=== PATIENT | female | born 1985 | race African-American/Black ===

== ENCOUNTER 2017-05-27 10:51 | Inpatient (IN) | payer OTHER ==
[~2017-05-27] VITALS: Ht 167.6 cm; Wt 62.7 kg
[~2017-05-27 10:51] MED LIST: ACET325T33 PO; BISA-57 PO; BUPR1PAT TD; BUPR1PAT10 TD; CIPR500T4 PO; DOCU-144 PO; FER325 PO; HYDR-3498 PO; LEVO150T87 PO; LEVO25TA59 PO; MEDR10TA2 PO; MELO-216 PO; NITR-58 PO; ONDA4TAB35 PO; ONDA4TAB8 PO; ORTNOV PO; OXYC-283 PO
[2017-05-27 10:53] VITALS: Ht 167.6 cm; Wt 62.7 kg
[2017-05-27] MEDS ORDERED: ONDANSETRON 4 MG INJ IV STA ×2 (12:10→13:38)
[2017-05-27] MEDS ORDERED: SOD CHLORIDE 0.9% 500 ML IV STA ×2 (12:10→13:52)
[2017-05-27] MEDS ORDERED: HYDROmorphONE 1 MG/ML SYG IV STA (12:10)
[2017-05-27 12:53] LABS: ADD UMIC NO; UR ASCORBIC ACID NEGATIVE (NEGATIVE); UR BILIRUBIN (Dip) NEGATIVE (NEGATIVE); UR BLOOD (Dip) NEGATIVE (NEGATIVE); UR CLARITY CLEAR (CLEAR); UR COLOR YELLOW (YELLOW); UR GLUCOSE (Dip) NEGATIVE (NEGATIVE); UR KETONES (Dip) NEGATIVE (NEGATIVE); UR LEUKOCYTE ESTERASE (Dip) NEGATIVE Leu/ul (NEGATIVE); UR NITRITE (Dip) NEGATIVE (NEGATIVE); UR SPECIFIC GRAVITY (Dip) 1.013 (1.003-1.030); UR TOTAL PROTEIN (Dip) NEGATIVE (NEGATIVE); UR UROBILINOGEN (Dip) 1+ mg/dL (NEGATIVE)
[2017-05-27 12:58] LABS: EOSINOPHILS # 0.2 10^3/ul (0.0-0.5); EOSINOPHILS % 4.2 % (0.0-7.0); HEMATOCRIT 23.7 % (37.0-47.0); LYMPHOCYTES # 1.6 10^3/ul (0.8-2.9); LYMPHOCYTES % 42.8 % (15.0-51.0); MEAN CORPUSCULAR HGB CONC 33.8 g/dl (32.0-37.0); MEAN CORPUSCULAR VOLUME 91.9 fl (82.0-101.0); MONOCYTE # 0.5 10^3/ul (0.3-0.9); NEUTROPHIL # 1.5 10^3/ul (1.6-7.5); NEUTROPHILS % 39.7 % (39.0-77.0); PLATELET COUNT 136 10^3/UL (140-415); RED BLOOD COUNT 2.58 10^6/ul (4.20-5.40); RED CELL DISTRIBUTION WIDTH 13.6 % (11.5-14.5); WHITE BLOOD COUNT 3.8 10^3/ul (4.8-10.8)
[2017-05-27 12:59] LABS: MEAN PLATELET VOLUME 11.4 fl (7.4-10.4)
[2017-05-27 13:17] LABS: ALBUMIN 4.6 g/dl (3.3-4.9); ALBUMIN/GLOBULIN RATIO 0.83; BILIRUBIN,INDIRECT 0.3 mg/dl (0-1.1); BILIRUBIN,TOTAL 0.3 mg/dl (0.2-1.3); CALCIUM 9.6 mg/dl (8.4-10.2); CREATININE 1.32 mg/dl (0.44-1.00); TOTAL PROTEIN 10.1 g/dl (6.1-8.1)
[2017-05-27] MEDS ORDERED: HYDROmorphONE 2 MG/ML SYG IV STA ×2 (13:38→15:10)
--- NOTE | 2017-05-27 15:02 | ERD ---
ER Documentation Chief Complaint Chief Complaint Complains of pain from lupus flare up HPI 31-year-old -[place] female with history of sickle cell disease, lupus, ITP, presents to the emergency department complaining of generalized arthralgia and muscle pain for 2 days, according to the patient, probably caused by upper respiratory symptoms. The pain is described as throbbing, 10/10. She has been taking Springer without improvement of the symptoms. Denies fevers, chills, no chest pain, no abdominal pain, no urinary symptoms. ROS A 12-point review of systems was performed and negative other than presented in the history of present illness. SYSTEMIC symptoms: no fever, chills, no night sweats, no weight loss EYE symptoms: No blurred vision, no eye discharge OTOLARYNGEAL symptoms: No hearing loss. No ear pain, +sore throat CARDIOVASCULAR symptoms: No chest pain or discomfort, no palpitations. PULMONARY symptoms: No dyspnea, no cough, no wheezing. GASTROINTESTINAL symptoms: No abdominal pain, no nausea, no vomiting, no diarrhea MUSCULOSKELETAL symptoms: Generalized arthralgias and muscle aches. NEUROLOGY symptoms: No confusion, no syncope, no numbness or tingling. SKIN: No rashes Medications Home Meds Active Scripts Norethindrone-Ethinyl Estradiol (Ortho-Novum ()) 0.035-1 Mg Tablet, 1 TAB PO DAILY, #28 TAB Prov:MARIA L CASTILLO PA-C 03/26/16 Buprenorphine (BUTRANS) 1 Each Patch.tdwk, 10 MG TD weekly, #1 BOX Prov:NOBLE CORRIGAN PA-C 03/08/16 Buprenorphine (BUTRANS) 1 Each Patch.tdwk, 1 EACH TD weekly, #1 BOX Prov:NOBLE CORRIGAN PA-C 03/08/16 Ciprofloxacin Hcl* (Ciprofloxacin Hcl*) 500 Mg Tablet, 500 MG PO BID for 7 Days , TAB Prov:NANETTE SAGASTUME NP 01/26/16 Ondansetron Hcl* (Zofran* ODT) 4 mg -ODT Tab.disper, 4 MG PO Q8 Y for NAUSEA AND /OR VOMITING, #30 TAB Prov:NANETTE SAGASTUME NP 01/26/16 Hydrocodone Bit-Acetaminophen* (Springer*) 5-325 Mg Tab, 1 TAB PO Q6 Y for PAIN, # 20 TAB Prov:NANETTE SAGASTUME NP 01/26/16 Ondansetron Hcl* (Zofran*) 4 Mg Tablet, 4 MG PO Q6H for NAUSEA AND/OR VOMITING, #30 TAB Prov:MICA VALENTINE PA-C 12/27/15 Nitrofurantoin Monohyd Macrocr* (Macrobid*) 100 Mg Capsr, 100 MG PO BID for 14 Days, CAP Prov:MICA VALENTINE PA-C 12/27/15 Hydrocodone Bit-Acetaminophen* (Springer*) 5-325 Mg Tab, 1 TAB PO Q6 Y for PAIN, # 7 TAB Prov:MICA VALENTINE PA-C 12/27/15 Docusate Sodium* (Colace*) 100 Mg Capsule, 100 MG PO TID, #60 CAP Prov:NANETTE SAGASTUME NP 12/10/15 Ondansetron Hcl* (Zofran* ODT) 4 mg -ODT Tab.disper, 4 MG PO Q8 Y for NAUSEA AND /OR VOMITING, #30 TAB Prov:NANETTE SAGASTUME NP 12/10/15 Oxycodone Hcl-Acetaminophen* (Percocet*) 7.5-325 Mg Tablet, 1 TAB PO Q6 Y for SEVERE PAIN LEVEL 7-10, #20 TAB Prov:NANETTE SAGASTUME NP 12/10/15 Ondansetron Hcl* (Zofran* ODT) 4 mg -ODT Tab.disper, 4 MG PO Q6 Y for NAUSEA AND /OR VOMITING, #10 TAB Prov:MICA VALENTINE PA-C 11/28/15 Acetaminophen* (Tylenol*) 325 Mg Tablet, 2 TAB PO Q6 Y for PAIN AND OR ELEVATED TEMP, #20 TAB Prov:MICA VALENTINE PA-C 11/28/15 Medroxyprogesterone Acetate* (Provera*) 10 Mg Tablet, 10 MG PO DAILY for 5 Days , TAB Prov:MICA VALENTINE PA-C 11/28/15 Ferrous Sulfate* (Ferrous Sulfate*) 325 Mg Tabec, 325 MG PO BID, #60 TAB Prov:AUGUSTIN BURKETT PA-C 11/06/15 Ondansetron Hcl* (Zofran* ODT) 4 mg -ODT Tab.disper, 4 MG PO Q8 Y for NAUSEA AND /OR VOMITING, #30 TAB Prov:NANETTE SAGASTUME NP 08/27/15 Ondansetron Hcl* (Zofran* ODT) 4 mg -ODT Tab.disper, 4 MG PO Q6 Y for NAUSEA AND /OR VOMITING, #30 TAB Prov:CHON CULLEN MD 08/15/15 Levothyroxine Sodium* (Synthroid*) 150 Mcg Tab, 150 MCG PO AC BREAKFAST for 30 Days, TAB Prov:RICK VIERA MD 08/10/15 Docusate Sodium* (Colace*) 100 Mg Cap, 100 MG PO Q12H Y for CONSTIPATION for 14 Days, CAP Prov:RICK VIERA MD 08/10/15 Bisacodyl* (Dulcolax*) 5 Mg Tabec, 5 MG PO DAILY Y for CONSTIPATION for 30 Days , BOT Prov:RICK VIERA MD 08/10/15 Reported Medications Levothyroxine Sodium* (Synthroid*) Unknown Strength Tablet, PO BEFORE BREAKFAST , #30 TAB 12/10/15 Meloxicam* (Meloxicam*) 7.5 Mg Tablet, 7.5 MG PO DAILY, #30 TAB 08/07/15 Buprenorphine (Butrans) 1 Each Patch.tdwk, 1 EACH TD DAILY 08/07/15 Hydrocodone Bit-Acetaminophen* (Springer*) 5-325 Mg Tab, 1 TAB PO Q4H Y for PAIN, TAB 08/07/15 Allergies Allergies: Coded Allergies: immune globulin,gamma (IgG) human (Verified Allergy, Unknown, HYPOTENSION , 05/27/17) AFTER HYPOTENSION EVENT RELATED TO CARIMUNE, PATIENT TOLERATED 4 DAYS OF CARIMUNE THERAPY AT A MAX RATE OF 50 ML/HR STARTED EVERY DAY AT 25 ML/HR THEN INCREASED TO 50 ML/HR AFTER ON HOUR WAS PREMEDICATED WITH BENADRYL 50 MG PO 30 MINUTES PRIOR INFUSION DAILY VM PMhx/Soc History of Surgery: Yes (C-SEC X1, SPLENECTOMY, IVC FILTER) Anesthesia Reaction: No Hx Neurological Disorder: No Hx Respiratory Disorders: No Hx Cardiac Disorders: No Hx Psychiatric Problems: No Hx Miscellaneous Medical Probl: Yes (LUPUS, ITP, hypothyroidislm, sickle cell disease) Hx Alcohol Use: No Hx Substance Use: No Hx Tobacco Use: Yes Smoking Status: Current some day smoker Physical Exam Vitals Vital Signs Date Time Temp Pulse Resp B/P Pulse Ox O2 Delivery O2 Flow Rate FiO2 05/27/17 10:53 98.1 92 20 125/74 96 Physical Exam Patient is in mild distress due to pain, vital signs stable. Alert and fully oriented. EYES: PERRLA, EOMI, Sclera and conjunctiva appear normal. EARS: Canals clear, tympanic membranes WNL THROAT: Normal oropharynx. NECK: Supple, No lymphadenopathy. Full ROM without pain or tenderness. HEART: RRR, no rubs, murmurs, clicks or gallops. LUNGS: Clear to auscultation. ABDOMEN: Soft, non-tender without masses or hepatosplenomegaly. EXTREMITIES: No edema bilaterally. BACK: Full ROM, no deformity, normal back exam NEURO: Cranial nerves grossly intact, no motor or sensory deficit Result Diagram: 05/27/17 1245 05/27/17 1245 Results 24 hrs Laboratory Tests Test 05/27/17 12:25 05/27/17 12:45 05/27/17 17:45 Urine Color YELLOW Urine Clarity CLEAR Urine pH 5.0 Urine Specific Lena 1.013 Urine Ketones NEGATIVEmg/dL Urine Nitrite NEGATIVEmg/dL Urine Bilirubin NEGATIVEmg/dL Urine Urobilinogen 1+mg/dL Urine Leukocyte Esterase NEGATIVELeu/ul Urine Hemoglobin NEGATIVEmg/dL Urine Glucose NEGATIVEmg/dL Urine Total Protein NEGATIVEmg/dl White Blood Count 3.810^3/ul Red Blood Count 2.5810^6/ul Hemoglobin 8.0g/dl Hematocrit 23.7% Mean Corpuscular Volume 91.9fl Mean Corpuscular Hemoglobin 31.0pg Mean Corpuscular Hemoglobin Concent 33.8g/dl Red Cell Distribution Width 13.6% Platelet Count 38103^3/UL Mean Platelet Volume 11.4fl Neutrophils % 39.7% Lymphocytes % 42.8% Monocytes % 12.0% Eosinophils % 4.2% Basophils % 1.0% Nucleated Red Blood Cells % 0.0/100WBC Neutrophils # 1.510^3/ul Lymphocytes # 1.610^3/ul Monocytes # 0.510^3/ul Eosinophils # 0.210^3/ul Basophils # 0.010^3/ul Nucleated Red Blood Cells # 0.010^3/ul Absolute Reticulocyte Count 0.026X10^6 Percent Reticulocyte Count 1.0% Sodium Level 141mmol/L Potassium Level 4.0mmol/L Chloride Level 102mmol/L Carbon Dioxide Level 29mmol/L Anion Gap 14 Blood Urea Nitrogen 6mg/dl Creatinine 1.32mg/dl Glucose Level 79mg/dl Calcium Level 9.6mg/dl Total Bilirubin 0.3mg/dl Direct Bilirubin 0.00mg/dl Indirect Bilirubin 0.3mg/dl Aspartate Amino Transf (AST/SGOT) 56IU/L Alanine Aminotransferase (ALT/SGPT) 66IU/L Alkaline Phosphatase 50IU/L Total Protein 10.1g/dl Albumin 4.6g/dl Globulin 5.50g/dl Albumin/Globulin Ratio 0.83 Prothrombin Time 15.3Sec Prothrombin Time Ratio 1.2 INR International Normalized Ratio 1.19 Activated Partial Thromboplast Time 34.0Sec Current Medications Medications (Trade) Dose Ordered Sig/Navi Route PRN Reason Start Time Stop Time Status Last Admin Dose Admin Sodium Chloride (NS) 500 ml @ 500 mls/hr Q1H STAT IV 05/27/17 12:10 05/27/17 13:09 DC 05/27/17 12:44 Hydromorphone HCl (Dilaudid) 1 mg ONCE STAT IV 05/27/17 12:10 05/27/17 12:15 DC 05/27/17 12:44 Ondansetron HCl (Zofran Inj) 4 mg ONCE STAT IV 05/27/17 12:10 05/27/17 12:15 DC 05/27/17 12:43 Ondansetron HCl (Zofran Inj) 4 mg ONCE STAT IV 05/27/17 13:38 05/27/17 13:40 DC 05/27/17 13:54 Hydromorphone HCl 2 mg 2 mg ONCE STAT IV 05/27/17 13:38 05/27/17 13:40 DC 05/27/17 13:54 Sodium Chloride 500 ml @ 500 mls/hr Q1H STAT IV 05/27/17 13:52 05/27/17 14:51 DC 05/27/17 13:59 Sodium Chloride (NS) 1,000 ml @ 1,000 mls/hr Q1H ONCE IV 05/27/17 15:30 05/27/17 16:29 DC 05/27/17 15:42 Hydromorphone HCl (Dilaudid) 2 mg ONCE STAT IV 05/27/17 15:10 05/27/17 15:19 DC 05/27/17 15:43 Ondansetron HCl (Zofran Inj) 4 mg BRIDGE ORDER PRN IV NAUSEA AND/OR VOMITING 05/27/17 18:30 05/28/17 18:29 Acetaminophen 650 mg 650 mg ER BRIDGE PRN PO MILD PAIN/FEVER 05/27/17 18:30 05/28/17 18:29 Sodium Chloride (NS) 1,000 ml @ 125 mls/hr Q8H IV 05/27/17 18:09 UNV IV Flush (NS 3 ml) 3 ml PER PROTOCOL IV 05/27/17 18:30 UNV Ondansetron HCl (Zofran Inj) 4 mg Q6H PRN IV NAUSEA AND/OR VOMITING 05/27/17 18:30 UNV Acetaminophen (Tylenol Tab) 650 mg Q6H PRN PO PAIN LEVEL 1-3 OR FEVER 05/27/17 18:30 UNV Oxycodone/ Acetaminophen (Percocet (5/ 325)) 2 tab Q6H PRN PO SEVERE PAIN LEVEL 7-10 05/27/17 18:30 UNV Hydromorphone HCl (Dilaudid) 0.5 mg Q4H PRN IV SEVERE PAIN LEVEL 7-10 05/27/17 18:30 UNV Famotidine (Pepcid) 20 mg Q12 PO 05/27/17 21:00 UNV Bisacodyl (Dulcolax) 5 mg DAILY PRN PO CONSTIPATION 05/27/17 18:30 UNV Ferrous Sulfate (Ferrous Sulfate (Ec)) 325 mg BID PO 05/27/17 21:00 UNV Levothyroxine Sodium (Synthroid) 150 mcg AC BREAKFAST PO 05/28/17 07:00 UNV Medroxyprogesterone Acetate (Provera) 10 mg DAILY PO 05/28/17 09:00 UNV Docusate Sodium (Colace) 100 mg TID PO 05/27/17 21:00 UNV Procedures/MDM 31y/o -[place] female patient with history of sickle cell, lupus, ITP, presents to the ED c/o intractable pain for 3 days. Vital signs stable, Physical exam diffuse tenderness to palpation. Differential diagnosis include but not limited to: Vaso-occlusive crisis, aplastic crisis, splenic sequestration crisis, less likely acute chest syndrome. Pertinent Data: Labs: CBC: Hemoglobin 8.0, hematocrit 3.8, BMP: Creatinine 1.3, normal electrolytes. Retic count: 1% Radiology: CXR: normal Physical examination and clinical presentation consistent most likely with vaso- occlusive crisis with intractable pain. During the ED course the patient received treatment with multiple doses of Dilaudid up to 6mg and IV hydration 2 L of normal saline, persistent with severe pain 03/29, therefore, I will request an evaluation for hospitalist for admission. Case discussed with Dr. Jorge who accepts the admission. The patient is stable to go to [facility] [place]. Results and clinical impression discussed with patient who agrees with management. The patient most likely needs to be admitted for pain management. Disclaimer: Inadvertent spelling and grammatical errors are likely due to EHR/ dictation software use and do not reflect on the overall quality of patient care. Also, please note that the electronic time recorded on this note does not necessarily reflect the actual time of the patient encounter. Departure Diagnosis: Primary Impression: Intractable pain Additional Impressions: Sickle cell anemia Lupus (systemic lupus erythematosus) Condition: Stable RENETTA MERAZ MD May 27, 2017 15:02
[2017-05-27] MEDS ORDERED: SOD CHLORIDE 0.9% 1,000 ML IV ONE (15:30)
--- NOTE | 2017-05-27 15:41 | RADRPT ---
PROCEDURE: XR Chest. CLINICAL INDICATION: Chest pain TECHNIQUE: PA and Lateral views of the chest were obtained. COMPARISON: None. FINDINGS: The cardiomediastinal silhouette is within normal limits. The lungs are clear. No signs of pleural fluid or pneumothorax are seen. The osseous structures and soft tissues are unremarkable. Surgical clips are seen in the left upper quadrant. IMPRESSION: No evidence for active cardiopulmonary disease. RPTAT:AAJJ Caden Elkins Physician Date Time Electronically viewed and signed by Caden Elkins Physician on 05/27/2017 15:40 /
[2017-05-27] MEDS ORDERED: ONDANSETRON 4 MG INJ IV PRN (18:30)
[2017-05-27] MEDS ORDERED: HYDROmorphONE 0.5 MG/0.5 ML SYG IV PRN (18:30)
[2017-05-27] MEDS ORDERED: ACETAMINOPHEN 325 MG TAB PO PRN ×2 (18:30)
[2017-05-27] MEDS ORDERED: NACL 0.9% 3 ML SYG IV SCH (18:30)
[2017-05-27] MEDS ORDERED: BISACODYL (EC) 5 MG TAB PO PRN ×2 (18:30→19:30)
[2017-05-27 18:33] LABS: INR 1.19; PROTIME 15.3 Sec (11.9-14.9); PT RATIO 1.2
[2017-05-27] MEDS: SOD CHLORIDE 0.9% 1,000 ML IV SCH (19:26)
[2017-05-27] MEDS: HYDROmorphONE 1 MG/ML SYG IV PRN (19:43)
--- NOTE | 2017-05-27 20:22 | HP ---
Date/Time of Note Date/Time of Note DATE: 05/27/17 TIME: 20:00 Assessment/Plan VTE Prophylaxis VTE Prophylaxis Intervention: ambulation, anti-embolic stocking Lines/Catheters IV Catheter Type (from Nrsg): Peripheral IV Central line still needed: No Urinary Cath still in place: No Assessment/Plan Problems: (1) Sickle cell crisis Status: Acute Comment: The patient is having sickle cell crisis with intractable pain over body including multiple and bilateral hand and leg joint pain . No arthritic change leaded to active lupus at this time, Plan 1.Hydration 2.Pain management with IV Dilaudid for severe pain and Percocet for moderate pain 3.Ferrous sulfate 4.To find out if there is any precipitating factor like sepsis or any source of infection. Procalcitonin level checked . Blood culture if T >101 . (2) Intractable pain Status: Acute Comment: The patient is having sickle cell crisis with intractable pain over body including multiple and bilateral hand and leg joint pain . No arthritic change leaded to active lupus at this time, Plan 1.Hydration 2.Pain management with IV Dilaudid for severe pain and Percocet for moderate pain 3.Ferrous sulfate 4.To find out if there is any precipitating factor like sepsis or any source of infection. Procalcitonin level checked . Blood culture if T >101 . (3) Sickle cell anemia Status: Chronic Comment: Repeated CBC in the morning Reticulocyte counts checked Ferrous sulfate and folic acid to be continued. Stool for occult blood if applicable Qualifiers: Sickle-cell associated disorders: with unspecified crisis Qualified Code: D57.00 - Hb-SS disease with crisis (4) Pain syndrome, chronic Status: Acute Comment: Acute on top of chronic pain syndrome. Butrans held but will be resumed upon discharge IV Dilaudid for sever pain and Percocet given for moderate pain given. (5) Anemia Status: Chronic Comment: Due to Sickle cell trait S/P splenectomy and Lupus. Iron study . folic acid given Cont'd Hospitalization Reason: IV pain management and IV fluid given HPI/ROS Admit Date/Time Admit Date/Time 05/27/2017 ROS Constitutional: fatigue, nausea, poor po, No chills, No diaphoresis, No disoriented, No febrile, No improved, No no complaints, No other, No weight change Eyes: other (upper eye lids swollen), No discharge, No no complaints, No pain, No redness, No visual change ENT: No bleeding, No congestion, No discharge, No dysphagia, No no complaints, No other, No pain, No sore throat Respiratory: No cough, No no complaints, No other, No pain, No pleuritic pain, No shortness of breath, No sputum, No wheezing Cardiovascular: No chest pain, No edema, No lightheadedness, No no complaints, No orthopenea, No other, No palpitations, No paroxysmal nocturnal dyspnea Gastrointestinal: decreased appetite, nausea, No blood, No constipation, No diarrhea, No flatus, No no complaints, No other , No pain, No passing stool, No vomiting Musculoskeletal: back pain, bone/joint pain, neck pain, No no complaints, No other, No restricted range of motion, No swelling Skin: No bruising, No erythema, No laceration, No no complaints, No other, No pruritis, No rash, No skin lesions Neurologic: No confusion, No dizziness, No focal-weakness, No headache, No no complaints, No other, No seizure, No syncope Endocrine: No dry skin, No no complaints, No other, No polydypsia, No polyuria , No temp intolerance, No weight change Lymphatic: No adenopathy, No lymphadema, No no complaints, No other, No tender nodes Psychological: No anxiety, No confusion, No depression, No nl mood/affect, No no complaints, No other, No suicidal Immunologic: No immunodeficiency, No no complaints, No other, No pruritis, No rhinitis, No urticaria PMH/Family/Social Past Medical History Sickle cell trait Chronic ITP Chronic pain on Butrans Hypothyroidism Lupus Past Surgical History Past Surgical Hx: other (splenectomy,Hystercetomy and IVC filter placement in 2012) Family History Significant Family History: other (sicckle diease and Lupus) Social History Alcohol Use: none Smoking Status: Current some day smoker (1 -2 cigarettes every 1-2 days) Drug Use: none Exam/Review of Systems Vital Signs Vitals Vital Signs Date Time Temp Pulse Resp B/P Pulse Ox O2 Delivery O2 Flow Rate FiO2 05/27/17 19:23 97.5 67 20 109/60 97 Room Air Exam Constitutional: alert, oriented, well developed Psych: nl mood/affect, no complaints, No anxiety, No confusion, No depression, No other, No suicidal Head: atraumatic, normocephalic, No hematomas, No lacerations, No other Eyes: EOMI, PERRL, nl sclera, other (moderately pallor but no jaundice) ENMT: mucosa pink and moist, nl external ears & nose, nl lips & teeth, nl nasal mucosa & septum, No intubated, No other, No tympanic membranes Neck: non-tender, supple, No bruits, No jvd, No masses, No nuchal rigidity, No other, No thyromegaly Respiratory: clear to auscultation, normal air movement, No congested cough, No crackles/rales, No diminished breath sounds, No intercostal retraction, No labored breathing, No other, No respirations, No tactile fremitus, No wheezing Cardiovascular: nl pulses, regular rate and rhythm, No S3, No S4, No bruits, No diastolic murmur, No edema, No gallop, No irregular rhythm, No jugular venous distention (JVD), No murmurs/extra sounds, No other, No rub, No systolic murmur Gastrointestinal: nl liver, spleen, non-tender, soft, No ascites, No bowel sounds, No distended, No firm, No hepatomegaly, No mass , No other, No rebound or guarding, No splenomegaly, No surgical scars, No tender Musculoskeletal: nl extremities to inspection, nl gait and stance, No joint tenderness, No muscle tone, No muscle weakness, No other, No range of motion, No spine non-tender, No swelling Extremities: No calf tenderness, No clubbing, No cyanosis, No edema, No normal pulses, No other, No palpable cord, No pitting pedal edema, No tenderness Neurological: KNIFE GLAZER II-XII intact, nl mental status, nl speech, nl strength Skin: nl turgor, No diaphoresis, No ecchymosis, No laceration, No other, No puncture, No rash or lesions Lymph: No enlarged, No nontender, No other Labs Result Diagram: 05/27/17 1245 05/27/17 1245 Medications Medications Current Medications Sodium Chloride (NS) 1,000 ml @ 125 mls/hr Q8H IV Last administered on t 19:26; Admin Dose 125 MLS/HR; Start 12/8/17 at 18:09 Ondansetron HCl (Zofran Inj) 4 mg Q6H PRN IV NAUSEA AND/OR VOMITING; Start 05/27/17 at 18:30 Oxycodone/ Acetaminophen (Percocet (5/ 325)) 2 tab Q6H PRN PO SEVERE PAIN LEVEL 7-10; Start 05/27/17 at 18:30 Famotidine (Pepcid) 20 mg Q12 PO ; Start 05/27/17 at 21:00 Ferrous Sulfate (Ferrous Sulfate (Ec)) 325 mg BID PO ; Start 05/27/17 at 21:00 Medroxyprogesterone Acetate (Provera) 10 mg DAILY PO ; Start 05/28/17 at 09:00 Docusate Sodium (Colace) 100 mg TID PO ; Start 05/27/17 at 21:00 Hydromorphone HCl (Dilaudid) 1 mg Q4H PRN IV SEVERE PAIN LEVEL 7-10 Last administered on 05/27/17t 19:43; Admin Dose 1 MG; Start 05/27/17 at 22:30 Bisacodyl (Dulcolax) 10 mg DAILY PRN PO CONSTIPATION; Start 05/27/17 at 19:30 NICOL CHAVEZ MD May 27, 2017 20:14
[2017-05-27] MEDS ORDERED: FERROUS SULFATE (EC) 325 MG TAB PO SCH (21:00)
[2017-05-27 22:29] VITALS: TEMP 98
[2017-05-27] MEDS: FAMOTIDINE 20 MG TAB PO SCH (22:34)
[2017-05-28] VITALS: BP 107/67; PULSE 56; RESP 18
[2017-05-28] MEDS: DIPHENHYDRAMINE 50 MG INJ IV SCH ×5 (00:17→18:01)
[2017-05-28] MEDS: DOCUSATE SODIUM 100 MG CAP PO SCH ×4 (00:17→20:57)
[2017-05-28] MEDS: HYDROmorphONE 1 MG/ML SYG IV PRN ×2 (00:24→05:32)
[2017-05-28] MEDS: METHYLPREDNISOLONE 125 MG INJ IV SCH ×4 (00:34→18:01)
[2017-05-28] MEDS: OXYCODONE/ACETAMINOPHEN (5/325) TAB PO PRN (03:09)
[2017-05-28] MEDS: SOD CHLORIDE 0.9% 1,000 ML IV SCH ×3 (03:11→12:54)
[2017-05-28 05:45] LABS: HEMATOCRIT 22.8 % (37.0-47.0); HEMOGLOBIN 7.4 g/dl (12.0-16.0); MEAN CORPUSCULAR HEMOGLOBIN 31.1 pg (29.0-33.0); MEAN CORPUSCULAR HGB CONC 32.5 g/dl (32.0-37.0); MEAN CORPUSCULAR VOLUME 95.8 fl (82.0-101.0); PLATELET COUNT 115 10^3/UL (140-415); RED BLOOD COUNT 2.38 10^6/ul (4.20-5.40); RED CELL DISTRIBUTION WIDTH 14.1 % (11.5-14.5); WHITE BLOOD COUNT 5.2 10^3/ul (4.8-10.8)
[2017-05-28 06:11] LABS: POSITIVE DIFF @See below
[2017-05-28] MEDS: LEVOTHYROXINE 150 MCG TAB PO SCH (07:25)
[2017-05-28 07:53] LABS: ADD UMIC NO; UR ASCORBIC ACID NEGATIVE (NEGATIVE); UR BILIRUBIN (Dip) NEGATIVE (NEGATIVE); UR BLOOD (Dip) NEGATIVE (NEGATIVE); UR CLARITY CLEAR (CLEAR); UR COLOR YELLOW (YELLOW); UR GLUCOSE (Dip) NEGATIVE (NEGATIVE); UR KETONES (Dip) NEGATIVE (NEGATIVE); UR LEUKOCYTE ESTERASE (Dip) NEGATIVE Leu/ul (NEGATIVE); UR NITRITE (Dip) NEGATIVE (NEGATIVE); UR SPECIFIC GRAVITY (Dip) 1.012 (1.003-1.030); UR TOTAL PROTEIN (Dip) NEGATIVE (NEGATIVE); UR UROBILINOGEN (Dip) NEGATIVE (NEGATIVE)
[2017-05-28 08:00] VITALS: BP 100/60; RESP 18
[2017-05-28] MEDS ORDERED: HYDROmorphONE 0.5 MG/0.5 ML SYG IV PRN (09:00)
[2017-05-28] MEDS ORDERED: MEDROXYPROGESTERONE 10 MG TAB PO SCH (09:00)
[2017-05-28] MEDS: FAMOTIDINE 20 MG TAB PO SCH ×2 (09:20→20:57)
[2017-05-28] MEDS ORDERED: DIPHENHYDRAMINE 50 MG INJ IV PRN (09:30)
[2017-05-28 09:41] LABS: IRON 76 ug/dl (35-150)
[2017-05-28 09:50] LABS: TOTAL IRON BINDING CAPACITY 252 ug/dl (241-421)
[2017-05-28] MEDS ORDERED: FUROSEMIDE 20 MG INJ IV ONE (10:00)
[2017-05-28] MEDS ORDERED: SOD CHLORIDE 0.9% 250 ML IV* ONE (10:00)
--- NOTE | 2017-05-28 10:31 | PN ---
Date/Time of Note Date/Time of Note DATE: 05/28/17 TIME: 10:12 Assessment/Plan VTE Prophylaxis VTE Prophylaxis Intervention: ambulation, anti-embolic stocking Lines/Catheters IV Catheter Type (from Nrsg): Peripheral IV Central line still needed: No Urinary Cath still in place: No Assessment/Plan Problems: (1) Sickle cell anemia Status: Chronic Comment: Blood transfusion given. She is medicated with Benadryl,Solu Medrol before blood transfusion and Lasix given after 1 U PRBC given. CBC repeated in A.M. 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 Plan to discharge her home tomorrow if her pain controlled and her weakness and tiredness better after blood transfusion. (4) Pain syndrome, chronic Status: Acute Comment: Butrans patch resumed along with IV Dilaudid for breakthrough pain. (5) Lupus (systemic lupus erythematosus) Status: Chronic Comment: IV Solumedral given Qualifiers: Systemic lupus erythematosus organ involvement: unspecified (6) Anemia Status: Chronic Comment: It is relate to sickle cell crisis at this time. She has symptomatic anemia. She feels weak ,short of breath and tired when walking 2 levels of upstairs. 2 Units PRBCs transfusion given today .Repeated CBC after 2 Units PRBCs Qualifiers: Anemia type: other cause Other causes of anemia: chronic disease, other Qualified Code: D63.8 - Anemia in other chronic diseases classified elsewhere (7) Hypothyroid Status: Chronic Comment: TSH repeated in A.M. Synthroid resumed Qualifiers: Hypothyroidism type: acquired Qualified Code: E03.9 - Acquired hypothyroidism Cont'd Hospitalization Reason: Blood tansfusion,IV hydration and IV Dilaudid given as pain management Subjective 24 Hr Interval Summary Free Text/Dictation She stated that she was a little bit better. She is still having generalized aching pain over her body. Dilaudid was helpful for her at this time. She was still having poor appetite since yesterday. No headache or blurred vision. No blood in urine or in stool. Denied N/V. No abdominal pain, Upper eye lid was swollen still. No flu like symptom today. No fever nor chill. No chest pain nor short of breath. No PND or orthopnea. Constitutional: No chills, No diaphoresis, No disoriented, No febrile, No improved, No no complaints, No other, No poor po, No requiring IVF, No requiring O2 Eyes: other (swollen upper eye lids), No discharge, No no complaints, No pain, No redness, No visual change Respiratory: No cough, No no complaints, No other, No pain, No pleuritic pain, No shortness of breath, No sputum, No wheezing Cardiovascular: No chest pain, No edema, No lightheadedness, No no complaints, No orthopenea, No other, No palpitations, No paroxysmal nocturnal dyspnea Gastrointestinal: No blood, No constipation, No decreased appetite, No diarrhea , No flatus, No nausea, No no complaints, No other, No pain, No passing stool, No vomiting Genitourinary: No bleeding, No discharge, No dysuria, No flank pain, No hematuria, No no complaints, No other Musculoskeletal: back pain, bone/joint pain, other (generalized body ache and multiple wrist and knee joints pain), No neck pain, No no complaints, No restricted range of motion, No swelling Skin: No bruising, No erythema, No laceration, No no complaints, No other, No pruritis, No rash, No skin lesions Neurologic: No confusion, No dizziness, No focal-weakness, No headache, No no complaints, No other, No seizure, No syncope Endocrine: No dry skin, No no complaints, No other, No polydypsia, No polyuria , No temp intolerance Lymphatic: No adenopathy, No lymphadema, No no complaints, No other, No tender nodes Psychological: No anxiety, No confusion, No depression, No nl mood/affect, No no complaints, No other, No suicidal Immunologic: No immunodeficiency, No no complaints, No other, No pruritis, No rhinitis, No urticaria Exam/Review of Systems Vital Signs Vitals Vital Signs Date Time Temp Pulse Resp B/P Pulse Ox O2 Delivery O2 Flow Rate FiO2 05/28/17 08:00 97.9 60 18 100/60 95 05/27/17 22:29 Room Air Intake and Output 05/27/17 05/27/17 05/28/17 15:00 23:00 07:00 Intake Total 1730 ml Output Total 600 ml Balance 1130 ml Exam Constitutional: alert, oriented, well developed Psych: nl mood/affect, no complaints, No anxiety, No confusion, No depression, No other, No suicidal Head: atraumatic, normocephalic Eyes: EOMI, PERRL, nl lids, nl sclera, other (markedly pallor) ENMT: mucosa pink and moist, nl external ears & nose, nl lips & teeth, nl nasal mucosa & septum, No intubated, No other, No tympanic membranes Neck: non-tender, supple, No bruits, No jvd, No masses, No nuchal rigidity, No other, No thyromegaly Respiratory: clear to auscultation, normal air movement, No congested cough, No crackles/rales, No diminished breath sounds, No intercostal retraction, No labored breathing, No other, No respirations, No tactile fremitus, No wheezing Cardiovascular: nl pulses, regular rate and rhythm Gastrointestinal: nl liver, spleen, non-tender, soft, No ascites, No bowel sounds, No distended, No firm, No hepatomegaly, No mass , No other, No rebound or guarding, No splenomegaly, No surgical scars, No tender Musculoskeletal: nl extremities to inspection, nl gait and stance, No joint tenderness, No muscle tone, No muscle weakness, No other, No range of motion, No spine non-tender, No swelling Extremities: normal pulses, No calf tenderness, No clubbing, No cyanosis, No edema, No other, No palpable cord, No pitting pedal edema, No tenderness Neurological: AIRCONDITIONING ENGINEER II-XII intact, nl mental status, nl speech, nl strength, No DTR's symmetric, No confused, No focal weakness, No lethargic, No numbness , No other, No reflexes, No unresponsive Skin: nl turgor, No diaphoresis, No ecchymosis, No laceration, No other, No puncture, No rash or lesions Lymph: nl lymph nodes, No enlarged, No nontender, No other Results Result Diagram: 05/28/17 0423 05/27/17 1245 Results 24 hrs Laboratory Tests Test 05/27/17 12:25 05/27/17 12:45 05/27/17 17:45 05/28/17 00:15 Urine Color YELLOW YELLOW Urine Clarity CLEAR CLEAR Urine pH 5.0 5.0 Urine Specific [place] 1.013 1.012 Urine Ketones NEGATIVE NEGATIVE Urine Nitrite NEGATIVE NEGATIVE Urine Bilirubin NEGATIVE NEGATIVE Urine Urobilinogen 1+ H NEGATIVE Urine Leukocyte Esterase NEGATIVE NEGATIVE Urine Hemoglobin NEGATIVE NEGATIVE Urine Glucose NEGATIVE NEGATIVE Urine Total Protein NEGATIVE NEGATIVE White Blood Count 3.8 #L Red Blood Count 2.58 L Hemoglobin 8.0 L Hematocrit 23.7 L Mean Corpuscular Volume 91.9 Mean Corpuscular Hemoglobin 31.0 Mean Corpuscular Hemoglobin Concent 33.8 Red Cell Distribution Width 13.6 Platelet Count 136 L Mean Platelet Volume 11.4 #H Neutrophils % 39.7 Lymphocytes % 42.8 Monocytes % 12.0 H Eosinophils % 4.2 Basophils % 1.0 Nucleated Red Blood Cells % 0.0 Neutrophils # 1.5 L Lymphocytes # 1.6 Monocytes # 0.5 Eosinophils # 0.2 Basophils # 0.0 Nucleated Red Blood Cells # 0.0 Absolute Reticulocyte Count 0.026 Percent Reticulocyte Count 1.0 Sodium Level 141 Potassium Level 4.0 Chloride Level 102 Carbon Dioxide Level 29 Anion Gap 14 Blood Urea Nitrogen 6 L Creatinine 1.32 H Glucose Level 79 Calcium Level 9.6 Total Bilirubin 0.3 Direct Bilirubin 0.00 Indirect Bilirubin 0.3 Aspartate Amino Transf (AST/SGOT) 56 H Alanine Aminotransferase (ALT/SGPT) 66 Alkaline Phosphatase 50 Total Protein 10.1 H Albumin 4.6 Globulin 5.50 H Albumin/Globulin Ratio 0.83 Prothrombin Time 15.3 H Prothrombin Time Ratio 1.2 INR International Normalized Ratio 1.19 Activated Partial Thromboplast Time 34.0 Test 05/28/17 04:23 05/28/17 04:30 White Blood Count 5.2 # Red Blood Count 2.38 L Hemoglobin 7.4 L Hematocrit 22.8 L Mean Corpuscular Volume 95.8 Mean Corpuscular Hemoglobin 31.1 Mean Corpuscular Hemoglobin Concent 32.5 Red Cell Distribution Width 14.1 Platelet Count 115 L Mean Platelet Volume 12.0 H Neutrophils % Lymphocytes % Monocytes % Eosinophils % Basophils % Nucleated Red Blood Cells % 0.0 Neutrophils # Lymphocytes # Monocytes # Eosinophils # Basophils # Nucleated Red Blood Cells # Iron Level 76 Total Iron Binding Capacity 252 Percent Iron Saturation 30 Magnesium Level 1.9 Medications Medications Current Medications Sodium Chloride (NS) 1,000 ml @ 125 mls/hr Q8H IV Last administered on 03:11; Admin Dose 125 MLS/HR; Start 05/27/17 at 18:09 Ondansetron HCl (Zofran Inj) 4 mg Q6H PRN IV NAUSEA AND/OR VOMITING; Start 05/27/17 at 18:30 Oxycodone/ Acetaminophen (Percocet (5/ 325)) 2 tab Q6H PRN PO SEVERE PAIN LEVEL 7-10 Last administered on 05/28/17 03:09; Admin Dose 2 TAB; Start at 18:30 Famotidine (Pepcid) 20 mg Q12 PO Last administered on 05/28/17 09:20; Admin Dose 20 MG; Start 05/27/17 at 21:00 Docusate Sodium (Colace) 100 mg TID PO Last administered on 05/28/17 09:20; Admin Dose 100 MG; Start 05/27/17 at 21:00 Bisacodyl (Dulcolax) 10 mg DAILY PRN PO CONSTIPATION; Start 05/27/17 at 19:30 Methylprednisolone Sodium Succinate (Solu-Medrol) 60 mg Q6 IV Last administered on 05/28/17 05:31; Admin Dose 60 MG; Start 05/28/17 at 00:00 Diphenhydramine HCl (Benadryl) 25 mg Q6 IV ; Start 05/28/17 at 10:00 Hydromorphone HCl (Dilaudid) 0.5 mg Q3H PRN IV SEVERE PAIN LEVEL 7-10; Start 05/28/17 at 12:00 NICOL CHAVEZ MD May 28, 2017 10:23
[2017-05-28 11:00] LABS: EOSINOPHILS % (M) 1 % (0-7); MONOCYTES % (M) 4 % (0-11); PLATELET ESTIMATE DECREASED; POLYCHROMASIA 1+ (0-0)
[2017-05-28] MEDS: HYDROmorphONE 0.5 MG/0.5 ML SYG IV PRN ×4 (12:20→21:32)
[2017-05-28] MEDS: FOLIC ACID 1 MG TAB PO SCH (18:27)
[2017-05-28 20:32] VITALS: BP 103/67; RESP 22
[2017-05-29] MEDS: HYDROmorphONE 0.5 MG/0.5 ML SYG IV PRN ×3 (00:14→06:49)
[2017-05-29] MEDS: METHYLPREDNISOLONE 125 MG INJ IV SCH ×2 (00:14→06:38)
[2017-05-29] MEDS: DIPHENHYDRAMINE 50 MG INJ IV SCH ×2 (00:14→06:38)
[2017-05-29] MEDS: ONDANSETRON 4 MG INJ IV PRN ×2 (00:24→06:42)
[2017-05-29 01:30] VITALS: BP 105/58; PULSE 74; RESP 18
[2017-05-29] MEDS: SOD CHLORIDE 0.9% 1,000 ML IV SCH (03:43)
[2017-05-29 05:25] LABS: HEMATOCRIT 29.7 % (37.0-47.0); HEMOGLOBIN 10.1 g/dl (12.0-16.0); LYMPHOCYTES # 0.9 10^3/ul (0.8-2.9); LYMPHOCYTES % 9.7 % (15.0-51.0); MEAN CORPUSCULAR HEMOGLOBIN 30.3 pg (29.0-33.0); MEAN CORPUSCULAR VOLUME 89.2 fl (82.0-101.0); MEAN PLATELET VOLUME 12.4 fl (7.4-10.4); MONOCYTE # 0.3 10^3/ul (0.3-0.9); MONOCYTES % 3.8 % (0.0-11.0); NEUTROPHIL # 7.6 10^3/ul (1.6-7.5); NEUTROPHILS % 85.3 % (39.0-77.0); PLATELET COUNT 109 10^3/UL (140-415); RED BLOOD COUNT 3.33 10^6/ul (4.20-5.40); RED CELL DISTRIBUTION WIDTH 14.5 % (11.5-14.5); WHITE BLOOD COUNT 8.9 10^3/ul (4.8-10.8)
[2017-05-29 06:36] LABS: ALBUMIN 4.1 g/dl (3.3-4.9); ALBUMIN/GLOBULIN RATIO 0.85; BILIRUBIN,INDIRECT 0.7 mg/dl (0-1.1); BILIRUBIN,TOTAL 0.7 mg/dl (0.2-1.3); CALCIUM 8.8 mg/dl (8.4-10.2); CREATININE 1.06 mg/dl (0.44-1.00); POTASSIUM 3.6 mmol/L (3.5-5.1); TOTAL PROTEIN 8.9 g/dl (6.1-8.1)
[2017-05-29] MEDS: LEVOTHYROXINE 150 MCG TAB PO SCH (06:38)
[2017-05-29 07:26] VITALS: BP 122/80; RESP 20
[2017-05-29] MEDS: FOLIC ACID 1 MG TAB PO SCH (09:39)
[2017-05-29] MEDS: FAMOTIDINE 20 MG TAB PO SCH (09:39)
[2017-05-29] MEDS: DOCUSATE SODIUM 100 MG CAP PO SCH (09:39)
[2017-05-29] MEDS ORDERED: HYDROmorphONE 1 MG/ML SYG IM STA (09:47)
[2017-05-29] MEDS: OXYCODONE/ACETAMINOPHEN (5/325) TAB PO PRN (09:49)
--- NOTE | 2017-05-29 09:52 | PDOCDIS ---
Discharge Instructions DIAGNOSIS Discharge Diagnosis 1.Sickle cell crisis and acute pain due to sickle cell crisis 2.Sickle cell anemia S/P blood transfusion 3.Dehydration 4.Chronic pain CONDITION Patient Condition: Good HOME CARE INSTRUCTIONS: Diet Instructions: Regular ACTIVITY: Activity Restrictions: No Restrictions Bathing Restrictions: Shower FOLLOW UP/APPOINTMENTS Follow-up Plan Follow up with her primary care in 1 week SCHOOL/WORK RELEASE May return to School/Work with: With Restrictions NICOL CHAVEZ MD May 29, 2017 09:52
[2017-05-29] MEDS ORDERED: FOLI-49 PO (09:54)
--- NOTE | 2017-05-29 10:08 | DS ---
Date/Time of Note Date/Time of Note DATE: 05/29/17 TIME: 10:01 Discharge Summary Admission/Discharge Info Admit Date/Time May 27, 2017 at 18:14 Discharge Date/Time 05/29/2017 Discharge Diagnosis 1.Sickle cell crisis and acute pain due to sickle cell crisis 2.Sickle cell anemia S/P blood transfusion 3.Dehydration 4.Chronic pain Patient Condition: Good Consults None. Procedures None Hx of Present Illness This is a 31-year-old -[place] female with significant medical illness of chronic pain syndrome,sickle cell disease, lupus, ITP, presents to the emergency department complaining of generalized arthralgia and muscle pain for 2 days, according to the patient, probably caused by upper respiratory symptoms. The pain is described as throbbing, /10. She has been taking Colbert without improvement of the symptoms. Denies fevers, chills, no chest pain , no abdominal pain, no urinary symptoms. Hospital Course While she was her ,she has got 2 Units of packed red blood cell transfusion due to symptomatic anemia . She also got pain management with IV Dilaudid for sickle cell crisis. Her symptom was controlled today . No precipitating factor like sepsis . No active bleeding. She has been having chronic anemia due to chronic illness with Lupus. She is medically stable to be discharged home today. She has been on Butrans which has been resumed upon discharged. Follow up with her pain specialist in 1 week since her pain was not controlled requiring hospitalization. Fair prognosis Home Meds Active Scripts Folic Acid* (Folic Acid*) 1 Mg Tablet, 1 MG PO DAILY for 90 Days, #90 TAB Prov:NICOL CHAVEZ MD 05/29/17 Norethindrone-Ethinyl Estradiol (Ortho-Novum ()) 0.035-1 Mg Tablet, 1 TAB PO DAILY, #28 TAB Prov:MARIA L CASTILLO PA-C 03/26/16 Buprenorphine (BUTRANS) 1 Each Patch.tdwk, 10 MG TD weekly, #1 BOX Prov:NOBLE CORRIGAN PA-C 03/08/16 Buprenorphine (BUTRANS) 1 Each Patch.tdwk, 1 EACH TD weekly, #1 BOX Prov:NOBLE CORRIGAN PA-C 03/08/16 Ciprofloxacin Hcl* (Ciprofloxacin Hcl*) 500 Mg Tablet, 500 MG PO BID for 7 Days , TAB Prov:CUISIA,NANETTE TINEO T. CORE ANALYSIS OPERATOR 01/26/16 Ondansetron Hcl* (Zofran* ODT) 4 mg -ODT Tab.disper, 4 MG PO Q8 Y for NAUSEA AND /OR VOMITING, #30 TAB Prov:NANETTE SAGASTUME NP 01/26/16 Hydrocodone Bit-Acetaminophen* (Colbert*) 5-325 Mg Tab, 1 TAB PO Q6 Y for PAIN, # 20 TAB Prov:NANETTE SAGASTUME NP 01/26/16 Ondansetron Hcl* (Zofran*) 4 Mg Tablet, 4 MG PO Q6H for NAUSEA AND/OR VOMITING, #30 TAB Prov:MICA VALENTINE PA-C 12/27/15 Nitrofurantoin Monohyd Macrocr* (Macrobid*) 100 Mg Capsr, 100 MG PO BID for 14 Days, CAP Prov:MICA VALENTINE PA-C 12/27/15 Hydrocodone Bit-Acetaminophen* (Colbert*) 5-325 Mg Tab, 1 TAB PO Q6 Y for PAIN, # 7 TAB Prov:MICA VALENTINE PA-C 12/27/15 Docusate Sodium* (Colace*) 100 Mg Capsule, 100 MG PO TID, #60 CAP Prov:NANETTE SAGASTUME NP 12/10/15 Ondansetron Hcl* (Zofran* ODT) 4 mg -ODT Tab.disper, 4 MG PO Q8 Y for NAUSEA AND /OR VOMITING, #30 TAB Prov:NANETTE SAGASTUME NP 12/10/15 Oxycodone Hcl-Acetaminophen* (Percocet*) 7.5-325 Mg Tablet, 1 TAB PO Q6 Y for SEVERE PAIN LEVEL 7-10, #20 TAB Prov:NANETTE SAGASTUME NP 12/10/15 Ondansetron Hcl* (Zofran* ODT) 4 mg -ODT Tab.disper, 4 MG PO Q6 Y for NAUSEA AND /OR VOMITING, #10 TAB Prov:MICA VALENTINE PA-C 11/28/15 Acetaminophen* (Tylenol*) 325 Mg Tablet, 2 TAB PO Q6 Y for PAIN AND OR ELEVATED TEMP, #20 TAB Prov:MICA VALENTINE PA-C 11/28/15 Medroxyprogesterone Acetate* (Provera*) 10 Mg Tablet, 10 MG PO DAILY for 5 Days , TAB Prov:MICA VALENTINE PA-C 11/28/15 Ferrous Sulfate* (Ferrous Sulfate*) 325 Mg Tabec, 325 MG PO BID, #60 TAB Prov:AUGUSTIN BURKETT PA-C 11/06/15 Ondansetron Hcl* (Zofran* ODT) 4 mg -ODT Tab.disper, 4 MG PO Q8 Y for NAUSEA AND /OR VOMITING, #30 TAB Prov:NANETTE SAGASTUME NP 08/27/15 Ondansetron Hcl* (Zofran* ODT) 4 mg -ODT Tab.disper, 4 MG PO Q6 Y for NAUSEA AND /OR VOMITING, #30 TAB Prov:CHON CULLEN MD 08/15/15 Levothyroxine Sodium* (Synthroid*) 150 Mcg Tab, 150 MCG PO AC BREAKFAST for 30 Days, TAB Prov:RICK VIERA MD 08/10/15 Docusate Sodium* (Colace*) 100 Mg Cap, 100 MG PO Q12H Y for CONSTIPATION for 14 Days, CAP Prov:RICK VIERA MD 08/10/15 Bisacodyl* (Dulcolax*) 5 Mg Tabec, 5 MG PO DAILY Y for CONSTIPATION for 30 Days , BOT Prov:RICK VIERA MD 08/10/15 Reported Medications Levothyroxine Sodium* (Synthroid*) Unknown Strength Tablet, PO BEFORE BREAKFAST , #30 TAB 12/10/15 Meloxicam* (Meloxicam*) 7.5 Mg Tablet, 7.5 MG PO DAILY, #30 TAB 08/07/15 Buprenorphine (Butrans) 1 Each Patch.tdwk, 1 EACH TD DAILY 08/07/15 Hydrocodone Bit-Acetaminophen* (Colbert*) 5-325 Mg Tab, 1 TAB PO Q4H Y for PAIN, TAB 08/07/15 Follow-up Plan Follow up with her primary care in 1 week Primary Care Provider Time spent on discharge: > 30 minutes Pending Labs Laboratory Tests Test 05/29/17 04:46 05/29/17 06:40 White Blood Count 8.910^3/ul (4.8-10.8) Red Blood Count 3.3310^6/ul (4.20-5.40) Hemoglobin 10.1g/dl (12.0-16.0) Hematocrit 29.7% (37.0-47.0) Mean Corpuscular Volume 89.2fl (82.0-101.0) Mean Corpuscular Hemoglobin 30.3pg (29.0-33.0) Mean Corpuscular Hemoglobin Concent 34.0g/dl (32.0-37.0) Red Cell Distribution Width 14.5% (11.5-14.5) Platelet Count 40901^3/UL (140-415) Mean Platelet Volume 12.4fl (7.4-10.4) Neutrophils % 85.3% (39.0-77.0) Lymphocytes % 9.7% (15.0-51.0) Monocytes % 3.8% (0.0-11.0) Eosinophils % 0.0% (0.0-7.0) Basophils % 0.0% (0.0-2.0) Nucleated Red Blood Cells % 0.0/100WBC (0.0-0.0) Neutrophils # 7.610^3/ul (1.6-7.5) Lymphocytes # 0.910^3/ul (0.8-2.9) Monocytes # 0.310^3/ul (0.3-0.9) Eosinophils # 0.010^3/ul (0.0-0.5) Basophils # 0.010^3/ul (0.0-0.1) Nucleated Red Blood Cells # 0.010^3/ul (0.0-0.0) Sodium Level 144mmol/L (135-144) Potassium Level 3.6mmol/L (3.5-5.1) Chloride Level 109mmol/L (97-110) Carbon Dioxide Level 24mmol/L (21-31) Anion Gap 15 (8-16) Blood Urea Nitrogen 6mg/dl (7-20) Creatinine 1.06mg/dl (0.44-1.00) Glucose Level 130mg/dl (70-220) Calcium Level 8.8mg/dl (8.4-10.2) Total Bilirubin 0.7mg/dl (0.2-1.3) Direct Bilirubin 0.00mg/dl (0.00-0.20) Indirect Bilirubin 0.7mg/dl (0-1.1) Aspartate Amino Transf (AST/SGOT) 82IU/L (15-46) Alanine Aminotransferase (ALT/SGPT) 80IU/L (13-69) Alkaline Phosphatase 51IU/L (42-121) Total Protein 8.9g/dl (6.1-8.1) Albumin 4.1g/dl (3.3-4.9) Globulin 4.80g/dl (1.3-3.2) Albumin/Globulin Ratio 0.85 Lab Scanned Report BLOOD [id number] NICOL CHAVEZ MD May 29, 2017 10:08
== END 2017-05-29 13:30 | disposition home or self-care (01) | DRG 812 ==
LOC: FTE 10:51 → MS1 18:14
PROVIDERS: ADMIT Family Medicine; ATTEND Family Medicine
PROC: 30233N1 Transfusion of Nonautologous Red Blood Cells into Peripheral Vein, Percutaneous Approach (ICD-10-PCS; principal; 2017-05-28)
DX: D57.00 Hb-SS disease with crisis, unspecified (principal); M32.9 Systemic lupus erythematosus, unspecified; G89.29 Other chronic pain; Z90.710 Acquired absence of both cervix and uterus; Z90.81 Acquired absence of spleen; Z95.828 Presence of other vascular implants and grafts; F17.210 Nicotine dependence, cigarettes, uncomplicated; E03.9 Hypothyroidism, unspecified; E86.0 Dehydration
CPT/HCPCS: 36415; 36430; 71020; 80053; 81003; 82728; 83540; 83735; 84145; 85025; 85045; 85610; 85730; 86850; 86900; 86901; 86920; 93005; 96361; 96374; 96375; 96376; J1940; J1170; J1200; J2405; J2930; J7030; J7040; P9016

== ENCOUNTER 2017-07-03 13:36 | Emergency (ER) | END 2017-07-03 17:57 | disposition home or self-care (01) ==

== ENCOUNTER 2017-08-25 19:48 | Emergency (ER) | END 2017-08-26 02:13 | disposition home or self-care (01) ==

== ENCOUNTER 2017-08-26 19:10 | Emergency (ER) | END 2017-08-27 01:18 | disposition home or self-care (01) ==

== ENCOUNTER 2017-12-05 16:38 | Emergency (ER) | END 2017-12-05 23:22 | disposition home or self-care (01) ==

== ENCOUNTER 2018-02-12 12:25 | Emergency (ER) | END 2018-02-12 16:03 | disposition home or self-care (01) ==

== ENCOUNTER 2018-04-16 12:30 | Emergency (ER) | END 2018-04-16 14:36 | disposition home or self-care (01) ==

== ENCOUNTER 2018-07-16 13:04 | Emergency (ER) | payer OTHER ==
[~2018-07-16] VITALS: Ht 157.5 cm; Wt 65.2 kg
[~2018-07-16 13:04] MED LIST changes: +ACET500C5 PO; +CEPH-443 PO; -CIPR500T4 PO; +FOLI-49 PO; +IBUP-1542 PO; +IBUP800T48 PO; -LEVO25TA59 PO; +MECL12.574 PO; -MEDR10TA2 PO; -MELO-216 PO; +MELO7.5T38 PO; -NITR-58 PO; -ONDA4TAB35 PO; -OXYC-283 PO; +SULF1TAB31 PO
[2018-07-16 13:11] VITALS: Ht 157.5 cm; Wt 65.2 kg
[2018-07-16] MEDS ORDERED: HYDROmorphONE 0.5 MG/0.5 ML SYG IV STA (13:37)
[2018-07-16] MEDS ORDERED: SOD CHLORIDE 0.9% 1,000 ML IV ONE (14:00)
[2018-07-16] MEDS ORDERED: METHYLPREDNISOLONE 125 MG INJ IV ONE (14:00)
[2018-07-16] MEDS ORDERED: ONDANSETRON 4 MG INJ IV STA (14:51)
[2018-07-16] MEDS ORDERED: HYDROmorphONE 2 MG/ML SYG IV STA (14:51)
--- NOTE | 2018-07-16 15:25 | ERD ---
ER Documentation Chief Complaint Chief Complaint Complains of generalized pain Hx of immune diease HPI This is a 32-year-old female with a past medical history of lupus, ITP, sickle cell trait, hypothyroidism, previous pulmonary embolism status post IVC filter, previous splenectomy, chronic kidney disease, fibromyalgia and chronic pain who is presenting with reported left-sided facial and leg swelling along with exacerbated pain. The patient has had these symptoms in the past. She does take narcotic medications at home, but she comes to the emergency department when she is unable to get her pain under control. The patient has chronic thrombocytopenia and is evaluated by an oncologist, Dr. Holguin, on an outpatient basis. The patient had been on Promacta in the past with improvement of her platelet count, but she stopped taking this medication due to side effects the patient does report an episode this morning of gingival bleeding, which concerned her as well. Her bleeding has since resolved. The patient denies feeling sick recently. The patient denies fever or chills. The patient has had no headache or vision changes. The patient does not endorse neck or back pain. The patient denies lightheadedness or dizziness. The patient has had no chest pain or trouble breathing. The patient denies nausea or vomiti ng. The patient denies abdominal pain. The patient denies changes to bowel movements or urination. The patient has had no focal deficits. The patient has had no weakness or numbness or tingling to the face or extremities. ROS All systems reviewed and are negative except as per history of present illness. Medications Home Meds Active Scripts Ferrous Sulfate* (Ferrous Sulfate*) 325 Mg Tabec, 325 MG PO DAILY for 30 Days, TAB Prov:TINO SANTIAGO 02/12/18 Meclizine Hcl* (Antivert*) 12.5 Mg Tab, 12.5 MG PO Q6H PRN for DIZZINESS, #20 TAB Prov:TINO SANTIAGO 02/12/18 Acetaminophen* (Tylophen*) 500 Mg Capsule, 1 CAP PO Q6H PRN for PAIN AND OR ELEVATED TEMP, #20 CAP Prov:TINO SANTIAGO F 02/12/18 Ibuprofen* (Motrin*) 800 Mg Tab, 800 MG PO Q6H PRN for PAIN AND OR ELEVATED TEMP, #30 TAB Prov:TINO SANTIAGO 02/12/18 Ondansetron Hcl* (Zofran*) 4 Mg Tablet, 4 MG PO Q8H PRN for NAUSEA AND/OR VOMITING, #30 TAB Prov:TINO SANTIAGO 02/12/18 Cephalexin* (Keflex*) 500 Mg Capsule, 500 MG PO TID for 7 Days, CAP Prov:TINO SANTIAGO F 02/12/18 Ibuprofen* (Motrin*) 600 Mg Tab, 600 MG PO Q6, #30 TAB Prov:TRISTAN VILLALOBOS PA-C 12/05/17 Sulfamethoxazole/Trimethoprim* (Bactrim Ds* Tablet) 1 Each Tablet, 1 TAB PO BID, #14 TAB Prov:OMKAR JAMA MD 08/26/17 Folic Acid* (Folic Acid*) 1 Mg Tablet, 1 MG PO DAILY for 90 Days, #90 TAB Prov:NICOL CHAVEZ MD 05/29/17 Norethindrone-Ethinyl Estradiol (Ortho-Novum ()) 0.035-1 Mg Tablet, 1 TAB PO DAILY, #28 TAB Prov:MARIA L CASTILLO PA-C 03/26/16 Buprenorphine (BUTRANS) 1 Each Patch.tdwk, 10 MG TD weekly, #1 BOX Prov:NOBLE CORRIGAN PA-C 03/08/16 Buprenorphine (BUTRANS) 1 Each Patch.tdwk, 1 EACH TD weekly, #1 BOX Prov:NOBLE CORRIGAN PA-C 03/08/16 Hydrocodone Bit-Acetaminophen* ([place]*) 5-325 Mg Tab, 1 TAB PO Q6 PRN for PAIN, #20 TAB Prov:NANETTE SAGASTUME NP 01/26/16 Ondansetron Hcl* (Zofran*) 4 Mg Tablet, 4 MG PO Q6H for NAUSEA AND/OR VOMITING, #30 TAB Prov:MICA VALENTINE PA-C 12/27/15 Docusate Sodium* (Colace*) 100 Mg Capsule, 100 MG PO TID, #60 CAP Prov:NANETTE SAGASTUME NP 12/10/15 Acetaminophen* (Tylenol*) 325 Mg Tablet, 2 TAB PO Q6 PRN for PAIN AND OR ELEVATED TEMP, #20 TAB Prov:MICA VALENTINE PA-C 11/28/15 Ferrous Sulfate* (Ferrous Sulfate*) 325 Mg Tabec, 325 MG PO BID, #60 TAB Prov:AUGUSTIN BURKETT PA-C 11/06/15 Levothyroxine Sodium* (Synthroid*) 150 Mcg Tab, 150 MCG PO AC BREAKFAST for 30 Days, TAB Prov:RICK VIERA MD 08/10/15 Bisacodyl* (Dulcolax*) 5 Mg Tabec, 5 MG PO DAILY PRN for CONSTIPATION for 30 Days, BOT Prov:RICK VIERA MD 08/10/15 Reported Medications Meloxicam* (Meloxicam*) 7.5 Mg Tablet, 7.5 MG PO DAILY, #30 TAB 08/07/15 Buprenorphine (Butrans) 1 Each Patch.tdwk, 1 EACH TD DAILY 08/07/15 Allergies Allergies: Coded Allergies: immune globulin,gamma (IgG) human (Verified Allergy, Unknown, HYPOTENSION, 02/12/18) AFTER HYPOTENSION EVENT RELATED TO CARIMUNE, PATIENT TOLERATED 4 DAYS OF CARIMUNE THERAPY AT A MAX RATE OF 50 ML/HR STARTED EVERY DAY AT 25 ML/HR THEN INCREASED TO 50 ML/HR AFTER ON HOUR WAS PREMEDICATED WITH BENADRYL 50 MG PO 30 MINUTES PRIOR INFUSION DAILY VM PMhx/Soc History of Surgery: Yes (IVC FILTER, C SEC X'S 1, SPLENECTOMY) Anesthesia Reaction: No Hx Neurological Disorder: No Hx Respiratory Disorders: Yes (Previous pulmonary embolism) Hx Cardiac Disorders: No Hx Psychiatric Problems: No Hx Miscellaneous Medical Probl: Yes (Chronic pain, LUPUS, HYPOTHYROID, fibromyalgia, sickle cell trait) Hx Alcohol Use: No Hx Substance Use: No Hx Tobacco Use: Yes Smoking Status: Former smoker FmHx Family History: No diabetes Physical Exam Vitals Vital Signs Date Temp Pulse Resp B/P (MAP) Pulse Ox O2 O2 Flow FiO2 Time Delivery Rate 07/16/18 98.8 87 20 107/68 100 13:11 (81) Physical Exam Const: No apparent distress, well-developed, well-nourished Head: Normocephalic, Atraumatic Eyes: Normal Conjunctiva. Extraocular movements intact. Pupils equal, round and reactive to light ENT: Normal External Ears, Nose and Mouth. Neck: Full range of motion. No meningismus. Resp: Clear to auscultation bilaterally, No wheezes, rales or rhonchi Cardio: Regular rate and rhythm. No murmurs, rubs or gallops Abd: Soft, non tender, non distended. Normal bowel sounds Skin: No petechiae or rashes Back: No midline tenderness. No CVA tenderness Ext: No cyanosis, or edema Neur: Awake and alert, oriented 4. Cranial nerves intact. No facial droop. Normal strength, sensation and coordination. Psych: Normal Mood and Affect Result Diagram: 07/16/18 1400 07/16/18 1400 Results 24 hrs Laboratory Tests Test 07/16/18 14:00 07/16/18 14:07 White Blood Count 5.3 10^3/ul Red Blood Count 2.82 10^6/ul Hemoglobin 8.7 g/dl Hematocrit 26.1 % Mean Corpuscular Volume 92.6 fl Mean Corpuscular Hemoglobin 30.9 pg Mean Corpuscular Hemoglobin Concent 33.3 g/dl Red Cell Distribution Width 14.2 % Platelet Count 30 10^3/UL Mean Platelet Volume 12.3 fl Immature Granulocytes % 0.200 % Neutrophils % % Segmented Neutrophils % (Manual) 46 % Band Neutrophils % (Manual) 5 % Lymphocytes % % Lymphocytes % (Manual) 31 % Reactive Lymphocytes % (Manual) 2 % Monocytes % % Monocytes % (Manual) 9 % Eosinophils % % Eosinophils % (Manual) 5 % Basophils % % Basophils % (Manual) 2 % Nucleated Red Blood Cells % 0.0 /100WBC Immature Granulocytes # 0.010 10^3/ul Neutrophils # 10^3/ul Neutrophils # (Manual) 2.4 10^3/ul Band Neutrophils # 0.2 10^3/ul Lymphocytes (Manual) 1.6 10^3/ul Lymphocytes # 10^3/ul Reactive Lymphocytes # 0.1 10^3/ul Monocytes # 10^3/ul Monocytes # (Manual) 0.4 10^3/ul Eosinophils # 10^3/ul Basophils # 10^3/ul Basophils # (Manual) 0.1 10^3/ul Nucleated Red Blood Cells # 10^3/ul Pathologist Review (Hematology) YES Platelet Estimate DECREASED Polychromasia 1+ Absolute Reticulocyte Count 0.037 X10^6 Percent Reticulocyte Count 1.3 % Prothrombin Time 12.8 Sec Prothrombin Time Ratio 1.0 INR International Normalized Ratio 0.95 Activated Partial Thromboplast Time 31.3 Sec Sodium Level 142 mmol/L Potassium Level 4.0 mmol/L Chloride Level 101 mmol/L Carbon Dioxide Level 26 mmol/L Anion Gap 15 Blood Urea Nitrogen 8 mg/dl Creatinine 1.19 mg/dl Est Glomerular Filtrat Rate mL/min > 60 mL/min Glucose Level 102 mg/dl Calcium Level 10.0 mg/dl Total Bilirubin 0.2 mg/dl Direct Bilirubin 0.00 mg/dl Indirect Bilirubin 0.2 mg/dl Aspartate Amino Transf (AST/SGOT) 49 IU/L Alanine Aminotransferase (ALT/SGPT) 24 IU/L Alkaline Phosphatase 58 IU/L Total Protein 11.1 g/dl Albumin 5.2 g/dl Globulin 5.90 g/dl Albumin/Globulin Ratio 0.88 POC Beta HCG, Qualitative NEGATIVE Current Medications Medications Dose Sig/Navi Start Time Status Last (Trade) Ordered Route PRN Stop Time Admin Dose Reason Admin Sodium 1,000 ml @ Q1H ONCE 07/16/18 DC 07/16/18 Chloride 1,000 mls/hr IV 14:00 14:05 07/16/18 14:59 1 mg ONCE STAT 07/16/18 DC 07/16/18 Hydromorphone IV 13:37 14:05 HCl 07/16/18 13:42 (Dilaudid) 125 mg ONCE ONCE 07/16/18 DC 07/16/18 Methylprednis IV 14:00 14:05 olone Sodium 07/16/18 14:01 Succinate (Solu-Medrol) Ondansetron 4 mg ONCE STAT 07/16/18 DC 07/16/18 HCl (Zofran IV 14:51 15:02 Inj) 07/16/18 14:56 1 mg ONCE STAT 07/16/18 DC 07/16/18 Hydromorphone IV 14:51 15:02 HCl 07/16/18 14:56 (Dilaudid) Procedures/MDM MDM The patient's presentation warrants further investigation. Previous medical records, if available, were reviewed. LABS The patient's laboratory testing was obtained and reviewed. No emergent treat ment was required unless described below. CBC: Significant thrombocytopenia, but no evidence of active bleeding, appears to be at baseline compared most recent studies. Normocytic anemia, chronic, d oes not require emergent transfusion. No leukocytosis or concerning bandemia. CMP: No E/o severe acidosis or alkalosis or liver disease or diabetic ketoacidosis. Mildly elevated creatinine in line with previous studies, indicating chronic kidney disease. PT/INR: No E/o significant coagulopathy TREATMENT/DISPOSITION The patient's presenting with exacerbated chronic pains. This was controlled w hillary Monte in the emergency department. The patient has a prescription for narcotic medications at home that she is taking compliantly. The patient understands that I am not able to refill this medication. She will follow up with her outpatient physicians regarding refills as needed. I have very low suspicion for narcotic abuse. I do not feel the patient requires a prescription for Narcan. The patient does have chronic anemia that does not require emergent treatment. The patient is also thrombocytopenic, at similar levels to her previous emergency department visit in March of last year. I was able to speak to the patient's oncology team. I spoke with Dr. Brizuela, who is the partner of the patient's oncologist, Dr. Holguin. He was reassured by the stability of the platelet count. As the patient is not actively bleeding at this time, no emergent treatment is required. In addition to narcotic medication in the emergency department, the patient was also given Solu-Medrol. The patient will be discharged with a prescription for a short course of steroids. Upon reevaluation of the patient, symptoms have improved. No emergent diagnoses were identified. At this time, I feel that the patient stable for discharge. The patient was instructed to follow-up with a primary care physician in 1-3 days. The patient will be given strict precautions with which to return to the emergency department. Prescriptions: Prednisone Disclaimer: Inadvertent spelling and grammatical errors are likely due to EHR/dictation software use and do not reflect on the overall quality of patient care. Note that the electronic time recorded on this note does not necessarily reflect the actual time of the patient encounter. Departure Diagnosis: Primary Impression: Chronic pain Chronic pain type: chronic pain syndrome Qualified Codes: G89.4 - Chronic pain syndrome Additional Impressions: Chronic ITP (idiopathic thrombocytopenia) Thrombocytopenia Chronic anemia Chronic kidney disease Chronic kidney disease stage: unspecified stage Qualified Codes: N18.9 - Chronic kidney disease, unspecified Condition: SIS Alba MD Jul 16, 2018 15:25
[2018-07-16] MEDS ORDERED: PRED20TA PO (15:26)
[2018-07-16] MEDS ORDERED: ONDA4TAB8 PO (15:32)
[2018-07-16 15:50] VITALS: BP 110/76; PULSE 65; RESP 19
== END 2018-07-16 15:52 | disposition home or self-care (01) ==
LOC: E/R 13:04
DX: G89.4 Chronic pain syndrome (principal); D69.3 Immune thrombocytopenic purpura; D64.9 Anemia, unspecified; N18.9 Chronic kidney disease, unspecified; E03.9 Hypothyroidism, unspecified; Z87.891 Personal history of nicotine dependence
CPT/HCPCS: 80053; 81025; 85025; 85045; 85610; 85730; 96374; 96375; 96376; J1170; J2405; J2930; J7030; Z7502

== ENCOUNTER 2018-09-17 12:41 | Emergency (ER) | payer OTHER ==
[~2018-09-17] VITALS: Ht 167.6 cm; Wt 65.3 kg
[~2018-09-17 12:41] MED LIST changes: +PRED20TA PO
[2018-09-17 12:53] VITALS: Ht 167.6 cm; Wt 65.3 kg
[2018-09-17] MEDS ORDERED: HYDROmorphONE 1 MG/ML SYG IV STA ×2 (14:42→17:12)
[2018-09-17] MEDS ORDERED: ONDANSETRON 4 MG INJ IV STA ×2 (14:42→17:12)
[2018-09-17] MEDS ORDERED: SOD CHLORIDE 0.9% 1,000 ML IV STA (14:42)
[2018-09-17] MEDS ORDERED: DIPHENHYDRAMINE 50 MG INJ IV ONE ×2 (15:00→17:30)
[2018-09-17] MEDS ORDERED: ARTIFICIAL TEARS 15 ML OPH BOTH EYES ONE (15:00)
[2018-09-17] MEDS ORDERED: TETRACAINE 0.5% 4 ML OPH BOTH EYES ONE (15:00)
[2018-09-17] MEDS ORDERED: ONDA4TAB13 PO (15:22)
[2018-09-17] MEDS ORDERED: OXYC-431 PO (15:23)
[2018-09-17] MEDS ORDERED: LEVO200T6 PO (15:24)
[2018-09-17] MEDS ORDERED: BUPR1PAT10 TD (15:25)
--- NOTE | 2018-09-17 17:31 | ERD ---
ER Documentation Chief Complaint Chief Complaint bilat eyes burn/ water/ itch x1d; vision WNL. no meds taken. HPI This is a very pleasant 32-year-old female with past medical history of lupus, severe anemia, fibromyalgia, sickle cell disease who indicates she is having bilateral eye pain. She states it is a burning-like sensation with no changes in vision. She believes this occurred after being in [place] yesterday and having multiple dust exposure. She does not wear glasses or contacts. She indicates that several hours prior to arrival she also developed diffuse myalgias of her upper and lower extremities. She states it is a dull achy sensation. She indicates that she has had similar episodes when she develops vesicles or lupus flare. She said no fevers or shaking or chills. She denies any chest pain but she has no shortness of breath at rest or exertion ROS All systems reviewed and are negative except as per history of present illness. Medications Home Meds Reported Medications Buprenorphine (Butrans) 1 Each Patch.tdwk, 1 EACH TD Q7D 09/17/18 Levothyroxine Sodium* (Levothyroxine Sodium*) 200 Mcg Tablet, 200 MCG PO BEFORE BREAKFAST, #30 TAB 09/17/18 Oxycodone HCl/Acetaminophen (Oxycodone-Acetaminophen 10-325) 1 Each Tablet, 1 EACH PO TID, TAB 09/17/18 Ondansetron Hcl* (Zofran*) 4 Mg Tab, 4 MG PO Q6H PRN for NAUSEA AND OR VOMITING, TAB 09/17/18 Discontinued Reported Medications Meloxicam* (Meloxicam*) 7.5 Mg Tablet, 7.5 MG PO DAILY, #30 TAB 08/07/15 Buprenorphine (Butrans) 1 Each Patch.tdwk, 1 EACH TD DAILY 08/07/15 Discontinued Scripts Ondansetron Hcl* (Zofran*) 4 Mg Tablet, 4 MG PO Q6H for NAUSEA AND/OR VOMITING, #30 TAB Prov:SIS MURRY MD 07/16/18 Prednisone* (Prednisone*) 20 Mg Tab, 40 MG PO DAILY for 4 Days, TAB Prov:SIS MURRY MD 07/16/18 Ferrous Sulfate* (Ferrous Sulfate*) 325 Mg Tabec, 325 MG PO DAILY for 30 Days, TAB Prov:TINO SANTIAGO 02/12/18 Meclizine Hcl* (Antivert*) 12.5 Mg Tab, 12.5 MG PO Q6H PRN for DIZZINESS, #20 TAB Prov:TINO SANTIAGO 02/12/18 Acetaminophen* (Tylophen*) 500 Mg Capsule, 1 CAP PO Q6H PRN for PAIN AND OR ELEVATED TEMP, #20 CAP Prov:PASILATINO PEDRAZA 02/12/18 Ibuprofen* (Motrin*) 800 Mg Tab, 800 MG PO Q6H PRN for PAIN AND OR ELEVATED TEMP, #30 TAB Prov:KISHAILABANTINO 02/12/18 Ondansetron Hcl* (Zofran*) 4 Mg Tablet, 4 MG PO Q8H PRN for NAUSEA AND/OR VOMITING, #30 TAB Prov:TINO SANTIAGO 02/12/18 Cephalexin* (Keflex*) 500 Mg Capsule, 500 MG PO TID for 7 Days, CAP Prov:TINO SANTIAGO 02/12/18 Ibuprofen* (Motrin*) 600 Mg Tab, 600 MG PO Q6, #30 TAB Prov:TRISTAN VILLALOBOS PA-C 12/05/17 Sulfamethoxazole/Trimethoprim* (Bactrim Ds* Tablet) 1 Each Tablet, 1 TAB PO BID, #14 TAB Prov:OMKAR JAMA MD 08/26/17 Folic Acid* (Folic Acid*) 1 Mg Tablet, 1 MG PO DAILY for 90 Days, #90 TAB Prov:NICOL CHAVEZ MD 05/29/17 Norethindrone-Ethinyl Estradiol (Ortho-Novum ()) 0.035-1 Mg Tablet, 1 TAB PO DAILY, #28 TAB Prov:MARIA L CASTILLO PA-C 03/26/16 Buprenorphine (BUTRANS) 1 Each Patch.tdwk, 10 MG TD weekly, #1 BOX Prov:NOBLE CORRIGAN PA-C 03/08/16 Buprenorphine (BUTRANS) 1 Each Patch.tdwk, 1 EACH TD weekly, #1 BOX Prov:NOBLE CORRIGAN PA-C 03/08/16 Hydrocodone Bit-Acetaminophen* ([place]*) 5-325 Mg Tab, 1 TAB PO Q6 PRN for PAIN, #20 TAB Prov:NANETTE SAGASTUME NP 01/26/16 Ondansetron Hcl* (Zofran*) 4 Mg Tablet, 4 MG PO Q6H for NAUSEA AND/OR VOMITING, #30 TAB Prov:MICA VALENTINE PA-C 12/27/15 Docusate Sodium* (Colace*) 100 Mg Capsule, 100 MG PO TID, #60 CAP Prov:NANETTE SAGASTUME NP 12/10/15 Acetaminophen* (Tylenol*) 325 Mg Tablet, 2 TAB PO Q6 PRN for PAIN AND OR ELEVATED TEMP, #20 TAB Prov:MICA VALENTINE PA-C 11/28/15 Ferrous Sulfate* (Ferrous Sulfate*) 325 Mg Tabec, 325 MG PO BID, #60 TAB Prov:AUGUSTIN BURKETT PA-C 11/06/15 Levothyroxine Sodium* (Synthroid*) 150 Mcg Tab, 150 MCG PO AC BREAKFAST for 30 Days, TAB Prov:RICK VIERA MD 08/10/15 Bisacodyl* (Dulcolax*) 5 Mg Tabec, 5 MG PO DAILY PRN for CONSTIPATION for 30 Days, BOT Prov:RICK VIERA MD 08/10/15 Allergies Allergies: Coded Allergies: immune globulin,gamma (IgG) human (Verified Allergy, Unknown, HYPOTENSION, 09/17/18) AFTER HYPOTENSION EVENT RELATED TO CARIMUNE, PATIENT TOLERATED 4 DAYS OF CARIMUNE THERAPY AT A MAX RATE OF 50 ML/HR STARTED EVERY DAY AT 25 ML/HR THEN INCREASED TO 50 ML/HR AFTER ON HOUR WAS PREMEDICATED WITH BENADRYL 50 MG PO 30 MINUTES PRIOR INFUSION DAILY VM PMhx/Soc History of Surgery: Yes (IVC FILTER (abd), C SEC X'S 1, SPLENECTOMY) Anesthesia Reaction: No Hx Neurological Disorder: No Hx Respiratory Disorders: Yes (Previous pulmonary embolism) Hx Cardiac Disorders: No Hx Miscellaneous Medical Probl: Yes (Chronic pain, LUPUS, HYPOTHYROID, fibromyalgia, sickle cell trait) Hx Alcohol Use: No Hx Substance Use: No Hx Tobacco Use: No Smoking Status: Former smoker Physical Exam Vitals Vital Signs Date Temp Pulse Resp B/P (MAP) Pulse Ox O2 O2 Flow FiO2 Time Delivery Rate 09/17/18 98.6 66 16 130/79 99 12:53 (96) Physical Exam Constitutional:Well-developed. Well-nourished. HEENT:Normocephalic. Atraumatic.Pupils were equal round reactive to light. Moist mucous membranes.No tonsillar exudates. Conjunctival injection bilaterally. Fluorescein stain negative for corneal abrasions. Visual acuity 20/20 bilaterally. Neck: No nuchal rigidity. No lymphadenopathy. No posterior cervical spine tenderness or step-offs. Respiratory: Not using accessory muscles of respiration.Lungs were clear to auscultation bilaterally. No rhonchi. No rales. No wheezing. Cardiovascular: Regular rate regular rhythm.No murmurs. No rubs were appreciated.S1, S2 normal. Distal pulses are palpable 2+ bilaterally. GI: Abdomen was soft. Nontender. Non Distended. No pulsatile abdominal masses or bruits. No rebound. No guarding. Bowel sounds were present and normal. Muscle skeletal: Full range of motion of both the upper and lower extremities bilaterally.Normal muscle tone.No assymetrical calf tenderness or swelling. Skin: No petechia, no purpura. No lesions on the palms or the soles of the feet. No maculopapular rash. NEURO: Patient was alert, awake, orientated x3.No facial droop. Gait observed and normal with no ataxia.Speech had regular rate and rhythm. No focal neurological deficits. Result Diagram: 09/17/18 1438 09/17/18 1438 Results 24 hrs Laboratory Tests Test 09/17/18 14:38 White Blood Count 5.3 10^3/ul Red Blood Count 2.66 10^6/ul Hemoglobin 8.3 g/dl Hematocrit 25.4 % Mean Corpuscular Volume 95.5 fl Mean Corpuscular Hemoglobin 31.2 pg Mean Corpuscular Hemoglobin Concent 32.7 g/dl Red Cell Distribution Width 12.9 % Platelet Count 27 10^3/UL Mean Platelet Volume 12.2 fl Immature Granulocytes % 0.200 % Neutrophils % % Segmented Neutrophils % (Manual) 42 % Lymphocytes % % Lymphocytes % (Manual) 36 % Monocytes % % Monocytes % (Manual) 7 % Eosinophils % % Eosinophils % (Manual) 14 % Basophils % % Basophils % (Manual) 1 % Nucleated Red Blood Cells % 1 % Immature Granulocytes # 0.010 10^3/ul Neutrophils # 10^3/ul Lymphocytes (Manual) 1.9 10^3/ul Lymphocytes # 10^3/ul Monocytes # 10^3/ul Monocytes # (Manual) 0.3 10^3/ul Eosinophils # 10^3/ul Basophils # 10^3/ul Basophils # (Manual) 0.0 10^3/ul Nucleated Red Blood Cells # 10^3/ul Platelet Estimate SIG DECREASED Polychromasia 1+ Hypochromasia 1+ Absolute Reticulocyte Count 0.043 X10^6 Percent Reticulocyte Count 1.6 % Prothrombin Time 13.3 Sec Prothrombin Time Ratio 1.0 INR International Normalized Ratio 1.00 Activated Partial Thromboplast Time 32.2 Sec Sodium Level 143 mmol/L Potassium Level 4.1 mmol/L Chloride Level 103 mmol/L Carbon Dioxide Level 31 mmol/L Anion Gap 9 Blood Urea Nitrogen 10 mg/dl Creatinine 1.06 mg/dl Est Glomerular Filtrat Rate mL/min > 60 mL/min Glucose Level 78 mg/dl Calcium Level 9.4 mg/dl Total Bilirubin 0.2 mg/dl Direct Bilirubin 0.00 mg/dl Indirect Bilirubin 0.2 mg/dl Aspartate Amino Transf (AST/SGOT) 34 IU/L Alanine Aminotransferase (ALT/SGPT) 29 IU/L Alkaline Phosphatase 53 IU/L Total Protein 9.7 g/dl Albumin 4.7 g/dl Globulin 5.00 g/dl Albumin/Globulin Ratio 0.94 Serum HCG, Qualitative NEGATIVE Current Medications Medications Dose Sig/Navi Start Time Status Last (Trade) Ordered Route PRN Stop Time Admin Dose Reason Admin Sodium 1,000 ml @ Q1H STAT 09/17/18 DC 09/17/18 Chloride 1,000 mls/hr IV 14:42 15:12 09/17/18 15:41 1 mg ONCE STAT 09/17/18 DC 09/17/18 Hydromorphone IV 14:42 14:52 HCl 09/17/18 14:45 (Dilaudid) Ondansetron 4 mg ONCE STAT 09/17/18 DC 09/17/18 HCl (Zofran IV 14:42 14:52 Inj) 09/17/18 14:45 25 mg ONCE ONCE 09/17/18 DC 09/17/18 Diphenhydrami IV 15:00 14:52 ne HCl 09/17/18 15:01 (Benadryl) Tetracaine 1 drop ONCE ONCE 09/17/18 DC HCl BOTH EYES 15:00 (Tetracaine 09/17/18 15:01 0.5% Steri-Unit Jeanette) Eye 1 drop ONCE ONCE 09/17/18 DC 09/17/18 Lubricant BOTH EYES 15:00 15:12 (Artificial 09/17/18 15:01 Tears Oph) 1 mg ONCE STAT 09/17/18 DC Hydromorphone IV 17:12 HCl 09/17/18 17:15 (Dilaudid) Ondansetron 4 mg ONCE STAT 09/17/18 DC HCl (Zofran IV 17:12 Inj) 09/17/18 17:15 25 mg ONCE ONCE 09/17/18 DC Diphenhydrami IV 17:30 ne HCl 09/17/18 17:31 (Benadryl) Procedures/MDM This is a very pleasant 32-year-old female that presented to the emergency department with diffuse myalgias and physical exam findings that were likely suggestive of a lupus flareup. The patient also had bilateral conjunctival injection which appeared to be contact conjunctivitis. There is no evidence of corneal ulcer or abrasion. Tetracaine had been utilized to assess in the ocular examination. She was given Lacri-Lube ophthalmic ointments and states she had significant improvement of her symptoms. The patient has severe thrombocytopenia. The patient's platelet count was 27,000. However I reviewed the records and the patient's baseline is 29,000. Observation Note: Time: 4 hours Family Hx: No Hypertension Evaluation: Multiple exams showed improving symptoms and no evidence of sepsis or severe life-threatening etiology. The patient has a known history of ITP. The patient's pain had resolved and she did feel comfortable being discharged home. The patient was discharged home in fair condition. They were instructed to return to the emergency department at any time if there was any worsening of their condition. The patient stated they would follow up with their PCP in the next 24-48 hours to initiate a suitable medication regimen under the care of their PCP as well as to allow their PCP to monitor any drug reactions. The patient was discharged home with prescriptions after they gave informed consent to the new medication. They were also fully informed by myself on the adverse effects and adverse drug interactions in order to provide adequate safeguards to prevent possible adverse reactions to medications. Departure Diagnosis: Primary Impression: Corneal irritation of both eyes Additional Impressions: Thrombocytopenia SLE exacerbation Condition: GERARD Tobias MD Sep 17, 2018 17:31
[2018-09-17 18:50] VITALS: BP 118/72; PULSE 81; RESP 16
== END 2018-09-17 19:00 | disposition home or self-care (01) ==
LOC: FTE 12:41 → E/R 19:00
DX: H18.893 Other specified disorders of cornea, bilateral (principal); D69.6 Thrombocytopenia, unspecified; M32.9 Systemic lupus erythematosus, unspecified; Z87.891 Personal history of nicotine dependence
CPT/HCPCS: 36415; 80053; 84703; 85025; 85045; 85610; 85730; 96374; 96375; 96376; J1170; J1200; J2405; J7030; Z7502; Z7610

== ENCOUNTER 2018-11-08 11:24 | Emergency (ER) | payer OTHER ==
[~2018-11-08] VITALS: Ht 165.1 cm; Wt 64.5 kg
[~2018-11-08 11:24] MED LIST changes: -ACET325T33 PO; -ACET500C5 PO; -BISA-57 PO; -BUPR1PAT TD; -CEPH-443 PO; -DOCU-144 PO; -FER325 PO; -FOLI-49 PO; -HYDR-3498 PO; -IBUP-1542 PO; -IBUP800T48 PO; -LEVO150T87 PO; +LEVO200T6 PO; -MECL12.574 PO; -MELO7.5T38 PO; +ONDA4TAB13 PO; -ONDA4TAB8 PO; -ORTNOV PO; +OXYC-431 PO; -PRED20TA PO; -SULF1TAB31 PO
[2018-11-08 11:46] VITALS: Ht 165.1 cm; Wt 64.5 kg
[2018-11-08] MEDS ORDERED: ONDANSETRON 4 MG INJ IV STA (12:26)
[2018-11-08] MEDS ORDERED: HYDROmorphONE 1 MG/ML SYG IV STA (12:26)
[2018-11-08] MEDS ORDERED: SOD CHLORIDE 0.9% 1,000 ML IV STA (12:26)
[2018-11-08] MEDS ORDERED: CHOL100062 PO (12:57)
[2018-11-08] MEDS ORDERED: DIPHENHYDRAMINE 50 MG INJ IV ONE (13:00)
[2018-11-08] MEDS ORDERED: HYDROmorphONE 2 MG/ML SYG IV STA (13:15)
--- NOTE | 2018-11-08 13:17 | ERD ---
ER Documentation Chief Complaint Chief Complaint c/o joint pain, mostly on her left side. Hx: Sickle cell disease HPI Patient is a 33-year-old female with sickle cell disease who presents with a "sickle cell crisis". The symptoms started yesterday and have been worsening. She has left-sided leg pain and whole body pain consistent with her sickle cell disease. She tried pain medication and CBD oil. She said that it is a stabbing type pain. Upon review of old medical records the patient has multiple visits to the ER for various complaints. She does have a care plan which says treatment will be left up to the provider judgment. She does have a primary doctor. ROS All systems reviewed and are negative except as per history of present illness. Medications Home Meds Reported Medications Cholecalciferol* (Vitamin D3*) 1,000 Unit Tablet, 1000 UNIT PO DAILY, TAB 11/08/18 Buprenorphine (Butrans) 1 Each Patch.tdwk, 1 EACH TD Q FRI 09/17/18 Levothyroxine Sodium* (Levothyroxine Sodium*) 200 Mcg Tablet, 200 MCG PO BEFORE BREAKFAST, #30 TAB 09/17/18 Oxycodone HCl/Acetaminophen (Oxycodone-Acetaminophen 10-325) 1 Each Tablet, 1 EACH PO TID, TAB 09/17/18 Ondansetron Hcl* (Zofran*) 4 Mg Tab, 4 MG PO Q6H PRN for NAUSEA AND OR VOMITING, TAB 09/17/18 Allergies Allergies: Coded Allergies: immune globulin,gamma (IgG) human (Verified Allergy, Unknown, HYPOTENSION, 11/08/18) AFTER HYPOTENSION EVENT RELATED TO CARIMUNE, PATIENT TOLERATED 4 DAYS OF CARIMUNE THERAPY AT A MAX RATE OF 50 ML/HR STARTED EVERY DAY AT 25 ML/HR THEN INCREASED TO 50 ML/HR AFTER ON HOUR WAS PREMEDICATED WITH BENADRYL 50 MG PO 30 MINUTES PRIOR INFUSION DAILY VM PMhx/Soc History of Surgery: Yes (IVC FILTER (abd), C SEC X'S 1, SPLENECTOMY) Anesthesia Reaction: No Hx Neurological Disorder: No Hx Respiratory Disorders: Yes (Previous pulmonary embolism) Hx Cardiac Disorders: No Hx Miscellaneous Medical Probl: Yes (Chronic pain, LUPUS, HYPOTHYROID, fibromyalgia, sickle cell trait) Hx Alcohol Use: No Hx Substance Use: No Hx Tobacco Use: No Smoking Status: Former smoker FmHx Family History: No diabetes Physical Exam Vitals Vital Signs Date Temp Pulse Resp B/P (MAP) Pulse Ox O2 O2 Flow FiO2 Time Delivery Rate 11/08/18 79 20 120/78 99 Room Air 14:31 (92) 11/08/18 Nasal 2 12:51 Cannula 11/08/18 99.1 71 20 138/82 100 11:46 (100) Physical Exam Const: Mild distress secondary to pain Head: Atraumatic Eyes: Normal Conjunctiva ENT: Normal External Ears, Nose and Mouth. Neck: Full range of motion. No meningismus. Resp: Clear to auscultation bilaterally Cardio: Regular rate and rhythm, no murmurs Abd: Soft, non tender, non distended. Normal bowel sounds Skin: No petechiae or rashes Back: No midline or flank tenderness Ext: No cyanosis, or edema Neur: Awake and alert Psych: Normal Mood and Affect Result Diagram: 11/08/18 1246 11/08/18 1244 Results 24 hrs Laboratory Tests Test 11/08/18 12:44 11/08/18 12:46 11/08/18 12:54 Urine Color YELLOW Urine Clarity CLOUDY Urine pH 6.0 Urine Specific [place] 1.014 Urine Ketones NEGATIVE mg/dL Urine Nitrite NEGATIVE mg/dL Urine Bilirubin NEGATIVE mg/dL Urine Urobilinogen 1+ mg/dL Urine Leukocyte Esterase NEGATIVE Ramiro/ul Urine Microscopic RBC 0 /HPF Urine Microscopic WBC 2 /HPF Urine Squamous Epithelial Cells MODERATE /HPF Urine Bacteria FEW /HPF Urine Mucus FEW /HPF Urine Hemoglobin NEGATIVE mg/dL Urine Glucose NEGATIVE mg/dL Urine Total Protein NEGATIVE mg/dl Sodium Level 142 mmol/L Potassium Level 3.8 mmol/L Chloride Level 107 mmol/L Carbon Dioxide Level 28 mmol/L Anion Gap 7 Blood Urea Nitrogen 7 mg/dl Creatinine 0.88 mg/dl Est Glomerular Filtrat > 60 mL/min Rate mL/min Glucose Level 64 mg/dl Calcium Level 9.3 mg/dl White Blood Count 7.5 10^3/ul Red Blood Count 3.14 10^6/ul Hemoglobin 9.9 g/dl Hematocrit 28.6 % Mean Corpuscular Volume 91.1 fl Mean Corpuscular Hemoglobin 31.5 pg Mean Corpuscular 34.6 g/dl Hemoglobin Concent Red Cell Distribution Width 13.2 % Platelet Count 47 10^3/UL Mean Platelet Volume fl Immature Granulocytes % 0.700 % Neutrophils % % Lymphocytes % % Monocytes % % Eosinophils % % Basophils % % Nucleated Red Blood Cells % 0.0 /100WBC Immature Granulocytes # 0.050 10^3/ul Neutrophils # 10^3/ul Lymphocytes # 10^3/ul Monocytes # 10^3/ul Eosinophils # 10^3/ul Basophils # 10^3/ul Nucleated Red Blood Cells # 10^3/ul POC Beta HCG, Qualitative NEGATIVE Current Medications Medications Dose Sig/Navi Start Time Status Last (Trade) Ordered Route PRN Stop Time Admin Dose Reason Admin Sodium 1,000 ml @ Q1H STAT 11/08/18 DC 11/08/18 Chloride 1,000 mls/hr IV 12:26 12:54 11/08/18 13:25 1 mg ONCE STAT 11/08/18 DC 11/08/18 Hydromorphone IV 12:26 12:54 HCl 11/08/18 12:27 (Dilaudid) Ondansetron 4 mg ONCE STAT 11/08/18 DC 11/08/18 HCl (Zofran IV 12:26 12:54 Inj) 11/08/18 12:27 25 mg ONCE ONCE 11/08/18 DC 11/08/18 Diphenhydrami IV 13:00 12:54 ne HCl 11/08/18 13:01 (Benadryl) 1 mg ONCE STAT 11/08/18 DC 11/08/18 Hydromorphone IV 13:15 13:27 HCl 11/08/18 13:16 (Dilaudid) Procedures/MDM EKG read by me: Rate/Rhythm: Regular rate and rhythm at a rate of 60 Intervals: Normal Impression: No evidence of ischemia or arrhythmia Patient is a 33-year-old female who presents with sickle cell pain. Her hemoglobin is 9 at this time and I believe outpatient management is appropriate. She does not need transfusion. She was given Dilaudid and Benadryl for pain. The patient will be discharged and can return for any worsening symptoms. Departure Diagnosis: Primary Impression: Sickle cell crisis Condition: Fair Patient Instructions: Sickle Cell Pain Crisis Referrals: Your terminal computer operator Additional Instructions: Call your primary care doctor TOMORROW for an appointment during the next 1-2 days.See the doctor sooner or return here if your condition worsens before your appointment time. CHON CULLEN MD November 08, 2018 13:17
[2018-11-08 14:31] VITALS: BP 120/78; PULSE 79; RESP 20
== END 2018-11-08 14:33 | disposition home or self-care (01) ==
LOC: E/R 11:24
DX: D57.00 Hb-SS disease with crisis, unspecified (principal); E03.9 Hypothyroidism, unspecified; Z87.891 Personal history of nicotine dependence
CPT/HCPCS: 36415; 80048; 81001; 81025; 85025; 93005; 96374; 96375; 96376; J1170; J2405; J7030; Z7502

== ENCOUNTER 2018-12-13 12:51 | Inpatient (IN) | payer OTHER ==
[~2018-12-13] VITALS: Ht 165.1 cm; Wt 65.0 kg
[~2018-12-13 12:51] MED LIST changes: +CHOL100062 PO
[2018-12-13] MEDS ORDERED: SOD CHLORIDE 0.9% 1,000 ML IV STA (15:31)
[2018-12-13] MEDS ORDERED: ONDANSETRON 4 MG INJ IV STA ×2 (15:53→17:41)
[2018-12-13] MEDS ORDERED: HYDROmorphONE 1 MG/ML SYG IV STA ×2 (15:53→17:13)
[2018-12-13] MEDS ORDERED: DIPHENHYDRAMINE 50 MG INJ IV STA (15:53)
[2018-12-13] MEDS ORDERED: BISACODYL 10 MG SUPP PR PRN (17:30)
[2018-12-13] MEDS ORDERED: NACL 0.9% 3 ML SYG IV SCH (17:30)
[2018-12-13] MEDS ORDERED: DOCUSATE SODIUM 100 MG CAP PO PRN (17:30)
[2018-12-13] MEDS ORDERED: MAGNESIUM HYDROXIDE 30ML CUP PO PRN (17:30)
[2018-12-13] MEDS ORDERED: ACETAMINOPHEN 325 MG TAB PO PRN ×2 (17:30)
[2018-12-13] MEDS ORDERED: ONDANSETRON 4 MG INJ IV PRN (17:30)
--- NOTE | 2018-12-13 17:40 | HP ---
Date/Time of Note Date/Time of Note DATE: 12/13/18 TIME: 17:37 Assessment/Plan VTE Prophylaxis SCD applied (from Nsg): No SCD contraindicated: other Pharmacological prophylaxis: NA/contraindicated Pharm contraindication: thrombocytopenia Lines/Catheters IV [facility]ter [facility]from [facility] Saline [facility] Assessment/Plan Assessment/Plan 33-year-old female with: 1. Acute on chronic thrombocytopenia, known ITP. Usually platelet levels in the 30s to upper 20s at least over the past few months, presented with platelets of 3 and episodes of gum bleeding Patient to receive 1 unit of platelet transfusion. Discussed with hematology, agreeable with platelet transfusion, also will initiate IVIG 1 g/kg daily x2 doses, discussed with pharmacy and ordered to start today, patient also may need steroids, this will be determined in a.m. after she is seen by hematology. Dr. Oro has been consulted Monitoring telemetry during IVIG infusion, patient had a history of previous hypotensive episode during transfusion, discussed with pharmacy, her rate of transfusion will be adjusted and also she is to receive Benadryl 50 mg p.o. at least 30 minutes prior to transfusion. Monitor CBC 2. Sickle cell, known chronic anemia, hemoglobin stable. 3. Chronic pain, secondary to sickle cell, usually on Sandy Level or Percocet as needed, will order Dilaudid temporarily while inpatient for severe pain. 4. Hypothyroidism: Continue Synthroid, check TFTs in a.m. 5. Systemic lupus erythematous, per history, will clarify which cruise staff member is following patient as an outpatient. Prophylaxis: SCDs and pharmacological prophylaxis contraindicated currently given severe thrombocytopenia and high risk of bleeding and very easy bruising. Disposition: Admit to telemetry, platelet transfusion today, IVIG to be initiated also, hematology consult in a.m. Result Diagram: 12/13/18 1541 12/13/18 1540 Results 24hrs Laboratory Tests Test 12/13/18 15:40 12/13/18 15:41 12/13/18 15:42 Sodium Level 143 Potassium Level 3.9 Chloride Level 103 Carbon Dioxide Level 30 Anion Gap 10 Blood Urea Nitrogen 8 Creatinine 0.98 Est Glomerular Filtrat Rate mL/min > 60 Glucose Level 94 Calcium Level 9.7 Total Bilirubin 0.5 Direct Bilirubin 0.00 Indirect Bilirubin 0.5 Aspartate Amino Transf (AST/SGOT) 38 Alanine Aminotransferase (ALT/SGPT) 14 Alkaline Phosphatase 69 Total Protein 10.6 H Albumin 4.9 Globulin 5.70 H Albumin/Globulin Ratio 0.85 White Blood Count 6.5 Red Blood Count 3.60 L Hemoglobin 10.6 L Hematocrit 31.9 L Mean Corpuscular Volume 88.6 Mean Corpuscular Hemoglobin 29.4 Mean Corpuscular Hemoglobin Concent 33.2 Red Cell Distribution Width 13.5 Platelet Count 3 #*L Mean Platelet Volume Immature Granulocytes % 0.300 Neutrophils % Segmented Neutrophils % (Manual) 65 Lymphocytes % Lymphocytes % (Manual) 23 Monocytes % Monocytes % (Manual) 9 Eosinophils % Eosinophils % (Manual) 2 Basophils % Basophils % (Manual) 1 Nucleated Red Blood Cells % 0.0 Immature Granulocytes # 0.020 Neutrophils # Lymphocytes (Manual) 1.4 Lymphocytes # Monocytes # Monocytes # (Manual) 0.5 Eosinophils # Basophils # Basophils # (Manual) 0.0 Nucleated Red Blood Cells # Pathologist Review (Hematology) YES Anisocytosis 1+ Macrocytosis 1+ Absolute Reticulocyte Count 0.054 Percent Reticulocyte Count 1.5 Prothrombin Time 13.4 Prothrombin Time Ratio 1.0 INR International Normalized Ratio 1.01 Activated Partial Thromboplast Time 29.7 HPI/ROS Admit Date/Time Admit Date/Time Hx of Present Illness Chief complaint: Bleeding gums, known history of thrombocytopenia and ITP History of presenting illness: This is a 33-year-old female with a known history of sickle cell, systemic lupus erythematous, ITP, lately platelet count stable in the upper 30s/upper 20s, chronic pain, hypothyroidism who presented the emergency department sent over by her primary physician with complaints of bleeding gum for 2 days, given her known history of ITP, she was sent to the emergency department for evaluation. Patient denies any recent viral infection as far she knows, no URI, no UTI. No recent sickle cell crisis as far she knows, she does have chronic pain for which she uses Endocet or Sandy Level as needed. No recent changes in her medications except for Flexeril that she takes rarely as needed for muscle spasms. She has noted bleeding gum for the past 2 days, she went to her primary care physician who referred her to the emergency department with suspicion of severe thrombocytopenia. In the emergency department, her platelet count is 3, given her episodes of bleeding, she will be transfused 1 unit of platelets, her new oncologist as an outpatient is Dr. Holguin with [facility]. I have contacted him, and his colleague, , will be seeing the patient in a.m., in the meantime I have talked with Dr Oro and she agrees with platelet transfusion, initiation of IVIG 1 g/kg daily x2 days, she will see the patient in AM and decide if additional steroids needs to be given. Patient is agreeable with the plan and is being admitted to telemetry. I have ordered IVIG and discussed administration with pharmacy, patient has a history of episode of hypotension with IVIG transfusion but was subsequently tolerated at a lower rate of transfusion and with Benadryl to be given half an hour prior to transfusion. ROS Constitutional: no complaints Eyes: no complaints ENT: bleeding (gums x 2 days ) Respiratory: no complaints Cardiovascular: no complaints Gastrointestinal: no complaints Genitourinary: no complaints Musculoskeletal: no complaints Skin: other (petechiae) Neurologic: no complaints Endocrine: no complaints Lymphatic: no complaints Psychological: no complaints Immunologic: no complaints PMH/Family/Social Past Medical History Systemic lupus erythematous Sickle cell anemia, chronic anemia ITP with chronic thrombocytopenia Hypothyroidism Chronic pain Medications Current Medications Ondansetron HCl (Zofran Inj) 4 mg ER BRIDGE PRN IV NAUSEA/VOMITING; Start 12/13/18 at 17:30; Stop 12/14/18 at 17:29 Acetaminophen (Tylenol Tab) 650 mg ER BRIDGE PRN PO .MILD PAIN 1-3 OR TEMP; Start 12/13/18 at 17:30; Stop 12/14/18 at 17:29 Cholecalciferol (Vitamin D) 1,000 unit DAILY PO ; Start 12/14/18 at 09:00 Levothyroxine Sodium (Synthroid) 200 mcg BEFORE BREAKFAST PO ; Start 12/14/18 at 07:00 Immune Globulin (Carimune Nf) 65 gm DAILY IV ; Start 12/13/18 at 17:30; Status UNV IV Flush (NS 3 ml) 3 ml PER PROTOCOL IV ; Start 12/13/18 at 17:30 Ondansetron HCl (Zofran Inj) 4 mg Q6H PRN IV NAUSEA/VOMITING; Start 12/13/18 at 17:30 Acetaminophen (Tylenol Tab) 650 mg Q6H PRN PO .PAIN 1-3 OR TEMP; Start 12/13/18 at 17:30 Oxycodone/ Acetaminophen (Percocet (5/ 325)) 1 tab Q6H PRN PO PAIN LEVEL 1-5; Start 12/13/18 at 17:30 Hydromorphone HCl (Dilaudid) 0.5 mg Q4H PRN IV .PAIN 7-10; Start 12/13/18 at 17:30 Docusate Sodium (Colace) 100 mg Q12H PRN PO .CONSTIPATION; Start 12/13/18 at 17:30 Magnesium Hydroxide (Milk Of Mag) 30 ml DAILY PRN PO .CONSTIPATION; Start 12/13/18 at 17:30 Bisacodyl (Dulcolax Supp) 10 mg DAILY PRN VT .CONSTIPATION; Start 12/13/18 at 17:30 Diphenhydramine HCl (Benadryl) 50 mg Q6H PRN PO ITCHING; Start 12/13/18 at 17:30 Cyclobenzaprine HCl (Flexeril) 10 mg TID PRN PO MUSCLE SPASMS; Start 12/13/18 at 17:30 Coded Allergies: immune globulin,gamma (IgG) human (Verified Adverse Reaction, Mild, HYPOTENSION, 12/13/18) PATIENT HAS RECEIVED IVIG IN THE PAST. MONITOR BP IF GIVEN Past Surgical History S/p splenectomy S/p hystercetomy S/p IVC filter placement in 2012 Past Surgical Hx: other Family History Significant Family History: other Social History Alcohol Use: none Smoking Status: Former smoker Drug Use: none Exam/Review of Systems Vital Signs Vitals Vital Signs Date Temp Pulse Resp B/P (MAP) Pulse Ox O2 O2 Flow FiO2 Time Delivery Rate 12/13/18 98.7 63 16 120/84 100 Room Air 15:34 (96) Exam Constitutional: alert, oriented, well developed Head: normocephalic, atraumatic Eyes: nl conjunctiva, EOMI, nl sclera ENMT: nl lips & teeth, mucosa pink and moist Neck: supple, non-tender Respiratory: clear to auscultation, normal air movement Cardiovascular: regular rate and rhythm, nl pulses Gastrointestinal: soft, non-tender Musculoskeletal: nl extremities to inspection, nl gait and stance Extremities: normal pulses, other (no edema, clubbing or cyanosis ) Neurological: SURG RN II-XII intact, nl mental status, nl speech, nl strength Skin: other (petechiae ) VEL ALTAMIRANO Dec 13, 2018 17:40
--- NOTE | 2018-12-13 18:05 | ERD ---
ER Documentation Chief Complaint Chief Complaint gen pain feels like sickle cell crisis coming. bleed gums x2d. hx ITP HPI This is a very pleasant 33-year-old female with a known history of sickle cell disease, lupus, fibromyalgia and ITP presented to the emergency department complaining of generalized weakness and muscle aches of the upper and lower extremities for the past 48 hours. The patient stated this feels like her previ ous sickle cell crisis. However the patient became concerned that she stated for the past 48 hours she is also been experiencing petechiae of her upper extremities. She stated she awoke this morning with blood in her oropharynx. She went to her primary care physician who instructed her to immediately come to the emergency department to be further evaluated. The patient denies any hemoptysis hematemesis or melanotic stools. She said no fevers no shaking no chills. She denies any shortness of breath. She has had no recent travel or hospitalizations. She denies any illicit drug use. ROS All systems reviewed and are negative except as per history of present illness. Medications Home Meds Reported Medications Cholecalciferol* (Vitamin D3*) 1,000 Unit Tablet, 1000 UNIT PO DAILY, TAB 11/08/18 Buprenorphine (Butrans) 1 Each Patch.tdwk, 1 EACH TD Q FRI 09/17/18 Levothyroxine Sodium* (Levothyroxine Sodium*) 200 Mcg Tablet, 200 MCG PO BEFORE BREAKFAST, #30 TAB 09/17/18 Oxycodone HCl/Acetaminophen (Oxycodone-Acetaminophen 10-325) 1 Each Tablet, 1 EACH PO TID, TAB 09/17/18 Ondansetron Hcl* (Zofran*) 4 Mg Tab, 4 MG PO Q6H PRN for NAUSEA AND OR VOMITING, TAB 09/17/18 Allergies Allergies: Coded Allergies: immune globulin,gamma (IgG) human (Verified Adverse Reaction, Mild, HYPOTENSION, 12/13/18) PATIENT HAS RECEIVED IVIG IN THE PAST. MONITOR BP IF GIVEN PMhx/Soc History of Surgery: Yes (IVC FILTER (abd), C SEC X'S 1, SPLENECTOMY) Anesthesia Reaction: No Hx Neurological Disorder: No Hx Respiratory Disorders: Yes (Previous pulmonary embolism) Hx Cardiac Disorders: No Hx Miscellaneous Medical Probl: Yes (Chronic pain, LUPUS, HYPOTHYROID, fibromyalgia, sickle cell trait) Hx Alcohol Use: No Hx Substance Use: No Hx Tobacco Use: No (QUIT 2 WEEKS AGO) Smoking Status: Former smoker Physical Exam Vitals Vital Signs Date Temp Pulse Resp B/P (MAP) Pulse Ox O2 O2 Flow FiO2 Time Delivery Rate 12/13/18 98.7 63 16 120/84 100 Room Air 15:34 (96) 12/13/18 98.7 77 16 134/80 100 12:55 (98) Physical Exam Constitutional:Well-developed. Well-nourished. HEENT:Normocephalic. Atraumatic.Pupils were equal round reactive to light. Moist mucous membranes.No tonsillar exudates. Conjunctival pallor. No blood present within the oropharynx. No bleeding of the gingival mucosa. Neck: No nuchal rigidity. No lymphadenopathy. No posterior cervical spine tenderness or step-offs. Respiratory: Not using accessory muscles of respiration.Lungs were clear to auscultation bilaterally. No rhonchi. No rales. No wheezing. Cardiovascular: Regular rate regular rhythm.No murmurs. No rubs were appreciated.S1, S2 normal. Distal pulses are palpable 2+ bilaterally. GI: Abdomen was soft. Nontender. Non Distended. No pulsatile abdominal masses or bruits. No rebound. No guarding. Bowel sounds were present and normal. Muscle skeletal: Full range of motion of both the upper and lower extremities bilaterally.Normal muscle tone.No assymetrical calf tenderness or swelling. Skin: Multiple petechia of the bilateral upper extremities. No lesions on the palms or the soles of the feet. No maculopapular rash. NEURO: Patient was alert, awake, orientated x3.No facial droop. Gait observed and normal with no ataxia.Speech had regular rate and rhythm. No focal neurological deficits. Result Diagram: 12/13/18 1541 12/13/18 1540 Results 24 hrs Laboratory Tests Test 12/13/18 15:40 12/13/18 15:41 12/13/18 15:42 Sodium Level 143 mmol/L Potassium Level 3.9 mmol/L Chloride Level 103 mmol/L Carbon Dioxide Level 30 mmol/L Anion Gap 10 Blood Urea Nitrogen 8 mg/dl Creatinine 0.98 mg/dl Est Glomerular Filtrat Rate mL/min > 60 mL/min Glucose Level 94 mg/dl Calcium Level 9.7 mg/dl Total Bilirubin 0.5 mg/dl Direct Bilirubin 0.00 mg/dl Indirect Bilirubin 0.5 mg/dl Aspartate Amino Transf (AST/SGOT) 38 IU/L Alanine 14 IU/L Aminotransferase (ALT/SGPT) Alkaline Phosphatase 69 IU/L Total Protein 10.6 g/dl Albumin 4.9 g/dl Globulin 5.70 g/dl Albumin/Globulin Ratio 0.85 White Blood Count 6.5 10^3/ul Red Blood Count 3.60 10^6/ul Hemoglobin 10.6 g/dl Hematocrit 31.9 % Mean Corpuscular Volume 88.6 fl Mean Corpuscular Hemoglobin 29.4 pg Mean Corpuscular 33.2 g/dl Hemoglobin Concent Red Cell Distribution Width 13.5 % Platelet Count 3 10^3/UL Mean Platelet Volume fl Immature Granulocytes % 0.300 % Neutrophils % % Segmented Neutrophils % (Manual) 65 % Lymphocytes % % Lymphocytes % (Manual) 23 % Monocytes % % Monocytes % (Manual) 9 % Eosinophils % % Eosinophils % (Manual) 2 % Basophils % % Basophils % (Manual) 1 % Nucleated Red Blood Cells % 0.0 /100WBC Immature Granulocytes # 0.020 10^3/ul Neutrophils # 10^3/ul Lymphocytes (Manual) 1.4 10^3/ul Lymphocytes # 10^3/ul Monocytes # 10^3/ul Monocytes # (Manual) 0.5 10^3/ul Eosinophils # 10^3/ul Basophils # 10^3/ul Basophils # (Manual) 0.0 10^3/ul Nucleated Red Blood Cells # 10^3/ul Pathologist Review (Hematology) YES Anisocytosis 1+ Macrocytosis 1+ Absolute Reticulocyte Count 0.054 X10^6 Percent Reticulocyte Count 1.5 % Prothrombin Time 13.4 Sec Prothrombin Time Ratio 1.0 INR International Normalized Ratio 1.01 Activated Partial Thromboplast 29.7 Sec Time Current Medications Medications Dose Sig/Navi Start Time Status Last (Trade) Ordered Route PRN Stop Time Admin Dose Reason Admin Sodium 1,000 ml @ Q1H STAT 12/13/18 DC 12/13/18 Chloride 1,000 mls/hr IV 15:31 16:05 12/13/18 16:30 50 mg ONCE STAT 12/13/18 DC 12/13/18 Diphenhydrami IV 15:53 16:07 ne HCl 12/13/18 15:58 (Benadryl) 1 mg ONCE STAT 12/13/18 DC 12/13/18 Hydromorphone IV 15:53 16:07 HCl 12/13/18 15:58 (Dilaudid) Ondansetron 4 mg ONCE STAT 12/13/18 DC 12/13/18 HCl (Zofran IV 15:53 16:07 Inj) 12/13/18 15:58 1 mg ONCE STAT 12/13/18 DC 12/13/18 Hydromorphone IV 17:13 17:54 HCl 12/13/18 17:14 (Dilaudid) Ondansetron 4 mg ER BRIDGE 12/13/18 HCl (Zofran PRN IV 17:30 Inj) NAUSEA/VOMITI 12/14/18 17:29 NG 650 mg ER BRIDGE 12/13/18 Acetaminophen PRN PO 17:30 (Tylenol .MILD PAIN 12/14/18 17:29 Tab) 1-3 OR TEMP 1,000 unit DAILY PO 12/14/18 Cholecalcifer 09:00 ol (Vitamin D) 200 mcg BEFORE 12/14/18 Levothyroxine BREAKFAST 07:00 Sodium PO (Synthroid) Immune 65 gm Q24H IV 12/13/18 UNV Globulin 19:30 (Carimune Nf) 12/14/18 19:31 IV Flush 3 ml PER 12/13/18 (NS 3 ml) PROTOCOL IV 17:30 Ondansetron 4 mg Q6H PRN 12/13/18 HCl (Zofran IV 17:30 Inj) NAUSEA/VOMITI NG 650 mg Q6H PRN 12/13/18 Acetaminophen PO .PAIN 1-3 17:30 (Tylenol OR TEMP Tab) Oxycodone/ 1 tab Q6H PRN 12/13/18 Acetaminophen PO PAIN 17:30 (Percocet LEVEL 1-5 (5/ 325)) 0.5 mg Q4H PRN 12/13/18 Hydromorphone IV .PAIN 17:30 HCl 7-10 (Dilaudid) Docusate 100 mg Q12H PRN 12/13/18 Sodium PO 17:30 (Colace) .CONSTIPATION Magnesium 30 ml DAILY PRN 12/13/18 Hydroxide PO 17:30 (Milk Of Mag) .CONSTIPATION Bisacodyl 10 mg DAILY PRN 12/13/18 (Dulcolax CA 17:30 Supp) .CONSTIPATION 50 mg Q6H PRN 12/13/18 Diphenhydrami PO ITCHING 17:30 ne HCl (Benadryl) 10 mg TID PRN 12/13/18 Cyclobenzapri PO MUSCLE 17:30 ne HCl SPASMS (Flexeril) Ondansetron 4 mg ONCE STAT 12/13/18 12/13/18 HCl (Zofran IV 17:41 17:54 Inj) 12/13/18 17:42 Procedures/MDM This is a very pleasant 33-year-old female that presented to the emergency d epartment physical exam findings were suggestive of a vaso-occlusive crisis. In addition the patient had severe thrombus cytopenia with a platelet count of 3000. Due to the fact that the patient had active bleeding of her gingival mucosa she immediately was given a platelet pack. She provided a written consent to the blood transfusion. She been placed in a cardiac nurse specialist continuous pulse oximetry and IV access was established by nursing to. She was given intravenous Dilaudid Benadryl and Zofran. The patient will be admitted to the renal physician Dr. Simms and will go to the telemetry service. Critical Care: Time: 65 minutes Treatments/Evaluations: Close monitoring and treatment of unstable vital signs, cardiorespiratory, and neurologic status, while maintaining tight balance of fl uid, respiratory, and cardiac interventions. Time does not include performing any of the above billable procedures. Departure Diagnosis: Primary Impression: Sickle cell crisis Additional Impression: ITP (idiopathic thrombocytopenic purpura) Condition: Serious GERARD ASCENCIO MD Dec 13, 2018 18:05
[2018-12-13] MEDS ORDERED: IMMUNE GLOBULIN (HUMAN) 6 GM INJ IV SCH (19:30)
[2018-12-13] MEDS: HYDROmorphONE 0.5 MG/0.5 ML SYG IV PRN (19:56)
[2018-12-13] MEDS: IGA AVG IVPB SCH (20:05)
[2018-12-13] MEDS: IMMUNE GLOBUL IVPB SCH (20:05)
[2018-12-13] MEDS: IMMUNE GLOBULIN IVPB SCH (20:05)
[2018-12-13] MEDS: EVAC CONTAINER IVPB SCH (20:05)
[2018-12-13] MEDS: GLY IVPB SCH (20:05)
[2018-12-13] MEDS ORDERED: DIPHENHYDRAMINE 50 MG INJ IV ONE (20:30)
[2018-12-13] MEDS: OXYCODONE/ACETAMINOPHEN (5/325) TAB PO PRN (21:17)
[2018-12-13 21:20] VITALS: BP 115/77; PULSE 65; RESP 20
[2018-12-13] MEDS ORDERED: HYDROmorphONE 1 MG/ML SYG IV ONE (23:30)
[2018-12-13 23:49] VITALS: BP 111/79; PULSE 70; RESP 20
[2018-12-14] VITALS (7 sets, daily range): BP systolic 105–124; BP diastolic 56–74; PULSE 58–66; RESP 20–21
[2018-12-14] MEDS: HYDROmorphONE 0.5 MG/0.5 ML SYG IV PRN (01:20)
[2018-12-14] MEDS ORDERED: LEVOTHYROXINE 100 MCG TAB PO SCH ×2 (07:00→11:30)
[2018-12-14] MEDS: HYDROmorphONE 1 MG/ML SYG IV PRN ×5 (08:04→21:33)
[2018-12-14] MEDS: ONDANSETRON 4 MG INJ IV PRN (08:05)
[2018-12-14] MEDS: DIPHENHYDRAMINE 50 MG CAP PO PRN (08:15)
[2018-12-14] MEDS: CHOLECALCIFEROL 1,000 UNIT TAB PO SCH (08:15)
--- NOTE | 2018-12-14 08:31 | CONS ---
Assessment/Plan Assessment/Plan Assessment/Plan (Daily) 33 yo F with history of ITP presents with gum bleeding and platelet count of 3,000. # ITP - received 1u platelet and IVIG x 1 - can hold off on further IVIG as platelet count is currently >100K - baseline platelet count is 30-50K - she has been refractory to steroids, splenectomy and rituximab - can consider high dose dexamethasone or restarting promacta as an outpatient - she should have close follow-up with Dr. Holguin (CBC check on within 5 days of discharge) # Anemia - baseline hemoglobin 9-10, anemia on repeat labs ?dilutional - transfuse for Hgb <7 # Sickle cell - continue dilaudid prn for pain, no NSAIDs given thrombocytopenia - IVF - resume home regimen on discharge and follow-up with pain management Thank you for allowing me to participate in this patient's care. Please call dia h further questions or concerns. Consultation Date/Type/Reason Admit Date/Time Date of Consultation: Dec 14, 2018 Type of Consult Hematology Consult Note Reason for Consultation ITP, thrombocytopenia Date/Time of Note DATE: 12/14/18 TIME: 08:14 Hx of Present Illness 33 yo F with history of ITP diagnosed in 2011. 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 She responded to Promacta in the past but she stopped after a while as she was worried about side effects. For the past 2 years she has not required medication or transfusions for thrombocytopenia. A few days prior to admission she noted spontaneous gum bleeding and petechiae and presented to the emergency room. Platelets yesterday upon presentation was 3,000. She received 1u platelets and IVIG and platelets this morning are 102,000. She denies further bleeding. She also has sickle cell disease and follows with pain management as an outpatient and is on a stable regimen. She has worsening bone pain and is receiving dilaudid with minimal relief. She has SLE managed by rheumatology. Constitutional: improved Eyes: no complaints ENT: no complaints Respiratory: no complaints Cardiovascular: no complaints Gastrointestinal: no complaints Genitourinary: no complaints Musculoskeletal: bone/joint pain Skin: other (petechiae- improved) Neurologic: no complaints Endocrine: no complaints Lymphatic: no complaints Psychological: no complaints Immunologic: no complaints Past Medical History SLE Sickle cell trait ITP Hypothyroidism Home Meds Reported Medications Cholecalciferol* (Vitamin D3*) 1,000 Unit Tablet, 1000 UNIT PO DAILY, TAB 11/08/18 Buprenorphine (Butrans) 1 Each Patch.tdwk, 1 EACH TD Q FRI 09/17/18 Levothyroxine Sodium* (Levothyroxine Sodium*) 200 Mcg Tablet, 200 MCG PO BEFORE BREAKFAST, #30 TAB 09/17/18 Oxycodone HCl/Acetaminophen (Oxycodone-Acetaminophen 10-325) 1 Each Tablet, 1 EACH PO TID, TAB 09/17/18 Ondansetron Hcl* (Zofran*) 4 Mg Tab, 4 MG PO Q6H PRN for NAUSEA AND OR VOMITING, TAB 09/17/18 Medications Current Medications Cholecalciferol (Vitamin D) 1,000 unit DAILY PO ; Start 12/14/18 at 09:00 Levothyroxine Sodium (Synthroid) 200 mcg BEFORE BREAKFAST PO Last administered on 12/14/18at 07:02; Admin Dose 200 MCG; Start 12/14/18 at 07:00 IV Flush (NS 3 ml) 3 ml PER PROTOCOL IV ; Start 12/13/18 at 17:30 Ondansetron HCl (Zofran Inj) 4 mg Q6H PRN IV NAUSEA/VOMITING Last administered on 12/14/18at 08:05; Admin Dose 4 MG; Start 12/13/18 at 17:30 Acetaminophen (Tylenol Tab) 650 mg Q6H PRN PO .PAIN 1-3 OR TEMP; Start 12/13/18 at 17:30 Oxycodone/ Acetaminophen (Percocet (5/ 325)) 1 tab Q6H PRN PO PAIN LEVEL 1-5 Last administered on 12/13/18at 21:17; Admin Dose 1 TAB; Start 12/13/18 at 17:30 Docusate Sodium (Colace) 100 mg Q12H PRN PO .CONSTIPATION; Start 12/13/18 at 17:30 Magnesium Hydroxide (Milk Of Mag) 30 ml DAILY PRN PO .CONSTIPATION; Start 12/13/18 at 17:30 Bisacodyl (Dulcolax Supp) 10 mg DAILY PRN MO .CONSTIPATION; Start 12/13/18 at 17:30 Diphenhydramine HCl (Benadryl) 50 mg Q6H PRN PO ITCHING; Start 12/13/18 at 17:30 Cyclobenzaprine HCl (Flexeril) 10 mg TID PRN PO MUSCLE SPASMS; Start 12/13/18 at 17:30 Immune Globulin 60 gm/Immune Globulin 5 gm/ Device 650 ml @ 108.333 mls/hr Q24H IVPB Last administered on 12/13/18at 20:05; Admin Dose 108.333 MLS/HR; Start 12/13/18 at 19:30; Stop 12/15/18 at 01:29 Hydromorphone HCl (Dilaudid) 1 mg Q3H PRN IV PAIN 7-10 Last administered on 12/14/18at 08:04; Admin Dose 1 MG; Start 12/14/18 at 02:00 Allergies: Coded Allergies: immune globulin,gamma (IgG) human (Verified Adverse Reaction, Mild, HYPOTENSION, 12/13/18) PATIENT HAS RECEIVED IVIG IN THE PAST. MONITOR BP IF GIVEN Past Surgical History IVC filter placement Splenectomy Past Surgical Hx: other Family History Significant Family History: no pertinent family hx Social History Alcohol Use: none Smoking Status: Never smoker Drug Use: none Exam/Review of Systems Exam Vitals Vital Signs Date Temp Pulse Resp B/P (MAP) Pulse Ox O2 O2 Flow FiO2 Time Delivery Rate 12/14/18 98.0 61 20 124/74 99 Room Air 07:17 (91) Intake and Output 12/13/18 12/13/18 12/14/18 1515:00 23:00 07:00 IntakeIntake Total 1700 ml BalanceBalance 1700 ml Constitutional: alert, oriented, well developed Psych: nl mood/affect Head: normocephalic, atraumatic Eyes: nl conjunctiva, nl sclera ENMT: mucosa pink and moist Neck: supple Respiratory: clear to auscultation, normal air movement Cardiovascular: regular rate and rhythm Gastrointestinal: soft, non-tender Musculoskeletal: nl extremities to inspection Neurological: COOKIE PADDER II-XII intact Skin: other (no petechiae or bruises) Lymph: nl lymph nodes Results Result Diagram: 12/14/18 0558 12/14/18 0558 Results 24hrs Laboratory Tests Test 12/13/18 15:40 12/13/18 15:41 12/13/18 15:42 12/14/18 05:58 Sodium Level 143 142 Potassium Level 3.9 4.2 Chloride Level 103 107 Carbon Dioxide Level 30 27 Anion Gap 10 8 Blood Urea Nitrogen 8 12 Creatinine 0.98 1.12 H Est Glomerular > 60 > 60 Filtrat Rate mL/min Glucose Level 94 82 Calcium Level 9.7 8.8 Total Bilirubin 0.5 0.4 Direct Bilirubin 0.00 0.00 Indirect Bilirubin 0.5 0.4 Aspartate Amino 38 29 Transf (AST/SGOT) Alanine 14 12 L Aminotransferase (AL T/SGPT) Alkaline Phosphatase 69 56 Total Protein 10.6 H 9.5 H Albumin 4.9 4.0 Globulin 5.70 H 5.50 H Albumin/Globulin 0.85 0.72 Ratio White Blood Count 6.5 6.6 Red Blood Count 3.60 L 2.53 #L Hemoglobin 10.6 L 7.8 #L Hematocrit 31.9 L 23.6 #L Mean Corpuscular 88.6 93.3 Volume Mean Corpuscular 29.4 30.8 Hemoglobin Mean Corpuscular 33.2 33.1 Hemoglobin Concent Red Cell 13.5 14.1 Distribution Width Platelet Count 3 #*L 102 #L Mean Platelet Volume 10.7 H Immature 0.300 0.300 Granulocytes % Neutrophils % 65.0 Segmented 65 Neutrophils % (Manual) Lymphocytes % 24.1 Lymphocytes % 23 (Manual) Monocytes % 7.4 Monocytes % (Manual) 9 Eosinophils % 2.7 Eosinophils % 2 (Manual) Basophils % 0.5 Basophils % (Manual) 1 Nucleated Red Blood 0.0 0.0 Cells % Immature 0.020 0.020 Granulocytes # Neutrophils # 4.3 Lymphocytes (Manual) 1.4 Lymphocytes # 1.6 Monocytes # 0.5 Monocytes # (Manual) 0.5 Eosinophils # 0.2 Basophils # 0.0 Basophils # (Manual) 0.0 Nucleated Red Blood 0.0 Cells # Pathologist YES Review (Hematology) Anisocytosis 1+ Macrocytosis 1+ Absolute 0.054 Reticulocyte Count Percent Reticulocyte 1.5 Count Prothrombin Time 13.4 Prothrombin Time 1.0 Ratio INR International 1.01 Normalized Ratio Activated 29.7 Partial Thromboplast Time Magnesium Level 2.0 Thyroid Stimulating Pending Hormone (TSH) Medications Medication Current Medications Cholecalciferol (Vitamin D) 1,000 unit DAILY PO ; Start 12/14/18 at 09:00 Levothyroxine Sodium (Synthroid) 200 mcg BEFORE BREAKFAST PO Last administered on 12/14/18at 07:02; Admin Dose 200 MCG; Start 12/14/18 at 07:00 IV Flush (NS 3 ml) 3 ml PER PROTOCOL IV ; Start 12/13/18 at 17:30 Ondansetron HCl (Zofran Inj) 4 mg Q6H PRN IV NAUSEA/VOMITING Last administered on 12/14/18 08:05; Admin Dose 4 MG; Start 12/13/18 at 17:30 Acetaminophen (Tylenol Tab) 650 mg Q6H PRN PO .PAIN 1-3 OR TEMP; Start 12/13/18 at 17:30 Oxycodone/ Acetaminophen (Percocet (5/ 325)) 1 tab Q6H PRN PO PAIN LEVEL 1-5 Last administered on 12/13/18at 21:17; Admin Dose 1 TAB; Start 12/13/18 at 17:30 Docusate Sodium (Colace) 100 mg Q12H PRN PO .CONSTIPATION; Start 12/13/18 at 17:30 Magnesium Hydroxide (Milk Of Mag) 30 ml DAILY PRN PO .CONSTIPATION; Start 12/13/18 at 17:30 Bisacodyl (Dulcolax Supp) 10 mg DAILY PRN MO .CONSTIPATION; Start 12/13/18 at 17:30 Diphenhydramine HCl (Benadryl) 50 mg Q6H PRN PO ITCHING; Start 12/13/18 at 1 7:30 Cyclobenzaprine HCl (Flexeril) 10 mg TID PRN PO MUSCLE SPASMS; Start 12/13/18 at 17:30 Immune Globulin 60 gm/Immune Globulin 5 gm/ Device 650 ml @ 108.333 mls/hr Q24H IVPB Last administered on 12/13/18at 20:05; Admin Dose 108.333 MLS/HR; Start 12/13/18 at 19:30; Stop 12/15/18 at 01:29 Hydromorphone HCl (Dilaudid) 1 mg Q3H PRN IV PAIN 7-10 Last administered on 12/14/18at 08:04; Admin Dose 1 MG; Start 12/14/18 at 02:00 SONIA HGUHES MD Dec 14, 2018 08:24
[2018-12-14] MEDS: OXYCODONE/ACETAMINOPHEN (5/325) TAB PO PRN (09:55)
[2018-12-14] MEDS ORDERED: SOD CHLORIDE 0.9% 500 ML IV ONE (11:30)
--- NOTE | 2018-12-14 12:16 | PN ---
Date/Time of Note Date/Time of Note DATE: 12/14/18 TIME: 11:32 Assessment/Plan VTE Prophylaxis Risk score (from [facility])>0 risk: 1 SCD applied (from [facility]): No SCD contraindicated: other (ITP and severe thrombocytopenia ) Pharmacological prophylaxis: NA/contraindicated Pharm contraindication: thrombocytopenia Lines/Catheters IV C[facility]ter Type [facility]from [facility] [place] Urinary Cath still in place: No Assessment/Plan Assessment/Plan 33-year-old female with: 1. Acute on chronic thrombocytopenia, known ITP. Usually platelet levels in the upper 20s to 50s at least over the past few months, presented with platelets of 3 and episodes of gum bleeding S/p 1 dose of IVIG, and 1 unit of platelet transfusion and plts up tp 102 this AM. Discussed with hematology, Dr Oro, this AM, will hold second dose of IVIG today and repeat CBC later today and in AM and if plts drops drastically later today or in AM, will give 2nd dose of IVIG. See consult note from Dr. Oro for additional outpatient recommendations Continue monitoring telemetry during IVIG infusion, patient had a history of previous hypotensive episode during transfusion, discussed with pharmacy, her rate of transfusion will be adjusted and also she is to receive Benadryl 50 mg p.o. at least 30 minutes prior to transfusion. 2. Sickle cell, known chronic anemia, Hb 7.8 with ongoing generalized body ache Possibly in sickle crisis NS bolus followed by NS@100 cc/hr F/u h/h later and in AM, may need pRBC if Hb<or=7 Pain control with Dilaudid, avoiding NSAIDs. 3. Chronic pain, secondary to sickle cell and possibly in crisis, usually on [place] or Percocet as needed. Continue Dilaudid IV prn while inpatient for severe pain. IVF 4. Hypothyroidism: TFTs significantly abnormal, free T4 at 0.15 and TSH up to 374 and according to patient, she has been difficult to control, she is followed by endocrinology, Dr. Rocío Ritter, her Synthroid was recently increased to 225 mcg daily. Increase Synthroid to 250 mcg daily and recheck TFTs in 4 to 6 weeks and follow up with Dr Ritter outpatient as scheduled. 5. Systemic lupus erythematous, f/u with Per Diem Nurse outpatient. Prophylaxis: SCDs and pharmacological prophylaxis contraindicated currently given severe thrombocytopenia and high risk of bleeding, very easy bruising. Disposition: Telemetry, f/u CBC later today and in AM, possible IVIG 2nd dose to be given later tonight or in AM if needed. pRBC transfusion as needed. Result Diagram: 12/14/18 0558 12/14/18 0558 Results 24hrs Laboratory Tests Test 12/13/18 15:40 12/13/18 15:41 12/13/18 15:42 12/14/18 05:58 Sodium Level 143 142 Potassium Level 3.9 4.2 Chloride Level 103 107 Carbon Dioxide Level 30 27 Anion Gap 10 8 Blood Urea Nitrogen 8 12 Creatinine 0.98 1.12 H Est Glomerular > 60 > 60 Filtrat Rate mL/min Glucose Level 94 82 Calcium Level 9.7 8.8 Total Bilirubin 0.5 0.4 Direct Bilirubin 0.00 0.00 Indirect Bilirubin 0.5 0.4 Aspartate Amino 38 29 Transf (AST/SGOT) Alanine 14 12 L Aminotransferase (AL T/SGPT) Alkaline Phosphatase 69 56 Total Protein 10.6 H 9.5 H Albumin 4.9 4.0 Globulin 5.70 H 5.50 H Albumin/Globulin 0.85 0.72 Ratio White Blood Count 6.5 6.6 Red Blood Count 3.60 L 2.53 #L Hemoglobin 10.6 L 7.8 #L Hematocrit 31.9 L 23.6 #L Mean Corpuscular 88.6 93.3 Volume Mean Corpuscular 29.4 30.8 Hemoglobin Mean Corpuscular 33.2 33.1 Hemoglobin Concent Red Cell 13.5 14.1 Distribution Width Platelet Count 3 #*L 102 #L Mean Platelet Volume 10.7 H Immature 0.300 0.300 Granulocytes % Neutrophils % 65.0 Segmented 65 Neutrophils % (Manual) Lymphocytes % 24.1 Lymphocytes % 23 (Manual) Monocytes % 7.4 Monocytes % (Manual) 9 Eosinophils % 2.7 Eosinophils % 2 (Manual) Basophils % 0.5 Basophils % (Manual) 1 Nucleated Red Blood 0.0 0.0 Cells % Immature 0.020 0.020 Granulocytes # Neutrophils # 4.3 Lymphocytes (Manual) 1.4 Lymphocytes # 1.6 Monocytes # 0.5 Monocytes # (Manual) 0.5 Eosinophils # 0.2 Basophils # 0.0 Basophils # (Manual) 0.0 Nucleated Red Blood 0.0 Cells # Pathologist YES Review (Hematology) Anisocytosis 1+ Macrocytosis 1+ Absolute 0.054 Reticulocyte Count Percent Reticulocyte 1.5 Count Prothrombin Time 13.4 Prothrombin Time 1.0 Ratio INR International 1.01 Normalized Ratio Activated 29.7 Partial Thromboplast Time Magnesium Level 2.0 Thyroid Stimulating 374.000 H Hormone (TSH) Free Thyroxine 0.15 L Subjective 24 Hr Interval Summary Free Text/Dictation Patient complaining of total body aches, she feels significant myalgia and also describing almost bone pain, symptoms consistent with a sickle cell crisis more so than lupus flare. Appreciate recommendations from hematology, patient started on IV fluids currently and will continuing pain control with narcotics. Her platelets are up to 102 this AM, unclear if secondary to IVIG or platelet infusion therefore will repeat CBC later today, she may end up needing the second dose of IVIG if there is a drastic drop in her platelet level, otherwise will recheck in a.m. and again decide if she needs that second dose of IVIG. Exam/Review of Systems Exam Vitals Vital Signs Date Temp Pulse Resp B/P (MAP) Pulse Ox O2 O2 Flow FiO2 Time Delivery Rate 12/14/18 97.7 65 20 109/74 100 Room Air 11:24 (86) Intake and Output 12/13/18 12/13/18 12/14/18 1515:00 23:00 07:00 IntakeIntake Total 1700 ml BalanceBalance 1700 ml Constitutional: alert, oriented, well developed, distress (mild 2ry to severe pain ) Respiratory: clear to auscultation, normal air movement Cardiovascular: regular rate and rhythm, nl pulses Gastrointestinal: soft, non-tender Musculoskeletal: nl extremities to inspection, nl gait and stance, other (severe myalgias ) Extremities: normal pulses, other (no edema, clubbing or cyanosis ) Neurological: COMPUTER GAME PROGRAMMER II-XII intact, nl mental status, nl speech, nl strength Results Results 24hrs Laboratory Tests Test 12/13/18 15:40 12/13/18 15:41 12/13/18 15:42 12/14/18 05:58 Sodium Level 143 142 Potassium Level 3.9 4.2 Chloride Level 103 107 Carbon Dioxide Level 30 27 Anion Gap 10 8 Blood Urea Nitrogen 8 12 Creatinine 0.98 1.12 H Est Glomerular > 60 > 60 Filtrat Rate mL/min Glucose Level 94 82 Calcium Level 9.7 8.8 Total Bilirubin 0.5 0.4 Direct Bilirubin 0.00 0.00 Indirect Bilirubin 0.5 0.4 Aspartate Amino 38 29 Transf (AST/SGOT) Alanine 14 12 L Aminotransferase (AL T/SGPT) Alkaline Phosphatase 69 56 Total Protein 10.6 H 9.5 H Albumin 4.9 4.0 Globulin 5.70 H 5.50 H Albumin/Globulin 0.85 0.72 Ratio White Blood Count 6.5 6.6 Red Blood Count 3.60 L 2.53 #L Hemoglobin 10.6 L 7.8 #L Hematocrit 31.9 L 23.6 #L Mean Corpuscular 88.6 93.3 Volume Mean Corpuscular 29.4 30.8 Hemoglobin Mean Corpuscular 33.2 33.1 Hemoglobin Concent Red Cell 13.5 14.1 Distribution Width Platelet Count 3 #*L 102 #L Mean Platelet Volume 10.7 H Immature 0.300 0.300 Granulocytes % Neutrophils % 65.0 Segmented 65 Neutrophils % (Manual) Lymphocytes % 24.1 Lymphocytes % 23 (Manual) Monocytes % 7.4 Monocytes % (Manual) 9 Eosinophils % 2.7 Eosinophils % 2 (Manual) Basophils % 0.5 Basophils % (Manual) 1 Nucleated Red Blood 0.0 0.0 Cells % Immature 0.020 0.020 Granulocytes # Neutrophils # 4.3 Lymphocytes (Manual) 1.4 Lymphocytes # 1.6 Monocytes # 0.5 Monocytes # (Manual) 0.5 Eosinophils # 0.2 Basophils # 0.0 Basophils # (Manual) 0.0 Nucleated Red Blood 0.0 Cells # Pathologist YES Review (Hematology) Anisocytosis 1+ Macrocytosis 1+ Absolute 0.054 Reticulocyte Count Percent Reticulocyte 1.5 Count Prothrombin Time 13.4 Prothrombin Time 1.0 Ratio INR International 1.01 Normalized Ratio Activated 29.7 Partial Thromboplast Time Magnesium Level 2.0 Thyroid Stimulating 374.000 H Hormone (TSH) Free Thyroxine 0.15 L Medications Medication Current Medications Cholecalciferol (Vitamin D) 1,000 unit DAILY PO Last administered on 12/14/18at 08:15; Admin Dose 1,000 UNIT; Start 12/14/18 at 09:00 IV Flush (NS 3 ml) 3 ml PER PROTOCOL IV ; Start 12/13/18 at 17:30 Ondansetron HCl (Zofran Inj) 4 mg Q6H PRN IV NAUSEA/VOMITING Last administered on 12/14/18at 08:05; Admin Dose 4 MG; Start 12/13/18 at 17:30 Acetaminophen (Tylenol Tab) 650 mg Q6H PRN PO .PAIN 1-3 OR TEMP; Start 12/13/18 at 17:30 Oxycodone/ Acetaminophen (Percocet (5/ 325)) 1 tab Q6H PRN PO PAIN LEVEL 1-5 Last administered on 12/14/18at 09:55; Admin Dose 1 TAB; Start 12/13/18 at 17:30 Docusate Sodium (Colace) 100 mg Q12H PRN PO .CONSTIPATION; Start 12/13/18 at 17:30 Magnesium Hydroxide (Milk Of Mag) 30 ml DAILY PRN PO .CONSTIPATION; Start 12/13/18 at 17:30 Bisacodyl (Dulcolax Supp) 10 mg DAILY PRN [place] .CONSTIPATION; Start 12/13/18 at 17:30 Diphenhydramine HCl (Benadryl) 50 mg Q6H PRN PO ITCHING Last administered on 12/14/18at 08:15; Admin Dose 50 MG; Start 12/13/18 at 17:30 Cyclobenzaprine HCl (Flexeril) 10 mg TID PRN PO MUSCLE SPASMS; Start 12/13/18 at 17:30 Immune Globulin 60 gm/Immune Globulin 5 gm/ Device 650 ml @ 108.333 mls/hr Q24H IVPB Last administered on 12/13/18at 20:05; Admin Dose 108.333 MLS/HR; Start 12/13/18 at 19:30; Status Hold Hydromorphone HCl (Dilaudid) 1 mg Q3H PRN IV PAIN 7-10 Last administered on 12/14/18at 08:04; Admin Dose 1 MG; Start 12/14/18 at 02:00 Sodium Chloride 500 ml @ 500 mls/hr Q1H ONCE IV ; Start 12/14/18 at 11:30; Stop 12/14/18 at 12:29; Status UNV Sodium Chloride 1,000 ml @ 100 mls/hr Q10H IV ; Start 12/14/18 at 11:30; Status UNV Levothyroxine Sodium (Synthroid) 300 mcg BEFORE BREAKFAST PO ; Start 12/14/18 at 11:30; Status UNV VEL ALTAMIRANO Dec 14, 2018 12:01
[2018-12-14] MEDS: SOD CHLORIDE 0.9% 1,000 ML IV SCH ×2 (13:14→21:37)
[2018-12-14] MEDS: CYCLOBENZAPRINE 10 MG TAB PO PRN ×2 (14:13→19:54)
[2018-12-14] MEDS ORDERED: OXYCODONE/ACETAMINOPHEN (10/325) TAB PO PRN (14:30)
[2018-12-14] MEDS: OXYCODONE/ACETAMINOPHEN (10/325) TAB PO PRN (17:21)
[2018-12-14] MEDS ORDERED: LEVOTHYROXINE 500 MCG VIAL IV ONE (19:00)
--- NOTE | 2018-12-14 19:23 | CONS ---
Assessment/Plan Assessment/Plan Problems: (1) Hypothyroid Status: Chronic Comment: She has antibody positive thyroid disease in the labs well-established in the chart. There may be an issue with her level of absorption, and there may be an issue with the timing or consistency of taking her tablets. Regardless she has a markedly elevated TSH which is not the first time she is at this year and a severely reduced T4. She is not at risk of myxedema coma however to get her feeling better faster we should treat her in a somewhat more aggressive fashion. I cannot tell you exactly how many of her symptoms that she presently has are due to the thyroid but many of them being aggravated by it. As such we can saturate her T4 receptors by giving her a single IV dose of T4 and then going to an oral regimen on a consistent basis. I would advocate for the combination usage of T4 at 300 mcg a day with T3. We can always back off on that at a future time. This will need to be followed up in roughly 6 weeks. Qualifiers: Qualified Codes: E03.8 - Other specified hypothyroidism; E06.3 - Autoimmune thyroiditis (2) ITP (idiopathic thrombocytopenic purpura) Status: Chronic Comment: As per hematology. In the past she has seen Dr. Mehran ruiz and Dr. Bland (3) Sickle cell trait Status: Chronic Comment: This is noted I am not sure that she is having sickle cell pain crisis at this time (4) Presence of IVC filter Status: Chronic Comment: Noted. (5) History of pulmonary embolus (PE) Onset Date: ~ 11/2012 Status: Chronic Comment: Noted. CC: VEL ALTAMIRANO; SONIA HUGHES MD ; Consultation Date/Type/Reason Admit Date/Time Date of Consultation: Dec 14, 2018 Type of Consult Endocrinology Reason for Consultation Hypothyroidism Requesting Provider: VEL ALTAMIRANO Date/Time of Note DATE: 12/14/18 TIME: 19:13 Hx of Present Illness Charming 33-year-old single -[place] female G1, P1 Ab0 with a long hi story of hypothyroidism. She has been on variable dosages of replacement therapy and has been managed by the endocrine subspecialist of [facility] including Dr. Ritter and Dr. Jaeger. She was seen once in the hospital by our group Dr. Herbert in 2016. She has had variable dosages of le vothyroxine. She reports that she has been taking her medications but has always been told that she is not getting enough. I have reviewed with her the timing of dosing of thyroid medications and the need taken on empty stomach. Patient at this time reports that she was not certain of all of those details (although it is documented in Dr. Herbert's note from 2016). Regardless she is severely hypothyroid at this time. Constitutional: other (Diffuse achy and myalgias) ENT: no complaints Respiratory: no complaints Cardiovascular: no complaints Gastrointestinal: no complaints Past Medical History Medical History: hypothyroid, other (Sickle cell trait; possible fibromyalgia; ITP idiopathic; positive SANJAY; history of pulmonary embolism with IVC filter x1; chronic pain syndrome) Home Meds Reported Medications Cholecalciferol* (Vitamin D3*) 1,000 Unit Tablet, 1000 UNIT PO DAILY, TAB 11/08/18 Buprenorphine (Butrans) 1 Each Patch.tdwk, 1 EACH TD Q FRI 09/17/18 Levothyroxine Sodium* (Levothyroxine Sodium*) 200 Mcg Tablet, 200 MCG PO BEFORE BREAKFAST, #30 TAB 09/17/18 Oxycodone HCl/Acetaminophen (Oxycodone-Acetaminophen 10-325) 1 Each Tablet, 1 EACH PO TID, TAB 09/17/18 Ondansetron Hcl* (Zofran*) 4 Mg Tab, 4 MG PO Q6H PRN for NAUSEA AND OR VOMITING, TAB 09/17/18 Medications Home medications were levothyroxine 225 mcg a day for the last 3 months, otherwise see the notes from our intake people from the emergency room Current Medications Cholecalciferol (Vitamin D) 1,000 unit DAILY PO Last administered on 12/14/18at 08:15; Admin Dose 1,000 UNIT; Start 12/14/18 at 09:00 IV Flush (NS 3 ml) 3 ml PER PROTOCOL IV ; Start 12/13/18 at 17:30 Ondansetron HCl (Zofran Inj) 4 mg Q6H PRN IV NAUSEA/VOMITING Last administered on 12/14/18at 08:05; Admin Dose 4 MG; Start 12/13/18 at 17:30 Acetaminophen (Tylenol Tab) 650 mg Q6H PRN PO .PAIN 1-3 OR TEMP; Start 12/13/18 at 17:30 Docusate Sodium (Colace) 100 mg Q12H PRN PO .CONSTIPATION; Start 12/13/18 at 17:30 Magnesium Hydroxide (Milk Of Mag) 30 ml DAILY PRN PO .CONSTIPATION; Start 12/13/18 at 17:30 Bisacodyl (Dulcolax Supp) 10 mg DAILY PRN [place] .CONSTIPATION; Start 12/13/18 at 17:30 Diphenhydramine HCl (Benadryl) 50 mg Q6H PRN PO ITCHING Last administered on 12/14/18at 08:15; Admin Dose 50 MG; Start 12/13/18 at 17:30 Cyclobenzaprine HCl (Flexeril) 10 mg TID PRN PO MUSCLE SPASMS Last administered on 12/14/18at 14:13; Admin Dose 10 MG; Start 12/13/18 at 17:30 Immune Globulin 60 gm/Immune Globulin 5 gm/ Device 650 ml @ 108.333 mls/hr Q24H IVPB Last administered on 12/13/18at 20:05; Admin Dose 108.333 MLS/HR; Start 12/13/18 at 19:30; Status Hold Hydromorphone HCl (Dilaudid) 1 mg Q3H PRN IV PAIN 7-10 Last administered on 12/14/18at 18:28; Admin Dose 1 MG; Start 12/14/18 at 02:00 Sodium Chloride 1,000 ml @ 100 mls/hr Q10H IV Last administered on 12/14/18at 13:14; Admin Dose 100 MLS/HR; Start 12/14/18 at 11:30 Oxycodone/ Acetaminophen (Endocet (10/ 325)) 1 tab Q4H PRN PO PAIN LEVEL 1-3; Start 12/14/18 at 14:30 Oxycodone/ Acetaminophen (Endocet (10/ 325)) 2 tab Q4H PRN PO MODERATE PAIN LEVEL 4-6 Last administered on 12/14/18at 17:21; Admin Dose 2 TAB; Start 12/14/18 at 14:30 Levothyroxine Sodium (Synthroid) 300 mcg BEFORE BREAKFAST PO ; Start 12/15/18 at 07:00; Status UNV Levothyroxine Sodium (Synthroid Iv) 300 mcg ONCE ONCE IV ; Start 12/14/18 at 19:00; Stop 12/14/18 at 19:01; Status UNV Liothyronine Sodium (Cytomel) 5 mcg DAILY PO ; Start 12/15/18 at 09:00; Status UNV Allergies: Coded Allergies: immune globulin,gamma (IgG) human (Verified Adverse Reaction, Mild, HYPOTENSION, 12/13/18) PATIENT HAS RECEIVED IVIG IN THE PAST. MONITOR BP IF GIVEN Past Surgical History Past Surgical Hx: other (Status post x1; status post IVC filter; status post splenectomy) Family History Significant Family History: no pertinent family hx Social History Alcohol Use: none Smoking Status: Never smoker Drug Use: none Exam/Review of Systems Exam Vitals Vital Signs Date Temp Pulse Resp B/P (MAP) Pulse Ox O2 O2 Flow FiO2 Time Delivery Rate 12/14/18 98.4 61 20 109/56 98 Room Air 15:06 (73) Intake and Output 12/13/18 12/13/18 12/14/18 1515:00 23:00 07:00 IntakeIntake Total 1700 ml BalanceBalance 1700 ml Constitutional: alert, oriented Head: normocephalic, atraumatic Eyes: other (Lateral eyebrows are lost) Neck: thyromegaly Gastrointestinal: soft, nl liver, spleen, non-tender Skin: other (Thickened and cool to the touch) Results Result Diagram: 12/14/18 1615 12/14/18 0558 Results 24hrs Laboratory Tests Test 12/14/18 05:58 12/14/18 16:15 White Blood Count 6.6 5.1 # Red Blood Count 2.53 #L 2.66 L Hemoglobin 7.8 #L 8.2 L Hematocrit 23.6 #L 25.0 L Mean Corpuscular Volume 93.3 94.0 Mean Corpuscular Hemoglobin 30.8 30.8 Mean Corpuscular Hemoglobin Concent 33.1 32.8 Red Cell Distribution Width 14.1 13.8 Platelet Count 102 #L 97 L Mean Platelet Volume 10.7 H 11.3 H Immature Granulocytes % 0.300 0.600 H Neutrophils % 65.0 52.3 Lymphocytes % 24.1 36.1 Monocytes % 7.4 7.7 Eosinophils % 2.7 2.9 Basophils % 0.5 0.4 Nucleated Red Blood Cells % 0.0 0.0 Immature Granulocytes # 0.020 0.030 Neutrophils # 4.3 2.7 Lymphocytes # 1.6 1.8 Monocytes # 0.5 0.4 Eosinophils # 0.2 0.2 Basophils # 0.0 0.0 Nucleated Red Blood Cells # 0.0 0.0 Sodium Level 142 Potassium Level 4.2 Chloride Level 107 Carbon Dioxide Level 27 Anion Gap 8 Blood Urea Nitrogen 12 Creatinine 1.12 H Est Glomerular Filtrat Rate mL/min > 60 Glucose Level 82 Calcium Level 8.8 Magnesium Level 2.0 Total Bilirubin 0.4 Direct Bilirubin 0.00 Indirect Bilirubin 0.4 Aspartate Amino Transf (AST/SGOT) 29 Alanine Aminotransferase (ALT/SGPT) 12 L Alkaline Phosphatase 56 Total Protein 9.5 H Albumin 4.0 Globulin 5.50 H Albumin/Globulin Ratio 0.72 Thyroid Stimulating Hormone (TSH) 374.000 H Free Thyroxine 0.15 L Medications Medication Current Medications Cholecalciferol (Vitamin D) 1,000 unit DAILY PO Last administered on 12/14/18 08:15; Admin Dose 1,000 UNIT; Start 12/14/18 at 09:00 IV Flush (NS 3 ml) 3 ml PER PROTOCOL IV ; Start 12/13/18 at 17:30 Ondansetron HCl (Zofran Inj) 4 mg Q6H PRN IV NAUSEA/VOMITING Last administered on 12/14/18at 08:05; Admin Dose 4 MG; Start 12/13/18 at 17:30 Acetaminophen (Tylenol Tab) 650 mg Q6H PRN PO .PAIN 1-3 OR TEMP; Start 12/13/18 at 17:30 Docusate Sodium (Colace) 100 mg Q12H PRN PO .CONSTIPATION; Start 12/13/18 at 17:30 Magnesium Hydroxide (Milk Of Mag) 30 ml DAILY PRN PO .CONSTIPATION; Start 12/13/18 at 17:30 Bisacodyl (Dulcolax Supp) 10 mg DAILY PRN [place] .CONSTIPATION; Start 12/13/18 at 17:30 Diphenhydramine HCl (Benadryl) 50 mg Q6H PRN PO ITCHING Last administered on 12/14/18at 08:15; Admin Dose 50 MG; Start 12/13/18 at 17:30 Cyclobenzaprine HCl (Flexeril) 10 mg TID PRN PO MUSCLE SPASMS Last administered on 12/14/18at 14:13; Admin Dose 10 MG; Start 12/13/18 at 17:30 Immune Globulin 60 gm/Immune Globulin 5 gm/ Device 650 ml @ 108.333 mls/hr Q24H IVPB Last administered on 12/13/18at 20:05; Admin Dose 108.333 MLS/HR; Start 12/13/18 at 19:30; Status Hold Hydromorphone HCl (Dilaudid) 1 mg Q3H PRN IV PAIN 7-10 Last administered on 12/14/18at 18:28; Admin Dose 1 MG; Start 12/14/18 at 02:00 Sodium Chloride 1,000 ml @ 100 mls/hr Q10H IV Last administered on 12/14/18at 13:14; Admin Dose 100 MLS/HR; Start 12/14/18 at 11:30 Oxycodone/ Acetaminophen (Endocet (10/ 325)) 1 tab Q4H PRN PO PAIN LEVEL 1-3; Start 12/14/18 at 14:30 Oxycodone/ Acetaminophen (Endocet (10/ 325)) 2 tab Q4H PRN PO MODERATE PAIN LEVEL 4-6 Last administered on 12/14/18at 17:21; Admin Dose 2 TAB; Start 12/14/18 at 14:30 Levothyroxine Sodium (Synthroid) 300 mcg BEFORE BREAKFAST PO ; Start 12/15/18 at 07:00; Status UNV Levothyroxine Sodium (Synthroid Iv) 300 mcg ONCE ONCE IV ; Start 12/14/18 at 19:00; Stop 12/14/18 at 19:01; Status UNV Liothyronine Sodium (Cytomel) 5 mcg DAILY PO ; Start 12/15/18 at 09:00; Status TAMIKO NI MD Dec 14, 2018 19:23
[2018-12-14] MEDS ORDERED: LEVOTHYROXINE 100 MCG VIAL IV SCH (20:00)
[2018-12-14] MEDS ORDERED: LEVOTHYROXINE 200 MCG VIAL IV SCH (20:00)
[2018-12-14] MEDS: DIPHENHYDRAMINE 50 MG INJ IV PRN (21:33)
[2018-12-15] MEDS: HYDROmorphONE 1 MG/ML SYG IV PRN ×7 (00:38→23:41)
[2018-12-15] MEDS: DIPHENHYDRAMINE 50 MG INJ IV PRN ×8 (01:12→23:41)
[2018-12-15 03:30] VITALS: BP 118/61; PULSE 61; RESP 18
[2018-12-15] MEDS: LEVOTHYROXINE 100 MCG TAB PO SCH (06:49)
[2018-12-15] MEDS ORDERED: LEVOTHYROXINE 100 MCG TAB PO SCH (07:00)
[2018-12-15] MEDS ORDERED: LEVOTHYROXINE 125 MCG TAB PO SCH (07:00)
[2018-12-15 07:34] VITALS: BP 96/61; PULSE 66; RESP 20
[2018-12-15] MEDS: CHOLECALCIFEROL 1,000 UNIT TAB PO SCH (07:47)
[2018-12-15] MEDS: LIOTHYRONINE 5 MCG TAB PO SCH (10:45)
[2018-12-15 10:56] VITALS: BP 122/81; PULSE 76; RESP 20
--- NOTE | 2018-12-15 11:09 | PN ---
Date/Time of Note Date/Time of Note DATE: 12/15/18 TIME: 11:06 Subjective Doing well. No new complaints. Objective Vitals Vital Signs Date Temp Pulse Resp B/P (MAP) Pulse Ox O2 O2 Flow FiO2 Time Delivery Rate 12/15/18 98.4 76 20 122/81 100 Room Air 10:56 (95) Intake and Output 12/14/18 12/14/18 12/15/18 1515:00 23:00 07:00 IntakeIntake Total 120 ml 960 ml BalanceBalance 120 ml 960 ml Clear to auscultation bilaterally Regular rate and rhythm Soft nontender nondistended normoactive bowel sounds No edema Nonfocal Results Result Diagram: 12/15/1845 12/15/1845 Medications Medications Current Medications Cholecalciferol (Vitamin D) 1,000 unit DAILY PO Last administered on 12/15/18at 07:47; Admin Dose 1,000 UNIT; Start 12/14/18 at 09:00 IV Flush (NS 3 ml) 3 ml PER PROTOCOL IV ; Start 12/13/18 at 17:30 Ondansetron HCl (Zofran Inj) 4 mg Q6H PRN IV NAUSEA/VOMITING Last administered on 12/14/18at 08:05; Admin Dose 4 MG; Start 12/13/18 at 17:30 Acetaminophen (Tylenol Tab) 650 mg Q6H PRN PO .PAIN 1-3 OR TEMP; Start 12/13/18 at 17:30 Docusate Sodium (Colace) 100 mg Q12H PRN PO .CONSTIPATION; Start 12/13/18 at 17:30 Magnesium Hydroxide (Milk Of Mag) 30 ml DAILY PRN PO .CONSTIPATION; Start 12/13/18 at 17:30 Bisacodyl (Dulcolax Supp) 10 mg DAILY PRN [place] .CONSTIPATION; Start 12/13/18 at 17:30 Diphenhydramine HCl (Benadryl) 50 mg Q6H PRN PO ITCHING Last administered on 12/14/18at 08:15; Admin Dose 50 MG; Start 12/13/18 at 17:30 Cyclobenzaprine HCl (Flexeril) 10 mg TID PRN PO MUSCLE SPASMS Last administered on 12/14/18at 19:54; Admin Dose 10 MG; Start 12/13/18 at 17:30 Immune Globulin 60 gm/Immune Globulin 5 gm/ Device 650 ml @ 108.333 mls/hr Q24H IVPB Last administered on 12/13/18 20:05; Admin Dose 108.333 MLS/HR; Start 12/13/18 at 19:30; Stop 12/16/18 at 01:29 Hydromorphone HCl (Dilaudid) 1 mg Q3H PRN IV PAIN 7-10 Last administered on 12/15/18 10:46; Admin Dose 1 MG; Start 12/14/18 at 02:00 Sodium Chloride 1,000 ml @ 100 mls/hr Q10H IV Last administered on 12/14/18 21:37; Admin Dose 100 MLS/HR; Start 12/14/18 at 11:30 Oxycodone/ Acetaminophen (Endocet (10/ 325)) 1 tab Q4H PRN PO PAIN LEVEL 1-3; Start 12/14/18 at 14:30 Oxycodone/ Acetaminophen (Endocet (10/ 325)) 2 tab Q4H PRN PO MODERATE PAIN LEVEL 4-6 Last administered on 12/14/18at 17:21; Admin Dose 2 TAB; Start 12/14/18 at 14:30 Levothyroxine Sodium (Synthroid) 300 mcg BEFORE BREAKFAST PO Last administered on 12/15/18 06:49; Admin Dose 300 MCG; Start 12/15/18 at 07:00 Liothyronine Sodium (Cytomel) 5 mcg DAILY PO Last administered on 12/15/18 10:45; Admin Dose 5 MCG; Start 12/15/18 at 09:00 Diphenhydramine HCl (Benadryl) 25 mg Q3 PRN IV ITCHING Last administered on 12/15/18 10:46; Admin Dose 25 MG; Start 12/14/18 at 20:30 VTE Prophylaxis Risk score (from Nsg)>0 risk: 1 SCD applied (from Nsg): No SCD contraindication: low risk/ambulating Lines/Catheters IV Catheter Type: Saline Lock Taylor in Place: No Assessment/Plan Assessment/Plan 33-year-old female with ITP and recurrent thrombocytopenia. Patient is a status post 1 dose of IVIG. Platelet count is slowly decreasing Sickle cell anemia, stable Chronic pain due to sickle cell Hypothyroidism with markedly elevated TSH and suppressed T4 Repeat IVIG Monitor CBC Continue thyroid supplement Endocrine follow-up Discharge planning in [facility]ORI Montemayor MD Dec 15, 2018 11:08
[2018-12-15] MEDS: SOD CHLORIDE 0.9% 1,000 ML IV SCH ×2 (14:00→17:30)
[2018-12-15] MEDS ORDERED: CYANOCOBALAMIN 1000 MCG INJ IM ONE (14:30)
--- NOTE | 2018-12-15 14:33 | CONS ---
Assessment/Plan Assessment/Plan Problems: (1) Hypothyroid Status: Chronic Comment: Patient is tolerating her treatment and is improving. I would need to see her as an outpatient in roughly 6 weeks to verify her dosing schedule. I have reinforced with her how to take the medications which she was able to teach back to me. 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 Please note the patient has a low normal B12 level will go ahead and replete this (4) Migraine Status: Acute Comment: Consider topiramate therapy for this patient as an outpatient Qualifiers: Migraine type: without aura Status migrainosus presence: without status migrainosus Intractability: not intractable Qualified Codes: G43.009 - Migraine without aura, not intractable, without status migrainosus Consultation Date/Type/Reason Admit Date/Time Dec 13, 2018 at 17:14 Initial Consult Date 12/14/18 Type of Consult Endocrinology Reason for Consultation Antibody positive hypothyroidism; B12 deficiency; sickle cell trait; ITP Requesting Provider: VEL ALTAMIRANO Date/Time of Note DATE: 12/15/18 TIME: 14:31 24 HR Interval Summary Free Text/Dictation Patient reports she is doing relatively well today although her platelet counts have her a bit concerned Constitutional: no complaints Detailed Summary Endocrine: no complaints Exam/Review of Systems Exam Vitals Vital Signs Date Temp Pulse Resp B/P (MAP) Pulse Ox O2 O2 Flow FiO2 Time Delivery Rate 12/15/18 98.4 76 20 122/81 100 Room Air 10:56 (95) Intake and Output 12/14/18 12/14/18 12/15/18 1414:59 22:59 06:59 IntakeIntake Total 120 ml 960 ml BalanceBalance 120 ml 960 ml Exam Patient appears to be more comfortable today Constitutional: alert, oriented Respiratory: clear to auscultation, normal air movement Cardiovascular: regular rate and rhythm, nl pulses Results Result Diagram: 12/15/18 0645 12/15/18 0645 Results 24hrs Laboratory Tests Test 12/14/18 16:15 12/15/18 06:45 White Blood Count 5.1 # 5.6 Red Blood Count 2.66 L 2.75 L Hemoglobin 8.2 L 8.4 L Hematocrit 25.0 L 24.8 L Mean Corpuscular Volume 94.0 90.2 Mean Corpuscular Hemoglobin 30.8 30.5 Mean Corpuscular Hemoglobin Concent 32.8 33.9 Red Cell Distribution Width 13.8 13.7 Platelet Count 97 L 67 #L Mean Platelet Volume 11.3 H 11.7 H Immature Granulocytes % 0.600 H 0.400 Neutrophils % 52.3 52.4 Lymphocytes % 36.1 34.1 Monocytes % 7.7 10.6 Eosinophils % 2.9 2.0 Basophils % 0.4 0.5 Nucleated Red Blood Cells % 0.0 0.0 Immature Granulocytes # 0.030 0.020 Neutrophils # 2.7 2.9 Lymphocytes # 1.8 1.9 Monocytes # 0.4 0.6 Eosinophils # 0.2 0.1 Basophils # 0.0 0.0 Nucleated Red Blood Cells # 0.0 0.0 Vitamin B12 Level 276 Hepatitis B Surface Antigen NEGATIVE Hepatitis C Antibody REACTIVE H Sodium Level 143 Potassium Level 3.6 Chloride Level 111 H Carbon Dioxide Level 24 Anion Gap 8 Blood Urea Nitrogen 6 L Creatinine 1.03 H Est Glomerular Filtrat Rate mL/min > 60 Glucose Level 130 # Calcium Level 8.3 L Magnesium Level 1.8 Medications Medication Current Medications Cholecalciferol (Vitamin D) 1,000 unit DAILY PO Last administered on 12/15/18at 07:47; Admin Dose 1,000 UNIT; Start 12/14/18 at 09:00 IV Flush (NS 3 ml) 3 ml PER PROTOCOL IV ; Start 12/13/18 at 17:30 Ondansetron HCl (Zofran Inj) 4 mg Q6H PRN IV NAUSEA/VOMITING Last administered on 12/14/18at 08:05; Admin Dose 4 MG; Start 12/13/18 at 17:30 Acetaminophen (Tylenol Tab) 650 mg Q6H PRN PO .PAIN 1-3 OR TEMP; Start 12/13/18 at 17:30 Docusate Sodium (Colace) 100 mg Q12H PRN PO .CONSTIPATION; Start 12/13/18 at 17:30 Magnesium Hydroxide (Milk Of Mag) 30 ml DAILY PRN PO .CONSTIPATION; Start 12/13/18 at 17:30 Bisacodyl (Dulcolax Supp) [address] .CONSTIPATION; Start 12/13/18 at 17:30 Diphenhydramine HCl (Benadryl) 50 mg Q6H PRN PO ITCHING Last administered on 12/14/18 08:15; Admin Dose 50 MG; Start 12/13/18 at 17:30 Cyclobenzaprine HCl (Flexeril) 10 mg TID PRN PO MUSCLE SPASMS Last administered on 12/14/18 19:54; Admin Dose 10 MG; Start 12/13/18 at 17:30 Immune Globulin 60 gm/Immune Globulin 5 gm/ Device 650 ml @ 108.333 mls/hr Q24H IVPB Last administered on 12/13/18 20:05; Admin Dose 108.333 MLS/HR; Start 12/13/18 at 19:30; Stop 12/16/18 at 01:29 Hydromorphone HCl (Dilaudid) 1 mg Q3H PRN IV PAIN 7-10 Last administered on 12/15/18 14:03; Admin Dose 1 MG; Start 12/14/18 at 02:00 Sodium Chloride 1,000 ml @ 100 mls/hr Q10H IV Last administered on 12/14/18 21:37; Admin Dose 100 MLS/HR; Start 12/14/18 at 11:30 Oxycodone/ Acetaminophen (Endocet (10/ 325)) 1 tab Q4H PRN PO PAIN LEVEL 1-3; Start 12/14/18 at 14:30 Oxycodone/ Acetaminophen (Endocet (10/ 325)) 2 tab Q4H PRN PO MODERATE PAIN LEVEL 4-6 Last administered on 12/14/18 17:21; Admin Dose 2 TAB; Start 12/14/18 at 14:30 Levothyroxine Sodium (Synthroid) 300 mcg BEFORE BREAKFAST PO Last administered on 12/15/18 06:49; Admin Dose 300 MCG; Start 12/15/18 at 07:00 Liothyronine Sodium (Cytomel) 5 mcg DAILY PO Last administered on 12/15/18 10:45; Admin Dose 5 MCG; Start 12/15/18 at 09:00 Diphenhydramine HCl (Benadryl) 25 mg Q3 PRN IV ITCHING Last administered on 12/15/18at 14:03; Admin Dose 25 MG; Start 12/14/18 at 20:30 Cyanocobalamin (Vitamin B12 Inj) 1,000 mcg ONCE ONCE IM ; Start 12/15/18 at 14:30; Stop 12/15/18 at 14:31; Status UNV Cyanocobalamin (Vitamin B12) 1,000 mcg DAILY PO ; Start 12/16/18 at 09:00; Status UNV TAMIKO TATE MD Dec 15, 2018 14:33
[2018-12-15 15:29] VITALS: BP 112/74; PULSE 64; RESP 20
[2018-12-15 19:31] VITALS: BP 110/57; PULSE 68; RESP 18
[2018-12-15] MEDS: OXYCODONE/ACETAMINOPHEN (10/325) TAB PO PRN (21:52)
[2018-12-15] MEDS: DIPHENHYDRAMINE 50 MG CAP PO PRN (21:52)
[2018-12-15] MEDS: GLY IVPB SCH (22:44)
[2018-12-15] MEDS: EVAC CONTAINER IVPB SCH (22:44)
[2018-12-15] MEDS: IGA AVG IVPB SCH (22:44)
[2018-12-15] MEDS: IMMUNE GLOBUL IVPB SCH (22:44)
[2018-12-15] MEDS: IMMUNE GLOBULIN IVPB SCH (22:44)
[2018-12-15 23:23] VITALS: BP 117/79; PULSE 63; RESP 18
[2018-12-16] MEDS: SOD CHLORIDE 0.9% 1,000 ML IV SCH ×3 (03:30→23:30)
[2018-12-16 03:31] VITALS: BP 120/85; PULSE 64; RESP 18
[2018-12-16] MEDS: HYDROmorphONE 1 MG/ML SYG IV PRN ×6 (03:37→21:31)
[2018-12-16] MEDS: DIPHENHYDRAMINE 50 MG INJ IV PRN ×3 (04:30→12:30)
[2018-12-16] MEDS: LEVOTHYROXINE 100 MCG TAB PO SCH (06:53)
[2018-12-16 07:56] VITALS: BP 117/74; PULSE 62; RESP 20
[2018-12-16] MEDS: CHOLECALCIFEROL 1,000 UNIT TAB PO SCH (08:57)
[2018-12-16] MEDS: LIOTHYRONINE 5 MCG TAB PO SCH (08:57)
[2018-12-16] MEDS: CYANOCOBALAMIN 500 MCG TAB PO SCH (08:58)
--- NOTE | 2018-12-16 11:17 | PN ---
Date/Time of Note Date/Time of Note DATE: 12/16/18 TIME: 11:16 Subjective Doing well. Pain is well controlled. No bleeding episodes. Objective Vitals Vital Signs Date Temp Pulse Resp B/P (MAP) Pulse Ox O2 O2 Flow FiO2 Time Delivery Rate 12/16/18 98.0 62 20 117/74 100 Room Air 07:56 (88) Intake and Output 12/15/18 12/15/18 12/16/18 1515:00 23:00 07:00 IntakeIntake Total 480 ml 1440 ml BalanceBalance 480 ml 1440 ml Clear to auscultation bilaterally Regular rate and rhythm Soft nontender nondistended normoactive bowel sounds No edema Nonfocal Results Result Diagram: 12/16/18 0637 12/15/18 0645 Medications Medications Current Medications Cholecalciferol (Vitamin D) 1,000 unit DAILY PO Last administered on 12/16/18at 08:57; Admin Dose 1,000 UNIT; Start 12/14/18 at 09:00 IV Flush (NS 3 ml) 3 ml PER PROTOCOL IV ; Start 12/13/18 at 17:30 Ondansetron HCl (Zofran Inj) 4 mg Q6H PRN IV NAUSEA/VOMITING Last administered on 12/14/18at 08:05; Admin Dose 4 MG; Start 12/13/18 at 17:30 Acetaminophen (Tylenol Tab) 650 mg Q6H PRN PO .PAIN 1-3 OR TEMP; Start 12/13/18 at 17:30 Docusate Sodium (Colace) 100 mg Q12H PRN PO .CONSTIPATION; Start 12/13/18 at 17:30 Magnesium Hydroxide (Milk Of Mag) 30 ml DAILY PRN PO .CONSTIPATION; Start 12/13/18 at 17:30 Bisacodyl (Dulcolax Supp) 10 mg DAILY PRN [place] .CONSTIPATION; Start 12/13/18 at 17:30 Diphenhydramine HCl (Benadryl) 50 mg Q6H PRN PO ITCHING Last administered on 12/15/18at 21:52; Admin Dose 50 MG; Start 12/13/18 at 17:30 Cyclobenzaprine HCl (Flexeril) 10 mg TID PRN PO MUSCLE SPASMS Last administered on 12/14/18at 19:54; Admin Dose 10 MG; Start 12/13/18 at 17:30 Hydromorphone HCl (Dilaudid) 1 mg Q3H PRN IV PAIN 7-10 Last administered on 12/16/18 08:58; Admin Dose 1 MG; Start 12/14/18 at 02:00 Sodium Chloride 1,000 ml @ 100 mls/hr Q10H IV Last administered on 12/15/18 14:00; Admin Dose 100 MLS/HR; Start 12/14/18 at 11:30 Oxycodone/ Acetaminophen (Endocet (10/ 325)) 1 tab Q4H PRN PO PAIN LEVEL 1-3; Start 12/14/18 at 14:30 Oxycodone/ Acetaminophen (Endocet (10/ 325)) 2 tab Q4H PRN PO MODERATE PAIN LEVEL 4-6 Last administered on 12/15/18at 21:52; Admin Dose 2 TAB; Start 12/14/18 at 14:30 Levothyroxine Sodium (Synthroid) 300 mcg BEFORE BREAKFAST PO Last administered on 12/16/18 06:53; Admin Dose 300 MCG; Start 12/15/18 at 07:00 Liothyronine Sodium (Cytomel) 5 mcg DAILY PO Last administered on 12/16/18 08:57; Admin Dose 5 MCG; Start 12/15/18 at 09:00 Diphenhydramine HCl (Benadryl) 25 mg Q3 PRN IV ITCHING Last administered on 12/16/18 08:58; Admin Dose 25 MG; Start 12/14/18 at 20:30 Cyanocobalamin (Vitamin B12) 1,000 mcg DAILY PO Last administered on 12/16/18 08:58; Admin Dose 1,000 MCG; Start 12/16/18 at 09:00 Immune Globulin 60 gm/Immune Globulin 5 gm/ Device 650 ml @ 108.333 mls/hr ONCE ONCE IVPB ; Start 12/16/18 at 12:00; Stop 12/16/18 at 17:59 VTE Prophylaxis Risk score (from Nsg)>0 risk: 2 SCD applied (from Nsg): No SCD contraindication: low risk/ambulating Lines/Catheters IV Catheter Type: Saline Lock Taylor in Place: No Assessment/Plan Assessment/Plan 33-year-old female with thrombocytopenia due to ITP, on IVIG Sickle cell anemia Chronic pain due to sickle cell Repeat IVIG today Monitor CBC Discharge planning in [facility] if platelet count is stable TORI RASHID MD Dec 16, 2018 11:17
[2018-12-16 11:36] VITALS: BP 125/75; PULSE 63; RESP 20
[2018-12-16] MEDS ORDERED: GLY IVPB ONE (12:00)
[2018-12-16] MEDS ORDERED: IMMUNE GLOBULIN IVPB ONE (12:00)
[2018-12-16] MEDS ORDERED: IMMUNE GLOBUL IVPB ONE (12:00)
[2018-12-16] MEDS ORDERED: IGA AVG IVPB ONE (12:00)
[2018-12-16] MEDS ORDERED: EVAC CONTAINER IVPB ONE (12:00)
--- NOTE | 2018-12-16 15:08 | CONS ---
Assessment/Plan Assessment/Plan Problems: (1) Hypothyroid Status: Chronic Comment: On replacement. TSH can take up to 4 weeks or more to normalize. Patient to follow up with Dr. Aldrich as outpatient. 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 Exam/Review of Systems Exam Vitals Vital Signs Date Temp Pulse Resp B/P (MAP) Pulse Ox O2 O2 Flow FiO2 Time Delivery Rate 12/16/18 98.0 63 20 125/75 98 Room Air 11:36 (92) Intake and Output 12/15/18 12/15/18 12/16/18 1515:00 23:00 07:00 IntakeIntake Total 480 ml 1440 ml BalanceBalance 480 ml 1440 ml Constitutional: alert, oriented, well developed Neck: supple Respiratory: respirations Cardiovascular: regular rate and rhythm Gastrointestinal: soft Extremities: normal pulses, other (Right wrist at IV site tender and erythematous.) Results Result Diagram: 12/16/18 0637 12/15/18 0645 Results 24hrs Laboratory Tests Test 12/16/18 06:37 White Blood Count 5.6 Red Blood Count 2.45 L Hemoglobin 8.1 L Hematocrit 22.7 L Mean Corpuscular Volume 92.7 Mean Corpuscular Hemoglobin 33.1 H Mean Corpuscular Hemoglobin Concent 35.7 Red Cell Distribution Width 13.9 Platelet Count 60 L Mean Platelet Volume 12.6 H Immature Granulocytes % 1.100 H Neutrophils % 53.0 Lymphocytes % 33.7 Monocytes % 9.0 Eosinophils % 2.5 Basophils % 0.7 Nucleated Red Blood Cells % 0.0 Immature Granulocytes # 0.060 H Neutrophils # 3.0 Lymphocytes # 1.9 Monocytes # 0.5 Eosinophils # 0.1 Basophils # 0.0 Nucleated Red Blood Cells # 0.0 Medications Medication Current Medications Cholecalciferol (Vitamin D) 1,000 unit DAILY PO Last administered on 12/16/18 08:57; Admin Dose 1,000 UNIT; Start 12/14/18 at 09:00 IV Flush (NS 3 ml) 3 ml PER PROTOCOL IV ; Start 12/13/18 at 17:30 Ondansetron HCl (Zofran Inj) 4 mg Q6H PRN IV NAUSEA/VOMITING Last administered on 12/14/18 08:05; Admin Dose 4 MG; Start 12/13/18 at 17:30 Acetaminophen (Tylenol Tab) 650 mg Q6H PRN PO .PAIN 1-3 OR TEMP; Start 12/13/18 at 17:30 Docusate Sodium (Colace) 100 mg Q12H PRN PO .CONSTIPATION; Start 12/13/18 at 17:30 Magnesium Hydroxide (Milk Of Mag) 30 ml DAILY PRN PO .CONSTIPATION; Start 12/13/18 at 17:30 Bisacodyl (Dulcolax Supp) 10 mg DAILY PRN AL .CONSTIPATION; Start 12/13/18 at 17:30 Diphenhydramine HCl (Benadryl) 50 mg Q6H PRN PO ITCHING Last administered on 12/15/18 21:52; Admin Dose 50 MG; Start 12/13/18 at 17:30 Cyclobenzaprine HCl (Flexeril) 10 mg TID PRN PO MUSCLE SPASMS Last administered on 12/14/18 19:54; Admin Dose 10 MG; Start 12/13/18 at 17:30 Hydromorphone HCl (Dilaudid) 1 mg Q3H PRN IV PAIN 7-10 Last administered on 12/16/18 12:30; Admin Dose 1 MG; Start 12/14/18 at 02:00 Sodium Chloride 1,000 ml @ 100 mls/hr Q10H IV Last administered on 12/15/18 14:00; Admin Dose 100 MLS/HR; Start 12/14/18 at 11:30 Oxycodone/ Acetaminophen (Endocet (10/ 325)) 1 tab Q4H PRN PO PAIN LEVEL 1-3; Start 12/14/18 at 14:30 Oxycodone/ Acetaminophen (Endocet (10/ 325)) 2 tab Q4H PRN PO MODERATE PAIN LEVEL 4-6 Last administered on 12/15/18 21:52; Admin Dose 2 TAB; Start 12/14/18 at 14:30 Levothyroxine Sodium (Synthroid) 300 mcg BEFORE BREAKFAST PO Last administered on 12/16/18 06:53; Admin Dose 300 MCG; Start 12/15/18 at 07:00 Liothyronine Sodium (Cytomel) 5 mcg DAILY PO Last administered on 12/16/18 08:57; Admin Dose 5 MCG; Start 12/15/18 at 09:00 Diphenhydramine HCl (Benadryl) 25 mg Q3 PRN IV ITCHING Last administered on 12/16/18at 12:30; Admin Dose 25 MG; Start 12/14/18 at 20:30 Cyanocobalamin (Vitamin B12) 1,000 mcg DAILY PO Last administered on 12/16/18 08:58; Admin Dose 1,000 MCG; Start 12/16/18 at 09:00 Immune Globulin 60 gm/Immune Globulin 5 gm/ Device 650 ml @ 108.333 mls/hr ONCE ONCE IVPB Last administered on 12/16/18at 13:32; Admin Dose 108.333 MLS/HR; Start 12/16/18 at 12:00; Stop 12/16/18 at 17:59 BRIAN CORDERO MD Dec 16, 2018 15:08
[2018-12-16 15:26] VITALS: BP 126/79; PULSE 67; RESP 20
[2018-12-16] MEDS: ONDANSETRON 4 MG INJ IV PRN (18:15)
[2018-12-16 19:11] VITALS: BP 126/80; PULSE 65; RESP 18
[2018-12-17 00:34] VITALS: BP 124/83; PULSE 71; RESP 18
[2018-12-17] MEDS: HYDROmorphONE 1 MG/ML SYG IV PRN ×3 (01:43→09:07)
[2018-12-17 04:39] VITALS: BP 126/79; PULSE 92; RESP 18
[2018-12-17] MEDS: LEVOTHYROXINE 100 MCG TAB PO SCH (06:51)
[2018-12-17 07:21] VITALS: BP 102/60; PULSE 62; RESP 17
[2018-12-17] MEDS: LIOTHYRONINE 5 MCG TAB PO SCH (09:01)
[2018-12-17] MEDS: SOD CHLORIDE 0.9% 1,000 ML IV SCH (09:02)
[2018-12-17] MEDS: CYANOCOBALAMIN 500 MCG TAB PO SCH (09:02)
[2018-12-17] MEDS: CHOLECALCIFEROL 1,000 UNIT TAB PO SCH (09:02)
[2018-12-17] MEDS ORDERED: LIOT5TAB15 PO (10:55)
[2018-12-17] MEDS ORDERED: LEVO100T8 PO (10:55)
--- NOTE | 2018-12-17 10:56 | PDOCDIS ---
Discharge Instructions CONDITION [id number] Patient Condition: [id number] Good HOME CARE INSTRUCTIONS: [id number] Diet Instructions: [id number] Regular ACTIVITY: [id number] Activity Restrictions: [id number] No Restrictions FOLLOW UP/APPOINTMENTS Follow-up Plan pcp 1 week hematology 1 week endocrin 1 week TORI RASHID MD Dec 17, 2018 10:56
[2018-12-17] MEDS ORDERED: CYAN500T46 PO (11:03)
[2018-12-17 11:52] VITALS: BP 123/71; PULSE 75; RESP 18
--- NOTE | 2018-12-17 22:33 | DS ---
DATE OF ADMISSION: 12/13/2018 DATE OF DISCHARGE: 12/17/2018 DISCHARGE DIAGNOSES: 1. 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 2. Sickle cell anemia. 3. Hypothyroidism. 4. History of migraine headaches. 5. B12 deficiency. HOSPITAL COURSE: An 33-year-old after female with a history of ITP and sickle cell and anemia, presented to emergency room and diagnosed with thrombocytopenia. Initial platelet count was as low as 3000. The patient was seen in consultation by owner manager, ____. She received 1 unit of platelets as well as IVIG. Her baseline platelet count is 30,000 to 50,000. The patient had been refractory to steroids, splenectomy and rituximab. She received 2 doses of IVIG. She remained fairly asymptomatic during the hospitalization. Her hemoglobin remained stable. Repeat CBC was pen ding at the time of discharge. She is in a stable condition for discharge. Notably, she was also found to have profound hypothyroid ism with a TSH of 374 and a free T4 of 0.15 despite thyroid supplementation. She was seen in consult ation by Dr. Aldrich. Thyroid supplement was increased to 300 mcg daily. The patient needs a close fo llowup with mold injector and owner manager as outpatient. Vitamin B12 was also prescribed due to e vidence of B12 deficiency Dictated By: TORI TAYLOR/NTS Conf#: [id number] DID#: [id number] CC: VEL ALTAMIRANO MD; TAMIKO ALDRICH MD;*EndCC*
== END 2018-12-17 13:25 | disposition home or self-care (01) | DRG 813 ==
LOC: E/R 12:51 → TEL 17:14
PROVIDERS: ADMIT Internal Medicine; ATTEND Internal Medicine
PROC: 30233R1 Transfusion of Nonautologous Platelets into Peripheral Vein, Percutaneous Approach (ICD-10-PCS; principal; 2018-12-14)
DX: D69.3 Immune thrombocytopenic purpura (principal); M32.9 Systemic lupus erythematosus, unspecified; D57.1 Sickle-cell disease without crisis; E03.9 Hypothyroidism, unspecified; E53.8 Deficiency of other specified B group vitamins; Z86.711 Personal history of pulmonary embolism; G89.29 Other chronic pain; G43.009 Migraine without aura, not intractable, without status migrainosus
CPT/HCPCS: 36430; 80048; 80053; 82607; 83735; 84439; 84443; 85025; 85045; 85610; 85730; 86644; 86803; 86850; 86900; 86901; 86945; 87340; 96374; 96375; J1170; J1200; J1561; J2405; J3420; J7030; J7040; P9035

== ENCOUNTER 2018-12-28 06:23 | Inpatient (IN) | payer OTHER ==
[~2018-12-28] VITALS: Ht 167.6 cm; Wt 66.3 kg
[~2018-12-28 06:23] MED LIST changes: +CYAN500T46 PO; +LEVO100T8 PO; -LEVO200T6 PO; +LIOT5TAB15 PO
[2018-12-28] MEDS ORDERED: HYDROmorphONE 1 MG/ML SYG IV STA (07:29)
[2018-12-28] MEDS ORDERED: SOD CHLORIDE 0.9% 1,000 ML IV STA (07:29)
[2018-12-28] MEDS ORDERED: ONDANSETRON 4 MG INJ IV STA (07:29)
[2018-12-28] MEDS ORDERED: DIPHENHYDRAMINE 50 MG INJ IV ONE ×2 (07:30→09:00)
--- NOTE | 2018-12-28 07:33 | ERD ---
ER Documentation Chief Complaint Chief Complaint Pt sent for low platelet on blood drawn yesterday; bleeding from gum. HPI Very pleasant 33-year-old female history of sickle cell anemia with ITP history who presents to the emergency room for thrombocytopenia. The patient notes some blood with brushing of her teeth and bleeding from her gums. The patient had routine blood draw yesterday and was noted to have low platelets less than 10,000. The patient had recent hospitalization for platelets of 3000 requiring IVIG x2. Patient denies any falls or injuries, no headaches. She has her chronic lower extremity pain that is moderate and throbbing similar to her sickle cell pain crisis. She denies any fevers or chills, no chest pain, no shortness of breath. ROS All systems reviewed and are negative except as per history of present illness. Medications Home Meds Active Scripts Cyanocobalamin* (Vitamin B12*) 500 Mcg Tab, 1000 MCG PO DAILY for 30 Days, TAB 2 Refills Prov:TORI BRODERICK MD 12/17/18 Liothyronine Sodium (Cytomel) 5 Mcg Tab, 5 MCG PO DAILY for 30 Days, TAB 2 Refills Prov:TORI BRODERICK MD 12/17/18 Levothyroxine Sodium* (Levothyroxine Sodium*) 100 Mcg Tablet, 300 MCG PO BEFORE BREAKFAST for 30 Days, TAB 2 Refills Prov:TORI BRODERICK MD 12/17/18 Reported Medications Cholecalciferol* (Vitamin D3*) 1,000 Unit Tablet, 1000 UNIT PO DAILY, TAB 11/08/18 Buprenorphine (Butrans) 1 Each Patch.tdwk, 1 EACH TD Q FRI 09/17/18 Oxycodone HCl/Acetaminophen (Oxycodone-Acetaminophen 10-325) 1 Each Tablet, 1 EACH PO TID, TAB 09/17/18 Ondansetron Hcl* (Zofran*) 4 Mg Tab, 4 MG PO Q6H PRN for NAUSEA AND OR VOMITING, TAB 09/17/18 Allergies Allergies: Coded Allergies: immune globulin,gamma (IgG) human (Verified Adverse Reaction, Mild, HYPOTENSION, 12/13/18) PATIENT HAS RECEIVED IVIG IN THE PAST. MONITOR BP IF GIVEN PMhx/Soc History of Surgery: Yes (IVC FILTER (abd), C SEC X'S 1, SPLENECTOMY) Anesthesia Reaction: No Hx Neurological Disorder: No Hx Respiratory Disorders: Yes (Previous pulmonary embolism) Hx Cardiac Disorders: No Hx Alcohol Use: No Hx Substance Use: No Hx Tobacco Use: No Smoking Status: Never smoker FmHx Family History: No diabetes Physical Exam Vitals Vital Signs Date Temp Pulse Resp B/P (MAP) Pulse Ox O2 O2 Flow FiO2 Time Delivery Rate 12/28/18 98.0 76 16 90/66 (74) 100 Room Air 07:00 12/28/18 97.7 75 18 143/80 100 06:31 (101) Physical Exam General: Well developed, well nourished, no acute distress Head: Normocephalic, atraumatic. Eyes: Pupils equally reactive, EOM intact ENT: Moist mucous membranes Neck: Supple, no lymphadenopathy Respiratory: Lungs clear bilaterally, no distress Cardiovascular: RRR, no murmurs, rubs, or gallops Abdominal: Soft, non-tender, non-distended, no peritoneal signs : Deferred MSK: No edema, no unilateral swelling, 5/5 strength Neurologic: Alert and oriented, moving all extremities, normal speech, no focal weakness, no cerebellar signs Skin: No rash Psych: Normal mood Result Diagram: 12/28/18 0721 12/28/18 0721 Results 24 hrs Laboratory Tests Test 12/28/18 07:21 12/28/18 08:02 12/28/18 08:03 White Blood Count 7.9 10^3/ul Red Blood Count 2.21 10^6/ul Hemoglobin 7.0 g/dl Hematocrit 21.2 % Mean Corpuscular Volume 95.9 fl Mean Corpuscular Hemoglobin 31.7 pg Mean Corpuscular 33.0 g/dl Hemoglobin Concent Red Cell Distribution Width 21.1 % Platelet Count 2 10^3/UL Mean Platelet Volume fl Immature Granulocytes % 1.300 % Neutrophils % % Lymphocytes % % Monocytes % % Eosinophils % % Basophils % % Nucleated Red Blood Cells % 5.0 /100WBC Immature Granulocytes # 0.100 10^3/ul Neutrophils # 10^3/ul Lymphocytes # 10^3/ul Monocytes # 10^3/ul Eosinophils # 10^3/ul Basophils # 10^3/ul Nucleated Red Blood Cells # 10^3/ul Absolute Reticulocyte Count 0.187 X10^6 Percent Reticulocyte Count 8.5 % Prothrombin Time 12.7 Sec Prothrombin Time Ratio 1.0 INR International Normalized Ratio 0.94 Activated Partial Thromboplast 29.7 Sec Time Sodium Level 143 mmol/L Potassium Level 3.6 mmol/L Chloride Level 107 mmol/L Carbon Dioxide Level 28 mmol/L Anion Gap 8 Blood Urea Nitrogen 10 mg/dl Creatinine 0.98 mg/dl Est Glomerular Filtrat Rate mL/min > 60 mL/min Glucose Level 109 mg/dl Calcium Level 9.1 mg/dl Total Bilirubin 0.8 mg/dl Direct Bilirubin 0.00 mg/dl Indirect Bilirubin 0.8 mg/dl Aspartate Amino Transf (AST/SGOT) 34 IU/L Alanine 15 IU/L Aminotransferase (ALT/SGPT) Alkaline Phosphatase 71 IU/L Total Protein 10.9 g/dl Albumin 4.3 g/dl Globulin 6.60 g/dl Albumin/Globulin Ratio 0.65 Bedside Urine pH (LAB) 6.5 Bedside Urine Protein (LAB) Negative Bedside Urine Glucose (UA) Negative Bedside Urine Ketones (LAB) Negative Bedside Urine Blood Negative Bedside Urine Nitrite (LAB) Negative Bedside Urine Leukocyte Esterase Negative (L POC Beta HCG, Qualitative NEGATIVE Current Medications Medications Dose Sig/Navi Start Time Status Last (Trade) Ordered Route PRN Stop Time Admin Dose Reason Admin Sodium 1,000 ml @ Q1H STAT 12/28/18 DC 12/28/18 Chloride 1,000 mls/hr IV 07:29 07:42 12/28/18 08:28 1 mg ONCE STAT 12/28/18 DC 12/28/18 Hydromorphone IV 07:29 07:42 HCl 12/28/18 07:31 (Dilaudid) Ondansetron 4 mg ONCE STAT 12/28/18 DC 12/28/18 HCl (Zofran IV 07:29 07:42 Inj) 12/28/18 07:31 25 mg ONCE ONCE 12/28/18 DC 12/28/18 Diphenhydrami IV 07:30 07:42 ne HCl 12/28/18 07:31 (Benadryl) Sodium 0 ml @ 0 Q0M ONCE 12/28/18 DC Chloride mls/hr IV 07:56 12/28/18 07:58 Ondansetron 4 mg BRIDGE ORDER 12/28/18 HCl (Zofran PRN IV 09:00 Inj) NAUSEA/VOMITI 12/29/18 08:59 NG 650 mg ER BRIDGE 12/28/18 Acetaminophen PRN PO 09:00 (Tylenol .MILD PAIN 12/29/18 08:59 Tab) 1-3 OR TEMP Immune 65 gm ONCE STAT 12/28/18 DC Globulin IV 08:40 (Carimune Nf) 12/28/18 08:44 Procedures/MDM LAB INTERPRETATION: I reviewed the laboratory testing and it shows hemoglobin of 7, platelets of 2000 MEDICAL DECISION MAKING: The patient's presentation is likely consistent with an exacerbation of ITP. The patient also has mild pain consistent with her chronic sickle cell anemia. Patient has no signs or symptoms concerning for traumatic injury. No indication for CT imaging of the head or abdomen pelvis. The patient is having some mild pain related to her sickle cell anemia would benefit from fluids and pain medication. The patient likely requires hospitalization for IVIG. I discussed with the patient and/or family the risks, benefits, alternatives of blood transfusion. This includes allergic reaction and infections including HIV and hepatitis. The patient and/or family were able to verbalize these risks, stated understanding. A document has been signed and placed in the chart. ER COURSE: * Patient given IV fluids Dilaudid Zofran Benadryl * Patient's platelets are 2000. No evidence of spontaneous bleeding. * I discussed the case with recent hematology oncologist Dr. Oro who recommends transfusion of 1 unit of platelets. Additionally the patient will be boarding in the emergency room and earlier IVIG would be better. I discussed dosing. She recommends 1 g/kg. We have discussed this with pharmacy who will arrange for rate as the patient has had some mild adverse reaction in the past. She has pretreated with Benadryl. * Patient will be admitted. She is unstable for transfer given low platelets and risk of transportation with those findings. * Continue to monitor the patient's hemoglobin. This point no indication for transfusion but if it dips below 7 and the patient become symptomatic transfusion may be necessary on an inpatient basis. Stat transfusion in the emergency room not necessary. CONSULTATION: Hematology oncologist as documented above DISPOSITION PLAN: Accepting care team and consultations: I discussed the current laboratory data, diagnostic imaging and emergency care provided. Admitting team: Dr. Broderick Admitting team indication: Insurance directed Departure Diagnosis: Primary Impression: ITP (idiopathic thrombocytopenic purpura) Additional Impressions: History of sickle cell anemia Sickle cell pain crisis Condition: Stable KEISHA MORRIS MD Dec 28, 2018 07:33
[2018-12-28] MEDS ORDERED: SOD CHLORIDE 0.9% 0 ML IV ONE (07:56)
[2018-12-28] MEDS ORDERED: IMMUNE GLOBULIN (HUMAN) 6 GM INJ IV STA (08:40)
[2018-12-28] MEDS ORDERED: ACETAMINOPHEN 325 MG TAB PO PRN (09:00)
[2018-12-28] MEDS ORDERED: ONDANSETRON 4 MG INJ IV PRN (09:00)
[2018-12-28] MEDS ORDERED: IGA AVG IVPB ONE (10:00)
[2018-12-28] MEDS ORDERED: [UNRECOGNIZED DRUG - OTHER] IVPB ONE (10:00)
[2018-12-28] MEDS ORDERED: IMMUNE GLOBUL IVPB ONE (10:00)
[2018-12-28] MEDS ORDERED: DIPHENHYDRAMINE 50 MG INJ IV PRN (10:00)
[2018-12-28] MEDS ORDERED: IMMUNE GLOBULIN IVPB ONE (10:00)
[2018-12-28] MEDS ORDERED: GLY IVPB ONE (10:00)
[2018-12-28 11:00] VITALS: BP 125/74; PULSE 60; RESP 18; Ht 167.6 cm; Wt 66.3 kg
[2018-12-28] MEDS ORDERED: morphine 2 MG INJ IV PRN (12:00)
[2018-12-28] MEDS ORDERED: ZOLPIDEM 5 MG TAB PO PRN (12:30)
[2018-12-28 13:07] VITALS: BP 119/78; PULSE 61
[2018-12-28 14:00] VITALS: BP 135/79; PULSE 72; RESP 18
[2018-12-28] MEDS: HYDROmorphONE 1 MG/ML SYG IV PRN ×3 (15:08→22:44)
--- NOTE | 2018-12-28 19:21 | CONS ---
Assessment/Plan Assessment/Plan Assessment/Plan (Daily) 33 yo F with refractory ITP # ITP - s/p 1u platelets - recommend IVIG 1g/kg/day x 2 days - recommend starting dexamethasone 40mg PO x 4 days (first dose can be in AM) - to start Tavalisse as an outpatient - daily CBC # anemia - transfuse for hemoglobin <7 - secondary to sickle cell disease # bone pain from sickle cell disease - dilaudid PRN - resume outpatient regimen on discharge (followed by pain management) - IV fluids Thank you for allowing me to participate in this patient's care. Consultation Date/Type/Reason Admit Date/Time Dec 28, 2018 at 08:34 Date of Consultation: Dec 28, 2018 Type of Consult Hematology-Oncology Consult Reason for Consultation ITP Date/Time of Note DATE: 12/28/18 TIME: 19:06 Hx of Present Illness 33 year old female with refractory ITP. She is followed by Dr. Holguin as an outpatient and is resistant to steroids, splenectomy and rituximab in the past. She responded to Promacta but there was concern of thromboembolic side effects. She was recently admitted for a platelet count of 3,000 and received IVIG with significant improvement. She was seen by Dr. Holguin and repeat blood work revealed a platelet count of 12,000 and she was told to present to the ED. Here platelets were 2,000 and she received 1u platelets and started on IVIG. Plan was to start dexamethasone 40mg x 4 days and Tavalisse as an outpatient. She endorses gum bleeding but no other bruising or bleeding issues. She has fatigue and mild bone pain. Constitutional: No no complaints, No improved, No chills, No diaphoresis, No disoriented, No febrile, No poor po, No requiring IVF, No requiring O2, No other Eyes: No no complaints, No pain, No discharge, No redness, No visual change, No other ENT: No no complaints, No bleeding, No pain, No congestion, No discharge, No dysphagia, No sore throat, No other Respiratory: No no complaints, No pain, No cough, No pleuritic pain, No shortness of breath, No sputum, No wheezing, No other Cardiovascular: No no complaints, No chest pain, No edema, No lightheadedness, No orthopenea, No palpitations, No paroxysmal nocturnal dyspnea, No other Gastrointestinal: No no complaints, No pain, No blood, No constipation, No decreased appetite, No diarrhea, No flatus, No nausea, No passing stool, No vomiting, No other Genitourinary: No no complaints, No bleeding, No dysuria, No discharge, No flank pain, No hematuria, No other Musculoskeletal: bone/joint pain Skin: No no complaints, No bruising, No erythema, No laceration, No pruritis, No rash, No skin lesions, No other Neurologic: No no complaints, No confusion, No dizziness, No focal-weakness, No headache, No syncope, No seizure, No other Endocrine: No no complaints, No polyuria, No polydypsia, No dry skin, No temp intolerance, No other Lymphatic: No no complaints, No adenopathy, No tender nodes, No lymphadema, No other Psychological: No no complaints, No nl mood/affect, No anxiety, No confusion, No depression, No suicidal, No other Immunologic: No no complaints, No immunodeficiency, No pruritis, No rhinitis, No urticaria, No other Past Medical History sickle cell disease ITP Home Meds Active Scripts Cyanocobalamin* (Vitamin B12*) 500 Mcg Tab, 1000 MCG PO DAILY for 30 Days, TAB 2 Refills Prov:TORI RASHID MD 12/17/18 Liothyronine Sodium (Cytomel) 5 Mcg Tab, 5 MCG PO DAILY for 30 Days, TAB 2 Refills Prov:TORI RASHID MD 12/17/18 Levothyroxine Sodium* (Levothyroxine Sodium*) 100 Mcg Tablet, 300 MCG PO BEFORE BREAKFAST for 30 Days, TAB 2 Refills Prov:TORI RASHID MD 12/17/18 Reported Medications Cholecalciferol* (Vitamin D3*) 1,000 Unit Tablet, 1000 UNIT PO DAILY, TAB 11/08/18 Buprenorphine (Butrans) 1 Each Patch.tdwk, 1 EACH TD Q FRI 09/17/18 Oxycodone HCl/Acetaminophen (Oxycodone-Acetaminophen 10-325) 1 Each Tablet, 1 EACH PO TID, TAB 09/17/18 Ondansetron Hcl* (Zofran*) 4 Mg Tab, 4 MG PO Q6H PRN for NAUSEA AND OR VOMITING, TAB 09/17/18 Medications Current Medications Acetaminophen (Tylenol Tab) 650 mg ER BRIDGE PRN PO .MILD PAIN 1-3 OR TEMP; Start 12/28/18 at 09:00; Stop 12/29/18 at 08:59 Zolpidem Tartrate (Ambien) 5 mg HS MAY REPEAT X 1 PRN PO INSOMNIA; Start 12/28/18 at 12:30 Ondansetron HCl (Zofran Inj) 4 mg Q4H PRN IV NAUSEA AND/OR VOMITING; Start 12/28/18 at 12:30 Hydromorphone HCl (Dilaudid) 1 mg Q3H PRN IV SEVERE PAIN LEVEL 7-10 Last administered on 12/28/18at 15:08; Admin Dose 1 MG; Start 12/28/18 at 15:00 Allergies: Coded Allergies: immune globulin,gamma (IgG) human (Verified Adverse Reaction, Mild, HYPOTENSION, 12/28/18) PATIENT HAS RECEIVED IVIG IN THE PAST. MONITOR BP IF GIVEN Past Surgical History splenectomy Past Surgical Hx: other Social History Smoking Status: Never smoker Drug Use: none Exam/Review of Systems Exam Vitals Vital Signs Date Temp Pulse Resp B/P (MAP) Pulse Ox O2 O2 Flow FiO2 Time Delivery Rate 12/28/18 97.9 72 18 135/79 100 14:00 (97) 12/28/18 Room Air 09:44 Constitutional: alert, oriented, well developed Psych: no complaints, nl mood/affect Eyes: nl conjunctiva, nl sclera ENMT: mucosa pink and moist Neck: supple Respiratory: clear to auscultation Cardiovascular: regular rate and rhythm Gastrointestinal: soft, non-tender Musculoskeletal: nl extremities to inspection Neurological: DIAGNOSTIC TECH II-XII intact Lymph: nl lymph nodes Results Result Diagram: 12/28/18 0721 12/28/18 0721 Results 24hrs Laboratory Tests Test 12/28/18 07:21 12/28/18 08:02 12/28/18 08:03 White Blood Count 7.9 Red Blood Count 2.21 L Hemoglobin 7.0 L Hematocrit 21.2 L Mean Corpuscular Volume 95.9 Mean Corpuscular Hemoglobin 31.7 Mean Corpuscular Hemoglobin Concent 33.0 Red Cell Distribution Width 21.1 #H Platelet Count 2 #*L Mean Platelet Volume Immature Granulocytes % 1.300 H Neutrophils % Segmented Neutrophils % (Manual) 48 Band Neutrophils % (Manual) 4 Lymphocytes % Lymphocytes % (Manual) 35 Monocytes % Monocytes % (Manual) 12 H Eosinophils % Eosinophils % (Manual) 1 Basophils % Nucleated Red Blood Cells % 1 H Immature Granulocytes # 0.100 H Neutrophils # Neutrophils # (Manual) 3.8 Band Neutrophils # 0.3 Lymphocytes (Manual) 2.7 Lymphocytes # Monocytes # Monocytes # (Manual) 0.9 Eosinophils # Basophils # Nucleated Red Blood Cells # Pathologist Review (Hematology) Y Giant Platelets 1 H Absolute Reticulocyte Count 0.187 H Percent Reticulocyte Count 8.5 H Prothrombin Time 12.7 Prothrombin Time Ratio 1.0 INR International Normalized Ratio 0.94 Activated Partial Thromboplast Time 29.7 Sodium Level 143 Potassium Level 3.6 Chloride Level 107 Carbon Dioxide Level 28 Anion Gap 8 Blood Urea Nitrogen 10 Creatinine 0.98 Est Glomerular Filtrat Rate mL/min > 60 Glucose Level 109 Calcium Level 9.1 Total Bilirubin 0.8 Direct Bilirubin 0.00 Indirect Bilirubin 0.8 Aspartate Amino Transf (AST/SGOT) 34 Alanine Aminotransferase (ALT/SGPT) 15 Alkaline Phosphatase 71 Total Protein 10.9 H Albumin 4.3 Globulin 6.60 H Albumin/Globulin Ratio 0.65 Bedside Urine pH (LAB) 6.5 Bedside Urine Protein (LAB) Negative Bedside Urine Glucose (UA) Negative Bedside Urine Ketones (LAB) Negative Bedside Urine Blood Negative Bedside Urine Nitrite (LAB) Negative Bedside Urine Leukocyte Esterase (L Negative POC Beta HCG, Qualitative NEGATIVE Medications Medication Current Medications Acetaminophen (Tylenol Tab) 650 mg ER BRIDGE PRN PO .MILD PAIN 1-3 OR TEMP; Start 12/28/18 at 09:00; Stop 12/29/18 at 08:59 Zolpidem Tartrate (Ambien) 5 mg HS MAY REPEAT X 1 PRN PO INSOMNIA; Start 12/28/18 at 12:30 Ondansetron HCl (Zofran Inj) 4 mg Q4H PRN IV NAUSEA AND/OR VOMITING; Start 12/28/18 at 12:30 Hydromorphone HCl (Dilaudid) 1 mg Q3H PRN IV SEVERE PAIN LEVEL 7-10 Last administered on 12/28/18at 15:08; Admin Dose 1 MG; Start 12/28/18 at 15:00 SONIA HUGHES MD Dec 28, 2018 19:19
[2018-12-28 20:00] VITALS: BP 118/71; PULSE 66; RESP 17
[2018-12-28] MEDS ORDERED: DIPHENHYDRAMINE 25 MG CAP PO PRN (22:00)
[2018-12-29 02:00] VITALS: BP 123/82; PULSE 66; RESP 17
[2018-12-29] MEDS: HYDROmorphONE 1 MG/ML SYG IV PRN ×7 (02:04→21:58)
[2018-12-29] MEDS ORDERED: SOD CHLORIDE 0.9% 250 ML IV* ONE (07:43)
--- NOTE | 2018-12-29 07:49 | HP ---
DATE OF ADMISSION: 12/28/2018 TYPE OF CONSULTATION: Preoperative gastroenterology. REASON FOR VISIT: Recurrent thrombocytopenia. HISTORY OF PRESENT ILLNESS: A 33-year-old female with chronic ITP and sickle cell a jose, was referred to Emergency Room by her primary care provider after she reported bleeding from h er gum. CBC as outpatient showed a platelet count of 12,000. Repeat CBC in the emergency Room showe d a platelet count of 2000, hemoglobin of 7 and a white blood cell count of 7.9. The patient denies any headache. No nosebleed. No bright red blood per rectum or melena. No hematuria. Case was disc ussed with , the manager camp. PAST MEDICAL HISTORY: 1. ITP. This has been resistant to splenectomy, steroids and rituximab. 2. Sickle cell anemia. 3. Sickle pain. 4. Hypothyroidism. MEDICATIONS: Prior to admission includes: 1. every Tuesday. 2. Oxycodone/acetaminophen 10/325 one tablet 3 times daily. 3. Zofran 4 mg q.6h. p.r.n. 4. Levothyroxine 300 mcg daily. 5. Cytomel 5 mcg daily. 6. Vitamin E and Vitamin B12. SOCIAL HISTORY: Patient lives at home. She denies tobacco or alcohol use. PHYSICAL EXAMINATION: GENERAL: Well-developed, well-nourished female who is in no apparent distress. VITAL SIGNS: Stable. She is afebrile. HEENT: Extraocular muscles intact. Pupils are equal, reactive to light bilaterally. Sclerae are an icteric. Oropharynx is clear and moist. NECK: Supple, no JVD, no carotid bruits. LUNGS: Clear to auscultation bilaterally. CARDIAC: Regular rate and rhythm. No murmurs or gallops. ABDOMEN: Soft, nontender, nondistended, normoactive bowel sounds. EXTREMITIES: No clubbing, cyanosis, or edema. NEUROLOGICAL: Grossly nonfocal. ASSESSMENT: 1. A 33-year-old female with recurrent and profound thrombocytopenia due to underlying ITP. 2. Sickle cell anemia with hemoglobin of 7. 3. Chronic pain related to sickle cell. 4. Hypothyroidism. PLAN: 1. Admit to med/surg, transfuse 1 unit of platelets phoresis. 2. IVIG. 3. Monitor CBC closely. 4. Hematology consultation was requested. Dictated By: TORI TAYOLR/LINH Conf#: [id number] DID#: [id number]
[2018-12-29 07:54] VITALS: BP 102/67; PULSE 61; RESP 1
[2018-12-29] MEDS ORDERED: IMMUNE GLOBULIN (HUMAN) 6 GM INJ IV ONE (08:00)
[2018-12-29] MEDS: DIPHENHYDRAMINE 50 MG INJ IV PRN ×3 (08:39→21:53)
--- NOTE | 2018-12-29 10:52 | PN ---
Date/Time of Note Date/Time of Note DATE: 12/29/18 TIME: 10:50 Subjective Doing well. No new complaints. Objective Vitals Vital Signs Date Temp Pulse Resp B/P (MAP) Pulse Ox O2 O2 Flow FiO2 Time Delivery Rate 12/29/18 97.8 61 1 102/67 100 07:54 (79) 12/28/18 Room Air 09:44 Clear to auscultation bilaterally Regular rate and rhythm Soft nontender nondistended normoactive bowel sounds No edema Nonfocal Results Result Diagram: 12/29/1803 12/28/18 0721 Medications Medications Current Medications Zolpidem Tartrate (Ambien) 5 mg HS MAY REPEAT X 1 PRN PO INSOMNIA; Start 12/28/18 at 12:30 Ondansetron HCl (Zofran Inj) 4 mg Q4H PRN IV NAUSEA AND/OR VOMITING; Start 12/28/18 at 12:30 Hydromorphone HCl (Dilaudid) 1 mg Q3H PRN IV SEVERE PAIN LEVEL 7-10 Last administered on 12/29/18at 08:39; Admin Dose 1 MG; Start 12/28/18 at 15:00 Docusate Sodium (Colace) 100 mg BID PRN PO CONSTIPATION; Start 12/28/18 at 22:00 Diphenhydramine HCl (Benadryl) 50 mg Q6H PRN IV Itching Last administered on 12/29/18at 08:39; Admin Dose 50 MG; Start 12/29/18 at 08:00 Immune Globulin 40 gm/Immune Globulin 5 gm/ Immune Globulin 20 gm/Device 650 ml @ 108.333 mls/hr ONCE ONCE IVPB ; Start 12/29/18 at 12:00; Stop 12/29/18 at 17:59 VTE Prophylaxis Risk score (from Nsg)>0 risk: 5 SCD applied (from Nsg): Yes Lines/Catheters IV Catheter Type: Saline Lock Taylor in Place: No Assessment/Plan Assessment/Plan 33-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 if platelet count is a stable TORI RASHID MD Dec 29, 2018 10:52
[2018-12-29] MEDS ORDERED: predniSONE 20 MG TAB PO SCH (11:00)
[2018-12-29] MEDS ORDERED: [UNRECOGNIZED DRUG - OTHER] IVPB ONE ×2 (12:00→14:00)
[2018-12-29] MEDS ORDERED: GLY IVPB ONE ×2 (12:00→14:00)
[2018-12-29] MEDS ORDERED: IGA AVG IVPB ONE ×2 (12:00→14:00)
[2018-12-29] MEDS ORDERED: IMMUNE GLOBULIN IVPB ONE ×2 (12:00→14:00)
[2018-12-29] MEDS ORDERED: IMMUNE GLOBUL IVPB ONE ×2 (12:00→14:00)
[2018-12-29] MEDS: DOCUSATE SODIUM 100 MG CAP PO PRN (12:41)
[2018-12-29] MEDS: DEXAMETHASONE 4 MG TAB PO SCH (12:44)
[2018-12-29 14:00] VITALS: BP 125/66; PULSE 59; RESP 18
--- NOTE | 2018-12-29 20:04 | CONS ---
Assessment/Plan Assessment/Plan Assessment/Plan (Daily) 33 yo F with refractory ITP # ITP - s/p 1u platelets - recommend IVIG 1g/kg/day x 2 days, 2nd dose today - dexamethasone 40mg PO x 4 days - to start Tavalisse as an outpatient - daily CBC - okay to discharge with close outpatient follow-up # anemia - transfuse for hemoglobin <7, received transfusion today for Hgb 6.7 - secondary to sickle cell disease # bone pain from sickle cell disease - dilaudid PRN - resume outpatient regimen on discharge (followed by pain management) - IV fluids Thank you for allowing me to participate in this patient's care. Consultation Date/Type/Reason Admit Date/Time Dec 28, 2018 at 08:34 Initial Consult Date 12/28/18 Type of Consult Hematology-Oncology Consult Reason for Consultation ITP Date/Time of Note DATE: 12/29/18 TIME: 20:02 24 HR Interval Summary Free Text/Dictation platelets 30K today Exam/Review of Systems Exam Vitals Vital Signs Date Temp Pulse Resp B/P (MAP) Pulse Ox O2 O2 Flow FiO2 Time Delivery Rate 12/29/18 97.9 59 18 125/66 100 14:00 (85) 12/28/18 Room Air 09:44 Results Result Diagram: 12/29/18 0603 12/28/18 0721 Results 24hrs Laboratory Tests Test 12/29/18 06:03 12/29/18 07:44 White Blood Count 7.6 Red Blood Count 2.07 L Hemoglobin 6.7 *L Hematocrit 20.4 L Mean Corpuscular Volume 98.6 Mean Corpuscular Hemoglobin 32.4 Mean Corpuscular Hemoglobin Concent 32.8 Red Cell Distribution Width 22.0 H Platelet Count 30 #L Mean Platelet Volume 10.8 H Immature Granulocytes % 4.100 H Neutrophils % 52.4 Segmented Neutrophils % (Manual) 55 Band Neutrophils % (Manual) 7 H Lymphocytes % 27.9 Lymphocytes % (Manual) 20 Reactive Lymphocytes % (Manual) 2 H Monocytes % 12.8 H Monocytes % (Manual) 6 Eosinophils % 2.1 Eosinophils % (Manual) 8 H Basophils % 0.7 Myelocytes % (Manual) 2 H Nucleated Red Blood Cells % 3 H Immature Granulocytes # 0.310 H Neutrophils # 4.0 Neutrophils # (Manual) 4.2 Band Neutrophils # 0.5 Lymphocytes (Manual) 1.5 Lymphocytes # 2.1 Reactive Lymphocytes # 0.1 H Monocytes # 1.0 H Monocytes # (Manual) 0.4 Eosinophils # 0.2 Basophils # 0.1 Myelocytes # 0.1 H Nucleated Red Blood Cells # 0.3 H Giant Platelets 3 H Lab Scanned Report BLOOD TRANSFUSION Medications Medication Current Medications Zolpidem Tartrate (Ambien) 5 mg HS MAY REPEAT X 1 PRN PO INSOMNIA; Start 12/28/18 at 12:30 Ondansetron HCl (Zofran Inj) 4 mg Q4H PRN IV NAUSEA AND/OR VOMITING; Start 12/28/18 at 12:30 Hydromorphone HCl (Dilaudid) 1 mg Q3H PRN IV SEVERE PAIN LEVEL 7-10 Last administered on 12/29/18at 18:31; Admin Dose 1 MG; Start 12/28/18 at 15:00 Docusate Sodium (Colace) 100 mg BID PRN PO CONSTIPATION Last administered on 12/29/18at 12:41; Admin Dose 100 MG; Start 12/28/18 at 22:00 Diphenhydramine HCl (Benadryl) 50 mg Q6H PRN IV Itching Last administered on 12/29/18at 15:31; Admin Dose 50 MG; Start 12/29/18 at 08:00 Pantoprazole (Protonix Tab) 40 mg DAILY@06 PO ; Start 12/30/18 at 06:00 Dexamethasone (Decadron) 40 mg DAILY PO Last administered on 12/29/18at 12:44; Admin Dose 40 MG; Start 12/29/18 at 13:00; Stop 01/01/19 at 09:01 SONIA HUGHES MD Dec 29, 2018 20:04
[2018-12-29 20:40] VITALS: BP 134/81; PULSE 63; RESP 20
[2018-12-29 22:00] VITALS: BP 168/114; PULSE 95; RESP 18
[2018-12-30] MEDS: ONDANSETRON 4 MG INJ IV PRN ×3 (00:13→17:54)
[2018-12-30] MEDS: HYDROmorphONE 1 MG/ML SYG IV PRN ×8 (00:48→20:15)
[2018-12-30 02:12] VITALS: BP 109/52; PULSE 89; RESP 19
[2018-12-30] MEDS: SENNA TAB PO PRN ×2 (05:59→17:54)
[2018-12-30] MEDS: PANTOPRAZOLE (EC) 40 MG TAB PO SCH (05:59)
[2018-12-30] MEDS: DOCUSATE SODIUM 100 MG CAP PO PRN (05:59)
[2018-12-30] MEDS: POLYETHYLENE GLYCOL 17 GM PACKET PO SCH (06:38)
[2018-12-30] MEDS: DEXAMETHASONE 4 MG TAB PO SCH (08:07)
[2018-12-30 08:24] VITALS: BP 137/86; PULSE 71; RESP 18
--- NOTE | 2018-12-30 11:01 | PN ---
Date/Time of Note Date/Time of Note DATE: 12/30/18 TIME: 10:59 Assessment/Plan VTE Prophylaxis Risk score (from Nsg)>0 risk: 3 SCD applied (from Ns): Yes Pharmacological prophylaxis: NA/contraindicated (thrombocytopenia) Pharm contraindication: blood coag disorder Lines/Catheters IV Catheter Type (from Nrs): Peripheral IV Urinary Cath still in place: No Assessment/Plan Assessment/Plan 1. ITP, improved with IVIg, cont pred 2. sickle cell anemia, sill sig pain, cont IV pain meds, re eval in am Result Diagram: 12/30/18 0633 12/28/18 0721 Results 24hrs Laboratory Tests Test 12/30/18 06:33 White Blood Count 10.9 #H Red Blood Count 3.57 #L Hemoglobin 11.2 #L Hematocrit 34.7 #L Mean Corpuscular Volume 97.2 Mean Corpuscular Hemoglobin 31.4 Mean Corpuscular Hemoglobin Concent 32.3 Red Cell Distribution Width 21.1 H Platelet Count 27 *L Mean Platelet Volume 11.8 H Immature Granulocytes % 4.400 H Neutrophils % Segmented Neutrophils % (Manual) 81 H Band Neutrophils % (Manual) 4 Lymphocytes % Lymphocytes % (Manual) 11 L Reactive Lymphocytes % (Manual) 1 H Monocytes % Monocytes % (Manual) 1 Eosinophils % Basophils % Metamyelocytes % (manual) 1 H Myelocytes % (Manual) 1 H Nucleated Red Blood Cells % 4 H Immature Granulocytes # 0.480 H Neutrophils # Neutrophils # (Manual) 8.9 H Band Neutrophils # 0.4 Lymphocytes (Manual) 1.1 Lymphocytes # Reactive Lymphocytes # 0.1 H Monocytes # Monocytes # (Manual) 0.1 L Eosinophils # Basophils # Metamyelocytes # 0.1 H Myelocytes # 0.1 H Nucleated Red Blood Cells # Platelet Estimate SIG DECREASED Polychromasia 2+ Anisocytosis 2+ Rouleau 1+ Subjective 24 Hr Interval Summary Free Text/Dictation still fair amout of pain, using pain meds every couple of hours Exam/Review of Systems Exam Vitals Vital Signs Date Temp Pulse Resp B/P (MAP) Pulse Ox O2 O2 Flow FiO2 Time Delivery Rate 12/30/18 98.2 71 18 137/86 95 Room Air 08:24 (103) Intake and Output 12/29/18 12/29/18 12/30/18 1515:00 23:00 07:00 IntakeIntake Total 400 ml 1000 ml BalanceBalance 400 ml 1000 ml Exam nad, ctab, soft nt Results Results 24hrs Laboratory Tests Test 12/30/18 06:33 White Blood Count 10.9 #H Red Blood Count 3.57 #L Hemoglobin 11.2 #L Hematocrit 34.7 #L Mean Corpuscular Volume 97.2 Mean Corpuscular Hemoglobin 31.4 Mean Corpuscular Hemoglobin Concent 32.3 Red Cell Distribution Width 21.1 H Platelet Count 27 *L Mean Platelet Volume 11.8 H Immature Granulocytes % 4.400 H Neutrophils % Segmented Neutrophils % (Manual) 81 H Band Neutrophils % (Manual) 4 Lymphocytes % Lymphocytes % (Manual) 11 L Reactive Lymphocytes % (Manual) 1 H Monocytes % Monocytes % (Manual) 1 Eosinophils % Basophils % Metamyelocytes % (manual) 1 H Myelocytes % (Manual) 1 H Nucleated Red Blood Cells % 4 H Immature Granulocytes # 0.480 H Neutrophils # Neutrophils # (Manual) 8.9 H Band Neutrophils # 0.4 Lymphocytes (Manual) 1.1 Lymphocytes # Reactive Lymphocytes # 0.1 H Monocytes # Monocytes # (Manual) 0.1 L Eosinophils # Basophils # Metamyelocytes # 0.1 H Myelocytes # 0.1 H Nucleated Red Blood Cells # Platelet Estimate SIG DECREASED Polychromasia 2+ Anisocytosis 2+ Rouleau 1+ Medications Medication Current Medications Zolpidem Tartrate (Ambien) 5 mg HS MAY REPEAT X 1 PRN PO INSOMNIA; Start at 12:30 Ondansetron HCl (Zofran Inj) 4 mg Q4H PRN IV NAUSEA AND/OR VOMITING Last administered on 12/30/18at 08:16; Admin Dose 4 MG; Start 12/28/18 at 12:30 Docusate Sodium (Colace) 100 mg BID PRN PO CONSTIPATION Last administered on 12/30/18at 05:59; Admin Dose 100 MG; Start 12/28/18 at 22:00 Diphenhydramine HCl (Benadryl) 50 mg Q6H PRN IV Itching Last administered on 12/29/18at 21:53; Admin Dose 50 MG; Start 12/29/18 at 08:00 Pantoprazole (Protonix Tab) 40 mg DAILY@06 PO Last administered on 12/30/18at 05:59; Admin Dose 40 MG; Start 12/30/18 at 06:00 Dexamethasone (Decadron) 40 mg DAILY PO Last administered on 12/30/18at 08:07; Admin Dose 40 MG; Start 12/29/18 at 13:00; Stop 01/01/19 at 09:01 Hydromorphone HCl (Dilaudid) 1 mg Q2H PRN IV SEVERE PAIN LEVEL 7-10 Last administered on 12/30/18at 08:07; Admin Dose 1 MG; Start 12/30/18 at 06:00 Polyethylene Glycol (Miralax) 17 gm DAILY PO Last administered on 12/30/18at 06:38; Admin Dose 17 GM; Start 12/30/18 at 06:30 Senna (Senokot) 1 tab BID PRN PO CONSTIPATION Last administered on 12/30/18at 05:59; Admin Dose 1 TAB; Start 12/30/18 at 06:00 ADEBAYO JACOBSEN MD Dec 30, 2018 11:01
[2018-12-30 14:00] VITALS: BP 152/91; PULSE 57; RESP 18
[2018-12-30] MEDS: DIPHENHYDRAMINE 50 MG INJ IV PRN (14:58)
--- NOTE | 2018-12-30 19:06 | CONS ---
Assessment/Plan Assessment/Plan Assessment/Plan (Daily) 33 yo F with refractory ITP # ITP - s/p 1u platelets - received IVIG 1g/kg/day x 2 days - dexamethasone 40mg PO x 4 days - to start Tavalisse as an outpatient - daily CBC - okay to discharge with close outpatient follow-up # anemia - received transfusion today for Hgb 6.7, more than adequate response - secondary to sickle cell disease # bone pain from sickle cell disease - dilaudid PRN - resume outpatient regimen on discharge (followed by pain management) - IV fluids # hypothyroidism - patient should be on synthroid? Thank you for allowing me to participate in this patient's care. Consultation Date/Type/Reason Admit Date/Time Dec 28, 2018 at 08:34 Initial Consult Date 12/28/18 Type of Consult Hematology-Oncology Consult Reason for Consultation ITP Date/Time of Note DATE: 12/30/18 TIME: 19:01 24 HR Interval Summary Free Text/Dictation Significant pain yesterday evening and night. Cobb like she had a panic attack. No bleeding issues. Exam/Review of Systems Exam Vitals Vital Signs Date Temp Pulse Resp B/P (MAP) Pulse Ox O2 O2 Flow FiO2 Time Delivery Rate 12/30/18 98.2 57 18 152/91 95 Room Air 14:00 (111) Intake and Output 12/29/18 12/29/18 12/30/18 1515:00 23:00 07:00 IntakeIntake Total 400 ml 1000 ml BalanceBalance 400 ml 1000 ml Constitutional: alert, oriented, well developed Psych: nl mood/affect Head: normocephalic, atraumatic Eyes: nl conjunctiva ENMT: mucosa pink and moist Neck: supple Respiratory: clear to auscultation Cardiovascular: regular rate and rhythm Gastrointestinal: soft, non-tender Musculoskeletal: nl extremities to inspection Neurological: MOBILE APPLICATION DEVELOPER II-XII intact Results Result Diagram: 12/30/18 0633 12/28/18 0721 Results 24hrs Laboratory Tests Test 12/30/18 06:33 White Blood Count 10.9 #H Red Blood Count 3.57 #L Hemoglobin 11.2 #L Hematocrit 34.7 #L Mean Corpuscular Volume 97.2 Mean Corpuscular Hemoglobin 31.4 Mean Corpuscular Hemoglobin Concent 32.3 Red Cell Distribution Width 21.1 H Platelet Count 27 *L Mean Platelet Volume 11.8 H Immature Granulocytes % 4.400 H Neutrophils % Segmented Neutrophils % (Manual) 81 H Band Neutrophils % (Manual) 4 Lymphocytes % Lymphocytes % (Manual) 11 L Reactive Lymphocytes % (Manual) 1 H Monocytes % Monocytes % (Manual) 1 Eosinophils % Basophils % Metamyelocytes % (manual) 1 H Myelocytes % (Manual) 1 H Nucleated Red Blood Cells % 4 H Immature Granulocytes # 0.480 H Neutrophils # Neutrophils # (Manual) 8.9 H Band Neutrophils # 0.4 Lymphocytes (Manual) 1.1 Lymphocytes # Reactive Lymphocytes # 0.1 H Monocytes # Monocytes # (Manual) 0.1 L Eosinophils # Basophils # Metamyelocytes # 0.1 H Myelocytes # 0.1 H Nucleated Red Blood Cells # Platelet Estimate SIG DECREASED Polychromasia 2+ Anisocytosis 2+ Rouleau 1+ Medications Medication Current Medications Zolpidem Tartrate (Ambien) 5 mg HS MAY REPEAT X 1 PRN PO INSOMNIA; Start at 12:30 Ondansetron HCl (Zofran Inj) 4 mg Q4H PRN IV NAUSEA AND/OR VOMITING Last administered on 12/30/18 17:54; Admin Dose 4 MG; Start 12/28/18 at 12:30 Docusate Sodium (Colace) 100 mg BID PRN PO CONSTIPATION Last administered on 12/30/18 05:59; Admin Dose 100 MG; Start 12/28/18 at 22:00 Diphenhydramine HCl (Benadryl) 50 mg Q6H PRN IV Itching Last administered on 12/30/18at 14:58; Admin Dose 50 MG; Start 12/29/18 at 08:00 Pantoprazole (Protonix Tab) 40 mg DAILY@06 PO Last administered on 12/30/18 05:59; Admin Dose 40 MG; Start 12/30/18 at 06:00 Dexamethasone (Decadron) 40 mg DAILY PO Last administered on 12/30/18 08:07; Admin Dose 40 MG; Start 12/29/18 at 13:00; Stop 01/01/19 at 09:01 Hydromorphone HCl (Dilaudid) 1 mg Q2H PRN IV SEVERE PAIN LEVEL 7-10 Last administered on 12/30/18at 17:54; Admin Dose 1 MG; Start 12/30/18 at 06:00 Polyethylene Glycol (Miralax) 17 gm DAILY PO Last administered on 12/30/18at 06:38; Admin Dose 17 GM; Start 12/30/18 at 06:30 Senna (Senokot) 1 tab BID PRN PO CONSTIPATION Last administered on 12/30/18at 05:59; Admin Dose 1 TAB; Start 12/30/18 at 06:00 SONIA HUGHES MD Dec 30, 2018 19:06
[2018-12-30 20:00] VITALS: BP 137/90; PULSE 55; RESP 17
[2018-12-31] MEDS: ONDANSETRON 4 MG INJ IV PRN ×2 (05:29→10:11)
[2018-12-31] MEDS: HYDROmorphONE 1 MG/ML SYG IV PRN ×3 (05:31→10:11)
[2018-12-31] MEDS: DOCUSATE SODIUM 100 MG CAP PO PRN (05:31)
[2018-12-31] MEDS: SENNA TAB PO PRN (05:31)
[2018-12-31] MEDS: PANTOPRAZOLE (EC) 40 MG TAB PO SCH (05:31)
[2018-12-31 08:34] VITALS: BP 125/73; PULSE 56; RESP 18
[2018-12-31] MEDS: POLYETHYLENE GLYCOL 17 GM PACKET PO SCH (10:11)
[2018-12-31] MEDS: DEXAMETHASONE 4 MG TAB PO SCH (10:11)
--- NOTE | 2018-12-31 11:13 | PN ---
Date/Time of Note Date/Time of Note DATE: 12/31/18 TIME: 11:11 Assessment/Plan VTE Prophylaxis Risk score (from Ns)>0 risk: 3 SCD applied (from [facility] [place]): Yes Pharmacological prophylaxis: NA/contraindicated Pharm contraindication: bleeding Lines/Catheters IV Catheter Type (from [facility]): Peripheral IV Urinary Cath still in place: No Assessment/Plan Assessment/Plan 1. heme: sickle cell anemia, hgb stable, pain adequate control,. patietn requesting d/c (b) itp, platelet better todaym, cont steroid 2. d.c honme per patient request Result Diagram: 12/31/18 0502 12/28/18 0721 Results 24hrs Laboratory Tests Test 12/31/18 05:02 White Blood Count 22.8 #H Red Blood Count 3.28 L Hemoglobin 10.2 L Hematocrit 31.8 L Mean Corpuscular Volume 97.0 Mean Corpuscular Hemoglobin 31.1 Mean Corpuscular Hemoglobin Concent 32.1 Red Cell Distribution Width 20.6 H Platelet Count 39 #L Mean Platelet Volume 13.6 H Immature Granulocytes % 1.600 H Neutrophils % 88.2 H Lymphocytes % 2.7 L Monocytes % 7.4 Eosinophils % 0.0 Basophils % 0.1 Nucleated Red Blood Cells % 1.8 H Immature Granulocytes # 0.360 H Neutrophils # 20.1 H Lymphocytes # 0.6 L Monocytes # 1.7 H Eosinophils # 0.0 Basophils # 0.0 Nucleated Red Blood Cells # 0.4 H Subjective 24 Hr Interval Summary Free Text/Dictation no complaints, some pain, but not different from basline per patient Exam/Review of Systems Exam Vitals Vital Signs Date Temp Pulse Resp B/P (MAP) Pulse Ox O2 O2 Flow FiO2 Time Delivery Rate 12/31/18 97.9 56 18 125/73 96 Room Air 08:34 (90) Intake and Output 12/30/18 12/30/18 12/31/18 1515:00 23:00 07:00 IntakeIntake Total 800 ml 400 ml 480 ml BalanceBalance 800 ml 400 ml 480 ml Exam nad, coft nt, ctab Results Results 24hrs Laboratory Tests Test 12/31/18 05:02 White Blood Count 22.8 #H Red Blood Count 3.28 L Hemoglobin 10.2 L Hematocrit 31.8 L Mean Corpuscular Volume 97.0 Mean Corpuscular Hemoglobin 31.1 Mean Corpuscular Hemoglobin Concent 32.1 Red Cell Distribution Width 20.6 H Platelet Count 39 #L Mean Platelet Volume 13.6 H Immature Granulocytes % 1.600 H Neutrophils % 88.2 H Lymphocytes % 2.7 L Monocytes % 7.4 Eosinophils % 0.0 Basophils % 0.1 Nucleated Red Blood Cells % 1.8 H Immature Granulocytes # 0.360 H Neutrophils # 20.1 H Lymphocytes # 0.6 L Monocytes # 1.7 H Eosinophils # 0.0 Basophils # 0.0 Nucleated Red Blood Cells # 0.4 H Medications Medication Current Medications Zolpidem Tartrate (Ambien) 5 mg HS MAY REPEAT X 1 PRN PO INSOMNIA; Start 12/28/18 at 12:30 Ondansetron HCl (Zofran Inj) 4 mg Q4H PRN IV NAUSEA AND/OR VOMITING Last administered on 12/31/18 10:11; Admin Dose 4 MG; Start 12/28/18 at 12:30 Docusate Sodium (Colace) 100 mg BID PRN PO CONSTIPATION Last administered on 12/31/18 05:31; Admin Dose 100 MG; Start 12/28/18 at 22:00 Diphenhydramine HCl (Benadryl) 50 mg Q6H PRN IV Itching Last administered on 12/30/18 14:58; Admin Dose 50 MG; Start 12/29/18 at 08:00 Pantoprazole (Protonix Tab) 40 mg DAILY@06 PO Last administered on 12/31/18 05:31; Admin Dose 40 MG; Start 12/30/18 at 06:00 Dexamethasone (Decadron) 40 mg DAILY PO Last administered on 12/31/18 10:11; Admin Dose 40 MG; Start 12/29/18 at 13:00; Stop 01/01/19 at 09:01 Hydromorphone HCl (Dilaudid) 1 mg Q2H PRN IV SEVERE PAIN LEVEL 7-10 Last administered on 12/31/18 10:11; Admin Dose 1 MG; Start 12/30/18 at 06:00 Polyethylene Glycol (Miralax) 17 gm DAILY PO Last administered on 12/31/18 10:11; Admin Dose 17 GM; Start 12/30/18 at 06:30 Senna (Senokot) 1 tab BID PRN PO CONSTIPATION Last administered on 12/31/18at 05:31; Admin Dose 1 TAB; Start 12/30/18 at 06:00 ADEBAYO JACOBSEN MD Dec 31, 2018 11:13
[2018-12-31] MEDS ORDERED: ONDA8TAB14 PO (11:15)
--- NOTE | 2018-12-31 11:16 | PDOCDIS ---
Discharge Instructions DIAGNOSIS Discharge Diagnosis 1. Idiopathic Thrombocytopenia Purpura (ITP) 2. 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 PCP next available ADEBAYO JACOBSEN MD Dec 31, 2018 11:16
--- NOTE | 2018-12-31 11:19 | DS ---
Date/Time of Note Date/Time of Note DATE: 12/31/18 TIME: 11:17 Discharge Summary Admission/Discharge Info Admit Date/Time Dec 28, 2018 at 08:34 Discharge Date/Time 12/31/18 Discharge Diagnosis 1. Idiopathic Thrombocytopenia Purpura (ITP) 2. Sickle Cell Anemia Patient Condition: Fair Consults Анна Gonzalez MD (Heme) Hospital Course Patient admitted with mucosal bleeding adn found to have platelet count of 2,000. She has a long history of ITP and was treatee with IVIg and steroids, her platelets improved to 39,000 on day of discharge. She is recommended to continue with steroids and to follow up with hematology. She has sickle cell anemia and chronic pain syndrome which remained near baseline throughout the hospitalization Home Meds Active Scripts Ondansetron (Ondansetron Odt) 8 Mg Tab.rapdis, 8 MG PO Q6H PRN for NAUSEA AND/OR VOMITING, #60 TAB Prov:ADEBAYO JACOBSEN MD 12/31/18 Cyanocobalamin* (Vitamin B12*) 500 Mcg Tab, 1000 MCG PO DAILY for 30 Days, TAB 2 Refills Prov:TORI RASHID MD 12/17/18 Liothyronine Sodium (Cytomel) 5 Mcg Tab, 5 MCG PO DAILY for 30 Days, TAB 2 Refills Prov:TORI RASHID MD 12/17/18 Levothyroxine Sodium* (Levothyroxine Sodium*) 100 Mcg Tablet, 300 MCG PO BEFORE BREAKFAST for 30 Days, TAB 2 Refills Prov:TORI RASHID MD 12/17/18 Reported Medications Cholecalciferol* (Vitamin D3*) 1,000 Unit Tablet, 1000 UNIT PO DAILY, TAB 11/08/18 Buprenorphine (Butrans) 1 Each Patch.tdwk, 1 EACH TD Q FRI 09/17/18 Oxycodone HCl/Acetaminophen (Oxycodone-Acetaminophen 10-325) 1 Each Tablet, 1 EACH PO TID, TAB 09/17/18 Ondansetron Hcl* (Zofran*) 4 Mg Tab, 4 MG PO Q6H PRN for NAUSEA AND OR VOMITING, TAB 09/17/18 Follow-up Plan 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 PCP next available Primary Care Provider Not On Staff Doctor Time spent on discharge: > 30 minutes Pending Labs Laboratory Tests Test 12/31/18 05:02 White Blood Count 22.8 10^3/ul (4.8-10.8) Red Blood Count 3.28 10^6/ul (4.20-5.40) Hemoglobin 10.2 g/dl (12.0-16.0) Hematocrit 31.8 % (37.0-47.0) Mean Corpuscular Volume 97.0 fl (82.0-101.0) Mean Corpuscular Hemoglobin 31.1 pg (29.0-33.0) Mean Corpuscular Hemoglobin Concent 32.1 g/dl (32.0-37.0) Red Cell Distribution Width 20.6 % (11.5-14.5) Platelet Count 39 10^3/UL (140-415) Mean Platelet Volume 13.6 fl (7.4-10.4) Immature Granulocytes % 1.600 % (0.001-0.429) Neutrophils % 88.2 % (39.0-77.0) Lymphocytes % 2.7 % (15.0-51.0) Monocytes % 7.4 % (0.0-11.0) Eosinophils % 0.0 % (0.0-7.0) Basophils % 0.1 % (0.0-2.0) Nucleated Red Blood Cells % 1.8 /100WBC (0.0-0.0) Immature Granulocytes # 0.360 10^3/ul (0.0-0.031) Neutrophils # 20.1 10^3/ul (1.6-7.5) Lymphocytes # 0.6 10^3/ul (0.8-2.9) Monocytes # 1.7 10^3/ul (0.3-0.9) Eosinophils # 0.0 10^3/ul (0.0-0.5) Basophils # 0.0 10^3/ul (0.0-0.1) Nucleated Red Blood Cells # 0.4 10^3/ul (0.0-0.0) ADEBAYO JACOBSEN MD Dec 31, 2018 11:19
== END 2018-12-31 13:25 | disposition home or self-care (01) | DRG 813 ==
LOC: E/R 06:23 → PP2 08:34
PROVIDERS: ADMIT Internal Medicine; ATTEND Internal Medicine
PROC: 30233R1 Transfusion of Nonautologous Platelets into Peripheral Vein, Percutaneous Approach (ICD-10-PCS; principal; 2018-12-28)
PROC: 30233S1 Transfusion of Nonautologous Globulin into Peripheral Vein, Percutaneous Approach (ICD-10-PCS; 2018-12-28)
PROC: 30233N1 Transfusion of Nonautologous Red Blood Cells into Peripheral Vein, Percutaneous Approach (ICD-10-PCS; 2018-12-29)
DX: D69.3 Immune thrombocytopenic purpura (principal); D57.00 Hb-SS disease with crisis, unspecified; E03.9 Hypothyroidism, unspecified; G89.4 Chronic pain syndrome
CPT/HCPCS: 36415; 36430; 80053; 81003; 81025; 85025; 85045; 85610; 85730; 86850; 86900; 86901; 86920; 96374; 96375; J1566; J1170; J1200; J1561; J2270; J2405; J7030; J7040; P9016; P9035

== ENCOUNTER 2019-01-03 19:23 | Emergency (ER) | payer OTHER ==
[~2019-01-03] VITALS: Ht 167.6 cm; Wt 65.3 kg
[~2019-01-03 19:23] MED LIST changes: +ONDA8TAB14 PO
[2019-01-03 19:54] VITALS: Ht 167.6 cm; Wt 65.3 kg
[2019-01-03] MEDS ORDERED: HYDROmorphONE 1 MG/ML SYG IV ONE (22:28)
[2019-01-03] MEDS ORDERED: DIPHENHYDRAMINE 50 MG INJ IV ONE (22:30)
--- NOTE | 2019-01-04 01:09 | ERD ---
ER Documentation Chief Complaint Chief Complaint states vb since last night, just got dc'd 3 days ago, hx of itp HPI Is a very pleasant 33-year-old female history of ITP and lupus who comes in for preventive maintenance last night. She recently had IVIG and platelet transfusion and she is worried that her counts might be low. She denies any palpitations fevers chills nausea vomiting. She denies any current complaints. ROS All systems reviewed and are negative except as per history of present illness. Medications Home Meds Active Scripts Ondansetron (Ondansetron Odt) 8 Mg Tab.rapdis, 8 MG PO Q6H PRN for NAUSEA AND/OR VOMITING, #60 TAB Prov:ADEBAYO JACOBSEN MD 12/31/18 Cyanocobalamin* (Vitamin B12*) 500 Mcg Tab, 1000 MCG PO DAILY for 30 Days, TAB 2 Refills Prov:TORI RASHID MD 12/17/18 Liothyronine Sodium (Cytomel) 5 Mcg Tab, 5 MCG PO DAILY for 30 Days, TAB 2 Refills Prov:TORI RASHID MD 12/17/18 Levothyroxine Sodium* (Levothyroxine Sodium*) 100 Mcg Tablet, 300 MCG PO BEFORE BREAKFAST for 30 Days, TAB 2 Refills Prov:TORI RASHID MD 12/17/18 Reported Medications Cholecalciferol* (Vitamin D3*) 1,000 Unit Tablet, 1000 UNIT PO DAILY, TAB 11/08/18 Buprenorphine (Butrans) 1 Each Patch.tdwk, 1 EACH TD Q FRI 09/17/18 Oxycodone HCl/Acetaminophen (Oxycodone-Acetaminophen 10-325) 1 Each Tablet, 1 EACH PO TID, TAB 09/17/18 Discontinued Reported Medications Ondansetron Hcl* (Zofran*) 4 Mg Tab, 4 MG PO Q6H PRN for NAUSEA AND OR VOMITING, TAB 09/17/18 Allergies Allergies: Coded Allergies: immune globulin,gamma (IgG) human (Verified Adverse Reaction, Mild, HYPOTENSION, 12/28/18) PATIENT HAS RECEIVED IVIG IN THE PAST. MONITOR BP IF GIVEN PMhx/Soc History of Surgery: Yes (Csection 2009 Splenectory 2010 IVC filter 2013) Anesthesia Reaction: No Hx Neurological Disorder: No Hx Respiratory Disorders: No Hx Cardiac Disorders: No Hx Psychiatric Problems: No Hx Miscellaneous Medical Probl: Yes (Lupus, Sickle Cell, Fibromyalgia, Chronic Anemia, THROMBOCYTOPENIA) Hx Alcohol Use: No Hx Substance Use: No Hx Tobacco Use: No Smoking Status: Never smoker Physical Exam Vitals Vital Signs Date Temp Pulse Resp B/P (MAP) Pulse Ox O2 O2 Flow FiO2 Time Delivery Rate 01/03/19 55 14 129/76 99 Room Air 21:52 (93) 01/03/19 97.9 61 20 132/79 99 19:54 (96) Physical Exam Const: No acute distress Head: Atraumatic Eyes: Normal Conjunctiva ENT: Normal External Ears, Nose and Mouth. Neck: Full range of motion. No meningismus. Resp: Clear to auscultation bilaterally Cardio: Regular rate and rhythm, no murmurs Abd: Soft, non tender, non distended. Normal bowel sounds Skin: No petechiae or rashes Back: No midline or flank tenderness Ext: No cyanosis, or edema Neur: Awake and alert Psych: Normal Mood and Affect Result Diagram: 01/03/19220901/03/19 221 Results 24 hrs Laboratory Tests Test 01/03/19 22:10 White Blood Count 10.8 10^3/ul Red Blood Count 3.35 10^6/ul Hemoglobin 10.5 g/dl Hematocrit 32.2 % Mean Corpuscular Volume 96.1 fl Mean Corpuscular Hemoglobin 31.3 pg Mean Corpuscular Hemoglobin Concent 32.6 g/dl Red Cell Distribution Width 18.8 % Platelet Count 46 10^3/UL Mean Platelet Volume 12.9 fl Immature Granulocytes % 0.800 % Neutrophils % 63.6 % Lymphocytes % 26.3 % Monocytes % 8.6 % Eosinophils % 0.6 % Basophils % 0.1 % Nucleated Red Blood Cells % 0.9 /100WBC Immature Granulocytes # 0.090 10^3/ul Neutrophils # 6.9 10^3/ul Lymphocytes # 2.9 10^3/ul Monocytes # 0.9 10^3/ul Eosinophils # 0.1 10^3/ul Basophils # 0.0 10^3/ul Nucleated Red Blood Cells # 0.1 10^3/ul Prothrombin Time 12.6 Sec Prothrombin Time Ratio 1.0 INR International Normalized Ratio 0.93 Activated Partial Thromboplast Time 27.2 Sec Urine Color YELLOW Urine Clarity CLEAR Urine pH 6.0 Urine Specific [place] 1.013 Urine Ketones NEGATIVE mg/dL Urine Nitrite NEGATIVE mg/dL Urine Bilirubin NEGATIVE mg/dL Urine Urobilinogen 1+ mg/dL Urine Leukocyte Esterase NEGATIVE Ramiro/ul Urine Microscopic RBC 1 /HPF Urine Microscopic WBC 0 /HPF Urine Squamous Epithelial Cells FEW /HPF Urine Hemoglobin 3+ mg/dL Urine Glucose NEGATIVE mg/dL Urine Total Protein NEGATIVE mg/dl Urine Test NEGATIVE Sodium Level 140 mmol/L Potassium Level 4.4 mmol/L Chloride Level 103 mmol/L Carbon Dioxide Level 31 mmol/L Anion Gap 6 Blood Urea Nitrogen 17 mg/dl Creatinine 0.93 mg/dl Est Glomerular Filtrat Rate mL/min > 60 mL/min Glucose Level 92 mg/dl Calcium Level 9.6 mg/dl Current Medications Medications Dose Sig/Navi Start Time Status Last (Trade) Ordered Route PRN Stop Time Admin Dose Reason Admin 50 mg ONCE ONCE 01/03/19 DC 01/03/19 Diphenhydrami IV 22:30 22:31 ne HCl 01/03/19 22:31 (Benadryl) 1 mg ONCE ONCE 01/03/19 DC 01/03/19 Hydromorphone IV 22:28 22:31 HCl 01/03/19 22:29 (Dilaudid) Procedures/MDM Medical decision making: Patient is ben better than when she was discharged a few days ago. At this point is clinically stable for outpatient management. Advised her to follow-up with her primary care physician and primary OB. Return for worsening symptoms. Departure Diagnosis: Primary Impression: Vaginal bleeding Condition: Stable TRISTAN HOWARD Jan 04, 2019 01:09
[2019-01-04 01:45] VITALS: BP 100/67; PULSE 55; RESP 14
== END 2019-01-04 01:45 | disposition home or self-care (01) ==
LOC: E/R 19:23
DX: N93.9 Abnormal uterine and vaginal bleeding, unspecified (principal)
CPT/HCPCS: 36415; 76830; 76856; 80048; 81001; 84703; 85025; 85610; 85730; 86850; 86900; 86901; 96374; 96375; J1170; J1200; Z7502

== ENCOUNTER 2019-01-11 21:56 | Inpatient (IN) | payer OTHER ==
[~2019-01-11] VITALS: Ht 167.6 cm; Wt 68.2 kg
[~2019-01-11 21:56] MED LIST changes: +DEC4 PO; +DEXA4TAB PO; +LEVO200T6 PO; +OMEP20CA16 PO; -ONDA4TAB13 PO
[2019-01-12] VITALS (9 sets, daily range): BP systolic 103–138; BP diastolic 66–91; PULSE 48–63; RESP 18; Ht 167.6 cm; Wt 68.2 kg
[2019-01-12] MEDS ORDERED: SOD CHLORIDE 0.9% 0 ML IV ONE (02:01)
[2019-01-12] MEDS ORDERED: morphine 10 MG INJ IV ONE (03:30)
[2019-01-12] MEDS ORDERED: ACETAMINOPHEN 325 MG TAB PO PRN (04:00)
[2019-01-12] MEDS ORDERED: ONDANSETRON 4 MG INJ IV PRN (04:00)
--- NOTE | 2019-01-12 04:14 | ERD ---
ER Documentation Chief Complaint Chief Complaint REFFERED BY PCP; LOW PLATELETS; PREVIOUS HX; BLEEDING IN GUM HPI 33-year-old female with a history of sickle cell anemia and ITP sent in by her primary care doctor for low platelet count on blood work done today. She went in for routine exam. She did have gum bleeding today. She denies any other bleeding. She was recently admitted to the hospital for a low platelet count and had a transfusion done. She was initially diagnosed with ITP in 2010 but was in remission until recently. She is also complaining of back and bilateral leg pain that is aching, constant, 8 out of 10, possibly due to her sickle cell anemia. ROS All systems reviewed and are negative except as per history of present illness. Medications Home Meds Active Scripts Ondansetron (Ondansetron Odt) 8 Mg Tab.rapdis, 8 MG PO Q6H PRN for NAUSEA AND/OR VOMITING, #60 TAB Prov:ADEBAYO JACOBSEN MD 12/31/18 Cyanocobalamin* (Vitamin B12*) 500 Mcg Tab, 1000 MCG PO DAILY for 30 Days, TAB 2 Refills Prov:TORI RASHID MD 12/17/18 Liothyronine Sodium (Cytomel) 5 Mcg Tab, 5 MCG PO DAILY for 30 Days, TAB 2 Refills Prov:TORI RASHID MD 12/17/18 Levothyroxine Sodium* (Levothyroxine Sodium*) 100 Mcg Tablet, 300 MCG PO BEFORE BREAKFAST for 30 Days, TAB 2 Refills Prov:TORI RASHID MD 12/17/18 Reported Medications Cholecalciferol* (Vitamin D3*) 1,000 Unit Tablet, 1000 UNIT PO DAILY, TAB 11/08/18 Buprenorphine (Butrans) 1 Each Patch.tdwk, 1 EACH TD Q FRI 09/17/18 Oxycodone HCl/Acetaminophen (Oxycodone-Acetaminophen 10-325) 1 Each Tablet, 1 EACH PO TID, TAB 09/17/18 Allergies Allergies: Coded Allergies: immune globulin,gamma (IgG) human (Verified Adverse Reaction, Mild, HYPOTENSION, 12/28/18) PATIENT HAS RECEIVED IVIG IN THE PAST. MONITOR BP IF GIVEN PMhx/Soc History of Surgery: Yes (Csection 2009 Splenectory 2010 IVC filter 2013) Anesthesia Reaction: No Hx Neurological Disorder: No Hx Respiratory Disorders: No Hx Cardiac Disorders: No Hx Psychiatric Problems: No Hx Miscellaneous Medical Probl: Yes (Lupus, Sickle Cell, Fibromyalgia, Chronic Anemia, THROMBOCYTOPENIA) Hx Alcohol Use: No Hx Substance Use: No Hx Tobacco Use: No Smoking Status: Never smoker FmHx Family History: No diabetes Physical Exam Vitals Vital Signs Date Temp Pulse Resp B/P (MAP) Pulse Ox O2 O2 Flow FiO2 Time Delivery Rate 01/12/19 70 16 114/103 100 Room Air 01:42 (107) 01/11/19 98.7 81 18 140/83 100 22:08 (102) Physical Exam Const: No acute distress, well-appearing, nontoxic Head: Atraumatic Eyes: Normal Conjunctiva ENT: Normal External Ears, Nose and Mouth. No active bleeding noted intraorally. Neck: Full range of motion. No meningismus. Resp: Clear to auscultation bilaterally Cardio: Regular rate and rhythm, no murmurs Abd: Soft, non tender, non distended. Normal bowel sounds Skin: No petechiae or rashes Back: No midline or flank tenderness Ext: No cyanosis, or edema Neur: Awake and alert, normal speech, moving all extremities Psych: Normal Mood and Affect Result Diagram: 01/12/19 0137 Results 24 hrs Laboratory Tests Test 01/12/19 01:37 01/12/19 03:52 White Blood Count 9.0 10^3/ul Red Blood Count 3.20 10^6/ul Hemoglobin 10.4 g/dl Hematocrit 31.1 % Mean Corpuscular Volume 97.2 fl Mean Corpuscular Hemoglobin 32.5 pg Mean Corpuscular Hemoglobin Concent 33.4 g/dl Red Cell Distribution Width 17.5 % Platelet Count 2 10^3/UL Mean Platelet Volume fl Immature Granulocytes % 0.600 % Neutrophils % 59.5 % Lymphocytes % 26.5 % Monocytes % 10.5 % Eosinophils % 2.1 % Basophils % 0.8 % Nucleated Red Blood Cells % 0.0 /100WBC Immature Granulocytes # 0.050 10^3/ul Neutrophils # 5.3 10^3/ul Lymphocytes # 2.4 10^3/ul Monocytes # 0.9 10^3/ul Eosinophils # 0.2 10^3/ul Basophils # 0.1 10^3/ul Nucleated Red Blood Cells # 0.0 10^3/ul POC Beta HCG, Qualitative NEGATIVE Current Medications Medications Dose Sig/Navi Start Time Status Last (Trade) Ordered Route PRN Stop Time Admin Dose Reason Admin Sodium 0 ml @ 0 Q0M ONCE 01/12/19 DC Chloride mls/hr IV 02:01 01/12/19 02:03 Morphine 6 mg ONCE ONCE 01/12/19 DC 01/12/19 Sulfate IV 03:30 03:35 (morphine) 01/12/19 03:31 Ondansetron 4 mg BRIDGE ORDER 01/12/19 HCl (Zofran PRN IV 04:00 Inj) NAUSEA/VOMITI 01/13/19 03:59 NG 650 mg ER BRIDGE 01/12/19 Acetaminophen PRN PO 04:00 (Tylenol .MILD PAIN 01/13/19 03:59 Tab) 1-3 OR TEMP 40 mg ONCE ONCE 01/12/19 Dexamethasone IV 04:30 (Decadron) 01/12/19 04:31 Procedures/MDM EMERGENT LABS AND DIAGNOSTIC STUDIES: Lab Results above were reviewed and interpreted by me. CBC: Mild anemia. Severe thrombocytopenia with platelet count 2000 n negative Initial Nursing notes reviewed. Previous Medical Records requested via the Electronic Health Record. EMERGENCY DEPARTMENT COURSE / MEDICAL DECISION MAKING: Patient is presenting with severe thrombocytopenia but no evidence of severe bleeding. Doubt intracranial hemorrhage. Hemodynamically stable. Platelet tr ansfusion ordered. Spoke with the web specialist that saw her on her last admission. Recommended 40 mg Decadron and platelet transfusion. She will also need IVIG. I will defer this to the inpatient team. Critical Care Management of Severe thrombocytopenia: Time: 35 minutes Treatments/Evaluations: Close monitoring and management of bleeding sources while maintaining tight balance of fluid. With judicious assessment of anemia, coagulopathy and thrombocytopenia, while considering correction with blood products and medical therapy. Accepting Care Team: Current data and ongoing care discussed. Time: Time of admission Primary Provider: Dr. Hoyos Consulting: Dr Oro with Heme/Onc Outstanding Data: none Departure Diagnosis: Primary Impression: Severe thrombocytopenia Additional Impression: Idiopathic thrombocytopenic purpura (ITP) Condition: DANAY Mosley MD Jan 12, 2019 04:14
[2019-01-12] MEDS ORDERED: DEXAMETHASONE 10 MG/ML 1 ML INJ IV ONE (04:30)
[2019-01-12] MEDS ORDERED: morphine 4 MG/ML VIAL IV ONE (06:31)
[2019-01-12] MEDS ORDERED: ACETAMINOPHEN 500 MG TAB PO PRN (07:30)
[2019-01-12] MEDS ORDERED: IMMUNE GLOBULIN (HUMAN) 6 GM INJ IV SCH (09:00)
[2019-01-12] MEDS: DOCUSATE SODIUM 100 MG CAP PO SCH ×2 (09:00→20:08)
[2019-01-12] MEDS: HYDROmorphONE 2 MG/ML SYG IV PRN ×4 (09:34→21:43)
[2019-01-12] MEDS ORDERED: DIPHENHYDRAMINE 50 MG CAP PO ONE (10:00)
[2019-01-12] MEDS: ONDANSETRON 4 MG INJ IV PRN (12:44)
[2019-01-12] MEDS ORDERED: DEXAMETHASONE 4 MG TAB PO ONE ×2 (14:00→20:00)
[2019-01-12] MEDS: DIPHENHYDRAMINE 50 MG INJ IV PRN ×2 (14:26→21:42)
[2019-01-12] MEDS: GLY IVPB SCH (14:33)
[2019-01-12] MEDS: IGA AVG IVPB SCH (14:33)
[2019-01-12] MEDS: EVAC CONTAINER IVPB SCH (14:33)
[2019-01-12] MEDS: IMMUNE GLOBUL IVPB SCH (14:33)
--- NOTE | 2019-01-12 14:34 | HP ---
DATE OF ADMISSION: 01/12/2019 REASON FOR VISIT: Referred by PCP for low platelets. HISTORY OF PRESENT ILLNESS: A 33-year-old -[place] female with history of sickle cell anemia and ITP, was seen by her primary care provider and reported bleeding from her gums. She was referre d to Emergency Room and found to have a platelet count of 2000. The patient denies any hematemesis. No bright red blood per rectum or melena. No vaginal bleeding. She has had several admissions for ITP. Her condition has been resistant to splenectomy, steroids and Rituxan. The patient has require d IVIG and Decadron during each admission. She was with platelet pheresis. Repeat platelet was 74,0 00. Her hemoglobin is 9.2. Her sickle pain is under control. PAST MEDICAL HISTORY: 1. Sickle cell anemia. 2. ITP. 3. Hypothyroidism. PAST SURGICAL HISTORY: Status post splenectomy. MEDICATIONS PRIOR TO ADMISSION: 1. Vitamin D supplement. 2. Vitamin B12 supplement. 3. Levothyroxine 300 mcg daily. 4. Cytomel 5 mg daily. 5. Oxycodone/Tylenol 1 tablet 3 times daily as needed. SOCIAL HISTORY: Patient lives at home. She is with 1 child who is 8 years old. PHYSICAL EXAMINATION: GENERAL: Well-developed, well-nourished female who is in no apparent distress. VITAL SIGNS: Stable. She is afebrile. HEENT: Extraocular muscles intact. Pupils equal and reactive to light bilaterally. CARDIAC: Regular rate and rhythm. No murmurs or gallops. ABDOMEN: Soft, nontender, nondistended. Normoactive bowel sounds. EXTREMITIES: No clubbing, cyanosis or edema. NEUROLOGICAL: Grossly nonfocal. ASSESSMENT: 1. A 33-year-old female with recurrent thrombocytopenia due to ITP. Patient has been transfused wit h platelet phoresis with repeat platelet count of 74,000. There is a medication called which h as been approved for our patient and patient has not started it yet. 2. Sickle cell anemia, stable. 3. Profound hypothyroidism, on thyroid supplement. However, TSH remains quite elevated at 167 with a free T4 of 0.28. PLAN: 1. Admit to med/surg. 2. Proceed with IVIG 1 mg/kg daily for 3 days. 3. Resume Decadron orally. 4. Continue thyroid supplement. 5. Endocrine and hematology consultations are requested. Dictated By: TORI TAYLOR/LINH Conf#: [id number] [employer]#: [id number] CC: LADI REVELES MD; SONIA HUGHES;*End*
[2019-01-12] MEDS: LIOTHYRONINE 5 MCG TAB PO SCH (16:51)
--- NOTE | 2019-01-12 18:32 | CONS ---
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 Consultation Date/Type/Reason Admit Date/Time Jan 12, 2019 at 03:42 Date of Consultation: Jan 12, 2019 Type of Consult Hematology-Oncology Initial Consult Note Reason for Consultation ITP Date/Time of Note DATE: 01/12/19 TIME: 18:27 Hx of Present Illness 33 year old female with refractory ITP. She is followed by Dr. Holguin as an ou tpatient and is resistant to steroids, splenectomy and rituximab in the past. She responded to Promacta but there was concern of thromboembolic side effects. She has had multiple recent admissions for thrombocytopenia and received IVIG with improvement. She recently had outpatient bloodwork by her PMD which showed a platelet count of 6K and she also had gum bleeding. Here platelets were 2,000 and she received 1u platelets and started on IVIG. Plan was to start Tavalisse as an outpatient and she will be receiving the medication on Tuesday. She endorses gum bleeding but no other bruising or bleeding issues. Constitutional: no complaints Eyes: no complaints ENT: no complaints Respiratory: no complaints Cardiovascular: no complaints Gastrointestinal: no complaints Genitourinary: no complaints Musculoskeletal: bone/joint pain Skin: no complaints Neurologic: no complaints Endocrine: no complaints Lymphatic: no complaints Psychological: no complaints Immunologic: no complaints (see HPI) Past Medical History Medical History: hypothyroid Home Meds Active Scripts Ondansetron (Ondansetron Odt) 8 Mg Tab.rapdis, 8 MG PO Q6H PRN for NAUSEA AND/OR VOMITING, #60 TAB Prov:ADEBAYO JACOBSEN MD 12/31/18 Cyanocobalamin* (Vitamin B12*) 500 Mcg Tab, 1000 MCG PO DAILY for 30 Days, TAB 2 Refills Prov:TORI RASHID MD 12/17/18 Liothyronine Sodium (Cytomel) 5 Mcg Tab, 5 MCG PO DAILY for 30 Days, TAB 2 Refills Prov:TORI RASHID MD 12/17/18 Levothyroxine Sodium* (Levothyroxine Sodium*) 100 Mcg Tablet, 300 MCG PO BEFORE BREAKFAST for 30 Days, TAB 2 Refills Prov:TORI RASHID MD 12/17/18 Reported Medications Cholecalciferol* (Vitamin D3*) 1,000 Unit Tablet, 1000 UNIT PO DAILY, TAB 11/08/18 Buprenorphine (Butrans) 1 Each Patch.tdwk, 1 EACH TD Q FRI 09/17/18 Oxycodone HCl/Acetaminophen (Oxycodone-Acetaminophen 10-325) 1 Each Tablet, 1 EACH PO TID, TAB 09/17/18 Medications Current Medications Acetaminophen (Tylenol Tab) 1,000 mg Q6H PRN PO FEVER GREATER THAN 100.6; Start 01/12/19 at 07:30 Ondansetron HCl (Zofran Inj) 4 mg Q6H PRN IV NAUSEA Last administered on 01/12/19at 12:44; Admin Dose 4 MG; Start 01/12/19 at 07:30 Hydromorphone HCl (Dilaudid) 1 mg Q3H PRN IV PAIN Last administered on 01/12/19at 16:53; Admin Dose 1 MG; Start 01/12/19 at 07:30 Docusate Sodium (Colace) 100 mg BID PO ; Start 01/12/19 at 09:00 Immune Globulin 60 gm/Device 600 ml @ 108.333 mls/hr Q24H IVPB Last administered on 01/12/19at 14:33; Admin Dose 108.333 MLS/HR; Start 01/12/19 at 14:00; Stop 01/14/19 at 19:33 Diphenhydramine HCl (Benadryl) 50 mg Q6H PRN IV BEFORE IVIG TREATMENT AND PRN Last administered on 01/12/19at 14:26; Admin Dose 50 MG; Start 01/12/19 at 13:00 Levothyroxine Sodium (Synthroid) 300 mcg BEFORE BREAKFAST PO ; Start 01/13/19 at 07:00 Liothyronine Sodium (Cytomel) 5 mcg DAILY PO Last administered on 01/12/19at 16:51; Admin Dose 5 MCG; Start 01/12/19 at 13:30 Pantoprazole (Protonix Tab) 40 mg DAILY@06 PO ; Start 01/13/19 at 06:00 Dexamethasone (Decadron) 40 mg DAILY PO ; Start 01/13/19 at 09:00 Allergies: Coded Allergies: immune globulin,gamma (IgG) human (Unverified Adverse Reaction, Mild, HYPOTENSION, 01/12/19) PATIENT HAS RECEIVED IVIG IN THE PAST. MONITOR BP IF GIVEN Past Surgical History Past Surgical Hx: other (splenectomy) Social History Alcohol Use: none Smoking Status: Never smoker Exam/Review of Systems Exam Vitals Vital Signs Date Temp Pulse Resp B/P (MAP) Pulse Ox O2 O2 Flow FiO2 Time Delivery Rate 01/12/19 53 119/79 17:27 (92) 01/12/19 98.6 18 97 15:38 01/12/19 Room Air 09:04 Intake and Output 01/11/19 01/11/19 01/12/19 1515:00 23:00 07:00 IntakeIntake Total 350 ml BalanceBalance 350 ml Constitutional: alert, oriented, well developed Psych: no complaints Head: normocephalic, atraumatic Eyes: nl conjunctiva ENMT: mucosa pink and moist Respiratory: clear to auscultation Cardiovascular: regular rate and rhythm Gastrointestinal: soft, non-tender Musculoskeletal: nl extremities to inspection Neurological: FIELD SUPERINTENDENT II-XII intact Results Result Diagram: 01/12/19918 Results 24hrs Laboratory Tests Test 01/12/19 01:37 01/12/19 03:52 01/12/19 09:19 White Blood Count 9.0 16.5 #H Red Blood Count 3.20 L 2.88 L Hemoglobin 10.4 L 9.2 L Hematocrit 31.1 L 27.2 L Mean Corpuscular Volume 97.2 94.4 Mean Corpuscular Hemoglobin 32.5 31.9 Mean Corpuscular Hemoglobin Concent 33.4 33.8 Red Cell Distribution Width 17.5 H 17.0 H Platelet Count 2 #*L 74 #L Mean Platelet Volume 9.3 # Immature Granulocytes % 0.600 H 0.800 H Neutrophils % 59.5 86.4 H Lymphocytes % 26.5 8.0 L Monocytes % 10.5 3.5 Eosinophils % 2.1 0.9 Basophils % 0.8 0.4 Nucleated Red Blood Cells % 0.0 0.0 Immature Granulocytes # 0.050 H 0.130 H Neutrophils # 5.3 14.3 H Lymphocytes # 2.4 1.3 Monocytes # 0.9 0.6 Eosinophils # 0.2 0.1 Basophils # 0.1 0.1 Nucleated Red Blood Cells # 0.0 0.0 POC Beta HCG, Qualitative NEGATIVE Thyroid Stimulating Hormone (TSH) 167.000 H Free Thyroxine 0.28 L Medications Medication Current Medications Acetaminophen (Tylenol Tab) 1,000 mg Q6H PRN PO FEVER GREATER THAN 100.6; Start 01/12/19 at 07:30 Ondansetron HCl (Zofran Inj) 4 mg Q6H PRN IV NAUSEA Last administered on 01/12/19 12:44; Admin Dose 4 MG; Start 01/12/19 at 07:30 Hydromorphone HCl (Dilaudid) 1 mg Q3H PRN IV PAIN Last administered on 01/12/19at 16:53; Admin Dose 1 MG; Start 01/12/19 at 07:30 Docusate Sodium (Colace) 100 mg BID PO ; Start 01/12/19 at 09:00 Immune Globulin 60 gm/Device 600 ml @ 108.333 mls/hr Q24H IVPB Last administered on 01/12/19at 14:33; Admin Dose 108.333 MLS/HR; Start 01/12/19 at 14:00; Stop 01/14/19 at 19:33 Diphenhydramine HCl (Benadryl) 50 mg Q6H PRN IV BEFORE IVIG TREATMENT AND PRN Last administered on 01/12/19at 14:26; Admin Dose 50 MG; Start 01/12/19 at 13:00 Levothyroxine Sodium (Synthroid) 300 mcg BEFORE BREAKFAST PO ; Start 01/13/19 at 07:00 Liothyronine Sodium (Cytomel) 5 mcg DAILY PO Last administered on 01/12/19at 16:51; Admin Dose 5 MCG; Start 01/12/19 at 13:30 Pantoprazole (Protonix Tab) 40 mg DAILY@06 PO ; Start 01/13/19 at 06:00 Dexamethasone (Decadron) 40 mg DAILY PO ; Start 01/13/19 at 09:00 SONIA HUGHES MD Jan 12, 2019 18:32
[2019-01-13] VITALS: BP 120/58; PULSE 50; RESP 16
[2019-01-13 04:25] VITALS: BP 112/76; PULSE 68
[2019-01-13] MEDS: ONDANSETRON 4 MG INJ IV PRN (04:47)
[2019-01-13] MEDS: HYDROmorphONE 2 MG/ML SYG IV PRN ×4 (04:47→19:51)
[2019-01-13] MEDS: PANTOPRAZOLE (EC) 40 MG TAB PO SCH (06:38)
[2019-01-13] MEDS ORDERED: LEVOTHYROXINE 100 MCG TAB PO SCH (07:00)
[2019-01-13 08:11] VITALS: BP 101/60; PULSE 77; RESP 16
[2019-01-13] MEDS: LIOTHYRONINE 5 MCG TAB PO SCH ×2 (08:45→22:28)
[2019-01-13] MEDS: DOCUSATE SODIUM 100 MG CAP PO SCH ×2 (08:45→22:27)
[2019-01-13] MEDS: DIPHENHYDRAMINE 50 MG INJ IV PRN ×3 (08:46→22:27)
[2019-01-13] MEDS ORDERED: DEXAMETHASONE 4 MG TAB PO SCH (09:00)
--- NOTE | 2019-01-13 09:21 | PN ---
Date/Time of Note Date/Time of Note DATE: 01/13/19 TIME: 09:19 Subjective Doing well. No new complaints. Objective Vitals Vital Signs Date Temp Pulse Resp B/P (MAP) Pulse Ox O2 O2 Flow FiO2 Time Delivery Rate 01/13/19 97.9 77 16 101/60 98 Room Air 08:11 (74) Intake and Output 01/12/19 01/12/19 01/13/19 1515:00 23:00 07:00 IntakeIntake Total 700 ml 500 ml BalanceBalance 700 ml 500 ml Clear to auscultation bilaterally Regular rate and rhythm Soft nontender nondistended normoactive bowel sounds No edema Nonfocal Results Result Diagram: 01/13/19 0524 Medications Medications Current Medications Acetaminophen (Tylenol Tab) 1,000 mg Q6H PRN PO FEVER GREATER THAN 100.6; Start 01/12/19 at 07:30 Ondansetron HCl (Zofran Inj) 4 mg Q6H PRN IV NAUSEA Last administered on 01/13/19at 04:47; Admin Dose 4 MG; Start 01/12/19 at 07:30 Hydromorphone HCl (Dilaudid) 1 mg Q3H PRN IV PAIN Last administered on 01/13/19 08:46; Admin Dose 1 MG; Start 01/12/19 at 07:30 Docusate Sodium (Colace) 100 mg BID PO Last administered on 01/13/19at 08:45; Admin Dose 100 MG; Start 01/12/19 at 09:00 Immune Globulin 60 gm/Device 600 ml @ 108.333 mls/hr Q24H IVPB Last administe red on 01/12/19at 14:33; Admin Dose 108.333 MLS/HR; Start 01/12/19 at 14:00; Stop 01/14/19 at 19:33 Diphenhydramine HCl (Benadryl) 50 mg Q6H PRN IV BEFORE IVIG TREATMENT AND PRN Last administered on 01/13/19at 08:46; Admin Dose 50 MG; Start 01/12/19 at 13:00 Levothyroxine Sodium (Synthroid) 300 mcg BEFORE BREAKFAST PO Last administered on 01/13/19at 06:38; Admin Dose 300 MCG; Start 01/13/19 at 07:00 Liothyronine Sodium (Cytomel) 5 mcg DAILY PO Last administered on 01/13/19at 08:45; Admin Dose 5 MCG; Start 01/12/19 at 13:30 Pantoprazole (Protonix Tab) 40 mg DAILY@06 PO Last administered on 01/13/19at 06:38; Admin Dose 40 MG; Start 01/13/19 at 06:00 Dexamethasone (Decadron) 40 mg DAILY PO ; Start 01/13/19 at 09:00 VTE Prophylaxis SCD applied (from Ns): Yes Lines/Catheters IV Catheter Type: Saline Lock Taylor in Place: No Assessment/Plan Assessment/Plan 33-year-old female with refractory ITP. Platelet count is going down despite IVIG and Decadron Sickle cell anemia Profound hypothyroidism despite high supplementation Continue IVIG for total of 3 days Continue Decadron 40 mg daily Await endocrinology evaluation TORI RASHID MD Jan 13, 2019 09:21
[2019-01-13] MEDS: DEXAMETHASONE 4 MG TAB PO SCH (09:52)
--- NOTE | 2019-01-13 10:49 | CONS ---
Assessment/Plan Assessment/Plan Problems: (1) Hypothyroid Status: Chronic Comment: She is actually still significantly hypothyroid with a very low free T4. We will need to go ahead and give her a single dosage of IV levothyroxine to help bring the levels up. Adjusting the oral medications although she is c learly moving in the right direction having her TSH go down by 50% in a 5 week timeframe. For now we can use the liothyronine 5 mcg twice daily, and then leave the levothyroxine 300 mcg p.o. once a day. She may actually end up needing to take the levothyroxine is 200 mcg twice daily with the liothyronine. Qualifiers: Qualified Codes: E03.9 - Hypothyroidism, unspecified Consultation Date/Type/Reason Admit Date/Time Jan 12, 2019 at 03:42 Date of Consultation: Jan 13, 2019 Type of Consult Endocrine Reason for Consultation Hypothyroidism with requirement for above average dosages of thyroid hormone replacement. At this time her admission TSH is in the 160s however a few weeks ago it was above 300. 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 Had multiple visits where her TSH was quite remarkable but one visit in January 2018 were TSH was normalized. She reports after her last discharge she got her medicine a few days later and has been steadily taking it as prescribed. 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;) Home Meds Active Scripts Ondansetron (Ondansetron Odt) 8 Mg Tab.rapdis, 8 MG PO Q6H PRN for NAUSEA AND/OR VOMITING, #60 TAB Prov:ADEBAYO JACOBSEN MD 12/31/18 Cyanocobalamin* (Vitamin B12*) 500 Mcg Tab, 1000 MCG PO DAILY for 30 Days, TAB 2 Refills Prov:TORI RASHID MD 12/17/18 Liothyronine Sodium (Cytomel) 5 Mcg Tab, 5 MCG PO DAILY for 30 Days, TAB 2 Refills Prov:TORI RASHID MD 12/17/18 Levothyroxine Sodium* (Levothyroxine Sodium*) 100 Mcg Tablet, 300 MCG PO BEFORE BREAKFAST for 30 Days, TAB 2 Refills Prov:TORI RASHID MD 12/17/18 Reported Medications Cholecalciferol* (Vitamin D3*) 1,000 Unit Tablet, 1000 UNIT PO DAILY, TAB 11/08/18 Buprenorphine (Butrans) 1 Each Patch.tdwk, 1 EACH TD Q FRI 09/17/18 Oxycodone HCl/Acetaminophen (Oxycodone-Acetaminophen 10-325) 1 Each Tablet, 1 EACH PO TID, TAB 09/17/18 Medications Current Medications Acetaminophen (Tylenol Tab) 1,000 mg Q6H PRN PO FEVER GREATER THAN 100.6; Start 01/12/19 at 07:30 Ondansetron HCl (Zofran Inj) 4 mg Q6H PRN IV NAUSEA Last administered on 01/13/19at 04:47; Admin Dose 4 MG; Start 01/12/19 at 07:30 Hydromorphone HCl (Dilaudid) 1 mg Q3H PRN IV PAIN Last administered on 01/13/19at 08:46; Admin Dose 1 MG; Start 01/12/19 at 07:30 Docusate Sodium (Colace) 100 mg BID PO Last administered on 01/13/19at 08:45; Admin Dose 100 MG; Start 01/12/19 at 09:00 Immune Globulin 60 gm/Device 600 ml @ 108.333 mls/hr Q24H IVPB Last administered on 01/12/19at 14:33; Admin Dose 108.333 MLS/HR; Start 01/12/19 at 14:00; Stop 01/14/19 at 19:33 Diphenhydramine HCl (Benadryl) 50 mg Q6H PRN IV BEFORE IVIG TREATMENT AND PRN Last administered on 01/13/19at 08:46; Admin Dose 50 MG; Start 01/12/19 at 13:00 Levothyroxine Sodium (Synthroid) 300 mcg BEFORE BREAKFAST PO Last administered on 01/13/19at 06:38; Admin Dose 300 MCG; Start 01/13/19 at 07:00 Liothyronine Sodium (Cytomel) 5 mcg DAILY PO Last administered on 01/13/19at 08:45; Admin Dose 5 MCG; Start 01/12/19 at 13:30 Pantoprazole (Protonix Tab) 40 mg DAILY@06 PO Last administered on 01/13/19at 06:38; Admin Dose 40 MG; Start 01/13/19 at 06:00 Dexamethasone (Decadron) 40 mg DAILY PO Last administered on 01/13/19at 09:52; Admin Dose 40 MG; Start 01/13/19 at 09:00 Levothyroxine Sodium (Synthroid Iv) 300 mcg ONCE ONCE IV ; Start 01/13/19 at 11:30; Stop 01/13/19 at 11:31 Allergies: Coded Allergies: immune globulin,gamma (IgG) human (Unverified Adverse Reaction, Mild, HYPOTENSION, 01/12/19) PATIENT HAS RECEIVED IVIG IN THE PAST. MONITOR BP IF GIVEN Past Surgical History Past Surgical Hx: noncontributory, other (splenectomy) Family History Significant Family History: no pertinent family hx Social History Alcohol Use: none Smoking Status: Never smoker Exam/Review of Systems Exam Vitals Vital Signs Date Temp Pulse Resp B/P (MAP) Pulse Ox O2 O2 Flow FiO2 Time Delivery Rate 01/13/19 97.9 77 16 101/60 98 Room Air 08:11 (74) Intake and Output 01/12/19 01/12/19 01/13/19 1515:00 23:00 07:00 IntakeIntake Total 700 ml 500 ml BalanceBalance 700 ml 500 ml Constitutional: alert, oriented Neck: supple, non-tender Respiratory: clear to auscultation, normal air movement Cardiovascular: regular rate and rhythm, nl pulses Gastrointestinal: soft, nl liver, spleen, non-tender Results Result Diagram: 01/13/19523 Results 24hrs Laboratory Tests Test 01/13/19 05:24 White Blood Count 18.7 H Red Blood Count 2.76 L Hemoglobin 8.8 L Hematocrit 26.5 L Mean Corpuscular Volume 96.0 Mean Corpuscular Hemoglobin 31.9 Mean Corpuscular Hemoglobin Concent 33.2 Red Cell Distribution Width 17.3 H Platelet Count 51 #L Mean Platelet Volume 11.1 H Immature Granulocytes % 2.600 H Neutrophils % 90.0 H Lymphocytes % 4.8 L Monocytes % 2.5 Eosinophils % 0.0 Basophils % 0.1 Nucleated Red Blood Cells % 0.0 Immature Granulocytes # 0.480 H Neutrophils # 16.8 H Lymphocytes # 0.9 Monocytes # 0.5 Eosinophils # 0.0 Basophils # 0.0 Nucleated Red Blood Cells # 0.0 Medications Medication Current Medications Acetaminophen (Tylenol Tab) 1,000 mg Q6H PRN PO FEVER GREATER THAN 100.6; Start 01/12/19 at 07:30 Ondansetron HCl (Zofran Inj) 4 mg Q6H PRN IV NAUSEA Last administered on 01/13/19 04:47; Admin Dose 4 MG; Start 01/12/19 at 07:30 Hydromorphone HCl (Dilaudid) 1 mg Q3H PRN IV PAIN Last administered on 01/13/19 08:46; Admin Dose 1 MG; Start 01/12/19 at 07:30 Docusate Sodium (Colace) 100 mg BID PO Last administered on 01/13/19 08:45; Admin Dose 100 MG; Start 01/12/19 at 09:00 Immune Globulin 60 gm/Device 600 ml @ 108.333 mls/hr Q24H IVPB Last administered on 01/12/19 14:33; Admin Dose 108.333 MLS/HR; Start 01/12/19 at 14:00; Stop 01/14/19 at 19:33 Diphenhydramine HCl (Benadryl) 50 mg Q6H PRN IV BEFORE IVIG TREATMENT AND PRN Last administered on 01/13/19 08:46; Admin Dose 50 MG; Start 01/12/19 at 13:00 Levothyroxine Sodium (Synthroid) 300 mcg BEFORE BREAKFAST PO Last administered on 01/13/19 06:38; Admin Dose 300 MCG; Start 01/13/19 at 07:00 Liothyronine Sodium (Cytomel) 5 mcg DAILY PO Last administered on 01/13/19 08:45; Admin Dose 5 MCG; Start 01/12/19 at 13:30 Pantoprazole (Protonix Tab) 40 mg DAILY@06 PO Last administered on 01/13/19 06:38; Admin Dose 40 MG; Start 01/13/19 at 06:00 Dexamethasone (Decadron) 40 mg DAILY PO Last administered on 01/13/19 09:52; Admin Dose 40 MG; Start 01/13/19 at 09:00 Levothyroxine Sodium (Synthroid Iv) 300 mcg ONCE ONCE IV ; Start 01/13/19 at 11:30; Stop 01/13/19 at 11:31 TAMIKO TATE MD Jan 13, 2019 10:49
[2019-01-13] MEDS ORDERED: CYANOCOBALAMIN 1000 MCG INJ SC ONE (11:00)
[2019-01-13] MEDS ORDERED: LEVOTHYROXINE 100 MCG VIAL IV ONE (11:30)
[2019-01-13] MEDS ORDERED: LEVOTHYROXINE 500 MCG VIAL IV ONE (11:30)
[2019-01-13 12:22] VITALS: BP 120/77; PULSE 63; RESP 18
[2019-01-13 13:00] VITALS: BP 118/74; PULSE 75; RESP 18
[2019-01-13] MEDS: GLY IVPB SCH (15:34)
[2019-01-13] MEDS: EVAC CONTAINER IVPB SCH (15:34)
[2019-01-13] MEDS: IMMUNE GLOBUL IVPB SCH (15:34)
[2019-01-13] MEDS: IGA AVG IVPB SCH (15:34)
[2019-01-13 20:54] VITALS: BP 115/78; PULSE 56; RESP 18
[2019-01-13] MEDS: LEVOTHYROXINE 100 MCG TAB PO SCH (22:28)
[2019-01-14] MEDS: HYDROmorphONE 2 MG/ML SYG IV PRN ×5 (00:26→16:29)
[2019-01-14 00:29] VITALS: BP 118/69; PULSE 72; RESP 17
[2019-01-14] MEDS: ONDANSETRON 4 MG INJ IV PRN (04:22)
[2019-01-14 04:28] VITALS: BP 115/56; PULSE 70; RESP 19
[2019-01-14] MEDS: PANTOPRAZOLE (EC) 40 MG TAB PO SCH (05:25)
[2019-01-14] MEDS: DIPHENHYDRAMINE 50 MG INJ IV PRN ×2 (05:25→12:08)
[2019-01-14] MEDS: LEVOTHYROXINE 100 MCG TAB PO SCH (06:31)
[2019-01-14 07:45] VITALS: BP 111/69; PULSE 55; RESP 19
[2019-01-14] MEDS: DOCUSATE SODIUM 100 MG CAP PO SCH (08:40)
[2019-01-14] MEDS: LIOTHYRONINE 5 MCG TAB PO SCH (08:40)
[2019-01-14] MEDS: DEXAMETHASONE 4 MG TAB PO SCH (08:41)
--- NOTE | 2019-01-14 09:19 | PDOCDIS ---
Discharge Instructions CONDITION [id number] Patient Condition: [id number] Good HOME CARE INSTRUCTIONS: [id number] Diet Instructions: [id number] Regular ACTIVITY: [id number] Activity Restrictions: [id number] No Restrictions FOLLOW UP/APPOINTMENTS Follow-up Plan pcp 1 week hematology 1 week endocrinology 4 weeks TORI RASHID MD Jan 14, 2019 09:19
[2019-01-14 11:53] VITALS: BP 111/74; PULSE 53; RESP 19
[2019-01-14] MEDS: IMMUNE GLOBUL IVPB SCH (12:55)
[2019-01-14] MEDS: EVAC CONTAINER IVPB SCH (12:55)
[2019-01-14] MEDS: GLY IVPB SCH (12:55)
[2019-01-14] MEDS: IGA AVG IVPB SCH (12:55)
[2019-01-14] MEDS ORDERED: DIPHENHYDRAMINE 50 MG INJ IV ONE (13:00)
--- NOTE | 2019-01-14 13:10 | CONS ---
Assessment/Plan Assessment/Plan Problems: (1) Hypothyroid Status: Chronic Comment: We are deliberately giving her an above average dose based on the historical information we have on her. Clearly the dosage that she came in on was having an effect but not enough of the effect based on the free T4. Therefore I have increased to what would be considered somewhat unusual dosing and the average human of levothyroxine 200 mcg twice daily with liothyronine 5 mcg twice daily. She has a difference in her GI tract absorption of the medications. I will see her in follow-up in the office in 5 weeks at which p oint we will check her labs and then titrate to getting her into a normal range. Qualifiers: Hypothyroidism type: acquired Qualified Codes: E03.9 - Hypothyroidism, unspecified Consultation Date/Type/Reason Admit Date/Time Jan 12, 2019 at 03:42 Initial Consult Date 01/13/19 Type of Consult Endocrine Reason for Consultation Hypothyroidism without myxedema Requesting Provider: TORI RASHID MD Date/Time of Note DATE: 01/14/19 TIME: 13:09 24 HR Interval Summary Free Text/Dictation Patient reports she is feeling better today Constitutional: no complaints Detailed Summary Endocrine: no complaints Exam/Review of Systems Exam Vitals Vital Signs Date Temp Pulse Resp B/P (MAP) Pulse Ox O2 O2 Flow FiO2 Time Delivery Rate 01/14/19 98.0 53 19 111/74 99 Room Air 11:53 (86) Intake and Output 01/13/19 01/13/19 01/14/19 1515:00 23:00 07:00 IntakeIntake Total 950 ml 1520 ml BalanceBalance 950 ml 1520 ml Exam No change in physical examination Results Result Diagram: 01/14/19 0526 Results 24hrs Laboratory Tests Test 01/14/19 05:26 White Blood Count 34.5 #H Red Blood Count 2.63 L Hemoglobin 8.3 L Hematocrit 26.3 L Mean Corpuscular Volume 100.0 Mean Corpuscular Hemoglobin 31.6 Mean Corpuscular Hemoglobin Concent 31.6 L Red Cell Distribution Width 17.6 H Platelet Count 60 L Mean Platelet Volume 12.0 H Immature Granulocytes % 4.400 H Neutrophils % 88.2 H Segmented Neutrophils % (Manual) 90 H Band Neutrophils % (Manual) 3 Lymphocytes % 2.8 L Lymphocytes % (Manual) 4 L Monocytes % 4.5 Monocytes % (Manual) 2 Eosinophils % 0.0 Basophils % 0.1 Myelocytes % (Manual) 1 H Nucleated Red Blood Cells % 0.1 H Immature Granulocytes # 1.510 H Neutrophils # 30.5 H Neutrophils # (Manual) 31.4 H Band Neutrophils # 1.0 H Lymphocytes (Manual) 1.3 Lymphocytes # 1.0 Monocytes # 1.6 H Monocytes # (Manual) 0.6 Eosinophils # 0.0 Basophils # 0.1 Myelocytes # 0.3 H Nucleated Red Blood Cells # 0.0 Platelet Estimate DECREASED Polychromasia 3+ Anisocytosis 1+ Macrocytosis 1+ Medications Medication Current Medications Acetaminophen (Tylenol Tab) 1,000 mg Q6H PRN PO FEVER GREATER THAN 100.6; Start 01/12/19 at 07:30 Ondansetron HCl (Zofran Inj) 4 mg Q6H PRN IV NAUSEA Last administered on 01/14/19 04:22; Admin Dose 4 MG; Start 01/12/19 at 07:30 Hydromorphone HCl (Dilaudid) 1 mg Q3H PRN IV PAIN Last administered on 01/14/19 12:08; Admin Dose 1 MG; Start 01/12/19 at 07:30 Docusate Sodium (Colace) 100 mg BID PO Last administered on 01/14/19 08:40; Admin Dose 100 MG; Start 01/12/19 at 09:00 Immune Globulin 60 gm/Device 600 ml @ 108.333 mls/hr Q24H IVPB Last administered on 01/14/19 12:55; Admin Dose 108.333 MLS/HR; Start 01/12/19 at 14:00; Stop 01/14/19 at 19:33 Diphenhydramine HCl (Benadryl) 50 mg Q6H PRN IV BEFORE IVIG TREATMENT AND PRN Last administered on 01/14/19 12:08; Admin Dose 50 MG; Start 01/12/19 at 13:00 Pantoprazole (Protonix Tab) 40 mg DAILY@06 PO Last administered on 01/14/19 05:25; Admin Dose 40 MG; Start 01/13/19 at 06:00 Dexamethasone (Decadron) 40 mg DAILY PO Last administered on 01/14/19 08:41; Admin Dose 40 MG; Start 01/13/19 at 09:00 Levothyroxine Sodium (Synthroid) 200 mcg BID@0700,2100 PO Last administered on 01/14/19at 06:31; Admin Dose 200 MCG; Start 01/13/19 at 21:00 Liothyronine Sodium (Cytomel) 5 mcg BID PO Last administered on 01/14/19at 08:40; Admin Dose 5 MCG; Start 01/13/19 at 21:00 Diphenhydramine HCl (Benadryl) 25 mg ONCE ONCE IV Last administered on 01/14/19at 12:57; Admin Dose 25 MG; Start 01/14/19 at 13:00; Stop 01/14/19 at 13:01 TAMIKO TATE MD Jan 14, 2019 13:10
[2019-01-14 15:58] VITALS: BP 125/76; PULSE 51; RESP 19
[2019-01-14 18:01] VITALS: BP 126/79; PULSE 68; RESP 18
--- NOTE | 2019-01-19 06:14 | DS ---
DATE OF ADMISSION: 01/12/2019 DATE OF DISCHARGE: 01/14/2019 DISCHARGE DIAGNOSES: 1. A 33-year-old female with recurrent ITP. 2. Sickle cell anemia. 3. Sickle pain. 4. Profound hypothyroidism. HOSPITAL COURSE: The patient is a 33-year-old very pleasant -[place] female with a long hist ory of ITP and sickle cell anemia who presented to the Emergency Room with a complaint of bleeding gu ms. The patient was found to have a platelet count of 2,000. She received a platelet transfusion. Hematology consultation was requested. The patient was started on IVIg for a period of 3 days. She was also started on high dose dexamethasone. Her platelet count was 60,000 on the day of discharge. The hemoglobin remained stable at 8.3. The patient was also noted have persistent hypothyroidism. Her TSH was 167 with a T4 of 0.28. This was improved compared to the previous evaluation. The patient was seen in consultation by Dr. Aldrich. Cytomel and Synthroid were increased. The patient was discharged home in a stable condition. MEDICATIONS ON DISCHARGE: 1. Dexamethasone 40 mg p.o. daily for an additional 2 days. 2. Levothyroxine 200 mcg b.i.d. 3. Cytomel 5 mcg b.i.d. 4. Butrans 1 every Tuesday. 5. Oxycodone/ Tylenol 10/325 one tablet 3 times daily as needed. DISCHARGE PLAN: 1. Follow up with PCP in 1 week. 2. Follow up with Dr. Oro in 1 week. 3. Follow up with endocrinology as outpatient. Dictated By: TORI TAYLOR/LINH Conf#: [id number] DID#: [id number] CC: TAMIKO ALDRICH MD; Mei Oro MD;*EndCC*
[2019-01-31] MEDS ORDERED: DEXAMETHASONE 4 MG TAB PO SCH (16:00)
== END 2019-01-14 18:04 | disposition home or self-care (01) | DRG 813 ==
LOC: E/R 21:56 → 6WM 01-12 03:42 → EDBEDREQSVC 01-12 07:18
PROVIDERS: ADMIT Internal Medicine; ATTEND Internal Medicine
PROC: 6A550Z2 Pheresis of Platelets, Single (ICD-10-PCS; principal; 2019-01-12)
DX: D69.3 Immune thrombocytopenic purpura (principal); D57.1 Sickle-cell disease without crisis; E03.9 Hypothyroidism, unspecified
CPT/HCPCS: 36415; 36430; 81025; 82533; 84439; 84443; 85025; 86644; 86850; 86900; 86901; 96374; J1100; J1170; J1200; J1459; J2270; J2405; J3420; J7040; P9035

== ENCOUNTER 2019-01-31 11:01 | Inpatient (IN) | payer OTHER ==
[~2019-01-31] VITALS: Ht 167.6 cm; Wt 65.7 kg
[2019-01-31] VITALS (7 sets, daily range): BP systolic 102–118; BP diastolic 60–72; PULSE 61–72; RESP 16–20; Ht 167.6 cm; Wt 65.7 kg
[~2019-01-31 11:01] MED LIST changes: +ELTR50TA PO
[2019-01-31] MEDS ORDERED: HYDROmorphONE 2 MG/ML SYG IV STA (12:08)
[2019-01-31] MEDS ORDERED: SOD CHLORIDE 0.9% 0 ML IV ONE (13:47)
[2019-01-31] MEDS ORDERED: ONDANSETRON 4 MG INJ IV STA (13:50)
[2019-01-31] MEDS ORDERED: HYDROmorphONE 0.5 MG/0.5 ML SYG IV STA (13:50)
[2019-01-31] MEDS ORDERED: ONDANSETRON 4 MG INJ IV PRN ×2 (14:00→16:00)
[2019-01-31] MEDS ORDERED: DEXAMETHASONE 10 MG/ML 1 ML INJ IV ONE (14:00)
[2019-01-31] MEDS ORDERED: ACETAMINOPHEN 325 MG TAB PO PRN ×2 (14:00→16:00)
[2019-01-31] MEDS ORDERED: DOCUSATE SODIUM 100 MG CAP PO PRN (16:00)
[2019-01-31] MEDS ORDERED: NACL 0.9% 3 ML SYG IV SCH (16:00)
[2019-01-31] MEDS ORDERED: GAMUNEX C IV SCH (16:30)
[2019-01-31] MEDS ORDERED: DEXAMETHASONE 4 MG TAB PO SCH (16:30)
[2019-01-31] MEDS ORDERED: OXYCODONE/ACETAMINOPHEN (10/325) TAB PO PRN (17:30)
[2019-01-31] MEDS: HYDROmorphONE 1 MG/ML SYG IV PRN ×2 (18:31→21:28)
[2019-01-31] MEDS: DIPHENHYDRAMINE 50 MG INJ IV PRN (19:02)
[2019-01-31] MEDS: LIOTHYRONINE 5 MCG TAB PO SCH (21:01)
[2019-01-31] MEDS: LEVOTHYROXINE 100 MCG TAB PO SCH (21:02)
[2019-01-31] MEDS: FAMOTIDINE 20 MG TAB PO SCH (21:02)
[2019-01-31] MEDS: IMMUNE GLOBUL G/GLY/IGA AVG 46 400 ML IV SCH (21:13)
[2019-02-01 00:57] VITALS: BP 108/70; PULSE 60; RESP 20
[2019-02-01] MEDS: DIPHENHYDRAMINE 50 MG INJ IV PRN ×3 (01:19→15:35)
[2019-02-01] MEDS: HYDROmorphONE 1 MG/ML SYG IV PRN ×7 (01:20→23:59)
[2019-02-01] MEDS: IMMUNE GLOBUL G/GLY/IGA AVG 46 200 ML IVPB SCH ×2 (01:22→21:59)
[2019-02-01 02:00] VITALS: BP 106/52; PULSE 64; RESP 19
[2019-02-01] MEDS: PANTOPRAZOLE 40 MG INJ IV SCH (06:18)
[2019-02-01 08:00] VITALS: BP_SYST 120; BP_SYST 144; BP_DIAS 62; BP_DIAS 75; PULSE 76; PULSE 84; RESP 20
[2019-02-01] MEDS: CYANOCOBALAMIN 500 MCG TAB PO SCH (08:31)
[2019-02-01] MEDS: LIOTHYRONINE 5 MCG TAB PO SCH ×2 (08:31→20:29)
[2019-02-01] MEDS: FAMOTIDINE 20 MG TAB PO SCH ×2 (08:31→20:29)
[2019-02-01] MEDS: LEVOTHYROXINE 100 MCG TAB PO SCH ×2 (08:31→20:29)
[2019-02-01] MEDS: CHOLECALCIFEROL 1,000 UNIT TAB PO SCH (08:31)
[2019-02-01] MEDS: DEXAMETHASONE 4 MG TAB PO SCH (09:50)
[2019-02-01 14:00] VITALS: BP 111/69; PULSE 68; RESP 18
[2019-02-01] MEDS: IMMUNE GLOBUL G/GLY/IGA AVG 46 400 ML IV SCH (16:23)
[2019-02-01 20:00] VITALS: BP 111/54; PULSE 66; RESP 19
[2019-02-02 02:00] VITALS: BP 115/70; PULSE 63; RESP 19
[2019-02-02] MEDS: HYDROmorphONE 1 MG/ML SYG IV PRN ×6 (02:54→18:15)
[2019-02-02] MEDS: PANTOPRAZOLE 40 MG INJ IV SCH (05:51)
[2019-02-02] MEDS: DIPHENHYDRAMINE 50 MG INJ IV PRN ×4 (05:51→18:15)
[2019-02-02 08:00] VITALS: BP 115/62; PULSE 75; RESP 15
[2019-02-02] MEDS: FAMOTIDINE 20 MG TAB PO SCH (08:44)
[2019-02-02] MEDS: LEVOTHYROXINE 100 MCG TAB PO SCH (08:44)
[2019-02-02] MEDS: CHOLECALCIFEROL 1,000 UNIT TAB PO SCH (08:44)
[2019-02-02] MEDS: DEXAMETHASONE 4 MG TAB PO SCH (08:45)
[2019-02-02] MEDS: CYANOCOBALAMIN 500 MCG TAB PO SCH (08:45)
[2019-02-02] MEDS: LIOTHYRONINE 5 MCG TAB PO SCH (09:00)
[2019-02-02] MEDS ORDERED: LIOTHYRONINE 5 MCG TAB PO SCH ×2 (12:00→15:00)
[2019-02-02 14:00] VITALS: BP 121/74; PULSE 63; RESP 19
== END 2019-02-02 18:25 | disposition home or self-care (01) | DRG 813 ==
LOC: E/R 11:01 → PP2 13:58 → CANRESERV 16:36 → PP2 17:03
PROVIDERS: ADMIT Internal Medicine; ATTEND Internal Medicine
PROC: 6A550Z2 Pheresis of Platelets, Single (ICD-10-PCS; principal; 2019-01-31)
DX: D69.3 Immune thrombocytopenic purpura (principal); D57.1 Sickle-cell disease without crisis; E06.3 Autoimmune thyroiditis; M32.9 Systemic lupus erythematosus, unspecified; G89.29 Other chronic pain; Z90.81 Acquired absence of spleen
CPT/HCPCS: 36430; 71045; 80048; 80053; 83735; 84100; 84439; 84443; 85025; 86644; 86850; 86900; 86901; 86945; 87081; 96374; C9113; J1100; J1170; J1200; J1459; J1561; J2405; J7040; P9035

== ENCOUNTER 2019-02-23 09:29 | Emergency (ER) | payer OTHER ==
[~2019-02-23] VITALS: Ht 167.6 cm; Wt 64.9 kg
[~2019-02-23 09:29] MED LIST changes: -DEC4 PO; -ONDA8TAB14 PO
[2019-02-23 09:36] VITALS: Ht 167.6 cm; Wt 64.9 kg
[2019-02-23] MEDS ORDERED: ONDANSETRON 4 MG INJ IV STA (10:58)
[2019-02-23] MEDS ORDERED: HYDROmorphONE 0.5 MG/0.5 ML SYG IV STA (10:58)
[2019-02-23] MEDS ORDERED: SOD CHLORIDE 0.9% 1,000 ML IV ONE (11:00)
[2019-02-23] MEDS ORDERED: ACETAMINOPHEN 325 MG TAB PO ONE (11:00)
[2019-02-23] MEDS ORDERED: DIPHENHYDRAMINE 25 MG CAP PO ONE (11:30)
[2019-02-23 12:41] VITALS: BP 115/78; PULSE 70; RESP 17
== END 2019-02-23 12:42 | disposition home or self-care (01) ==
LOC: E/R 09:29
DX: D69.6 Thrombocytopenia, unspecified (principal); D53.9 Nutritional anemia, unspecified; D57.00 Hb-SS disease with crisis, unspecified
CPT/HCPCS: 36415; 80048; 81025; 85025; 85610; 86850; 86900; 86901; 96374; 96375; J1170; J2405; J7030; Z7502; Z7610